=== PATIENT | male | born 1960 | race Caucasian/White ===

== ENCOUNTER → 2018-06-26 06:47 | Outpatient (CLI) | payer OTHER, SELFPAY ==
--- NOTE | 2018-06-26 06:55 | CT_ITS ---
STUDY: LOW DOSE CT LUNG CANCER SCREENING REASON FOR EXAM: Male, 58 years old. 30 pack-year smoking history. RADIATION DOSAGE (If Supplied By Facility): CTDIvol = ( 3.40 ) mGy, DLP = ( 103.82 ) mGycm TECHNIQUE: No contrast was administered. Low dose technique was utilized (average mAS-38 and kVp 120). 1.25 mm axial source images with a slice interval of 1.25-mm were reconstructed in lung windows. 2.5 mm axial source images with a slice interval of 2.5-mm were reconstructed in lung windows. 5.0 mm axial source images with a slice interval of 5.0-mm were reconstructed in soft tissue windows. Nodule measured using lung windows on PACS and/or independent workstation with automated measurement of minimum and maximum diameter. Nodule measurement reported as average diameter rounded to the nearest whole number. Growth is defined as an increase ins size of greater than 1.5 mm. # of Images: 523 COMPARISON: CT of the chest, January 13, 2016. NODULES: Nodule #: 1 Density: Solid Lung location: Right upper lobe: Along the horizontal fissure Location in series: Series Number: 1002 Image: 143 Size - D1 x D2 mm: 8 x 6 mm: 7 mm average diameter Margin: Smooth Shape: Teardrop Calcification: No Fat: No Temporal comparison: Stable Nodule #: 2 Density: Solid Lung location: Right middle lobe: 0.5 cm from pleura Location in series: Series Number: 1002 Image: 150 Size - D1 x D2 mm: 5 x 5 mm: 5 mm average diameter Margin: Smooth Shape: Round Calcification: No Fat: No Temporal comparison: Stable Nodule #: 3 Density: Solid Lung location: Right lower lobe: Pleural-based Location in series: Series Number: 1002 Image: 171 Size - D1 x D2 mm: 4 x 4 mm: 4 mm average diameter Margin: Smooth Shape: Round Calcification: No Fat: No Temporal comparison: Stable Total lung nodules (excluding granulomas): 3 Emphysema: No Endobronchial lesion: No Aorta: There is minimal atherosclerotic tortuosity of the thoracic aorta without aneurysm. Coronary arteries: There are coronary artery calcifications. Heart: Normal Pulmonary artery: Normal Mediastinal nodes: None Other chest and abdominal findings: Minimal degenerative changes of the thoracic spine. CT/Low Dose CT Lung Screening IMPRESSION: Lung-RADS category 2 - Continue annual screening with LDCT in 12 months. There is no significant interval change. IMPORTANT NOTES FOR USE: ACR Lung-RADS Version 1.0 Assessment Categories Release Date: January 05, 2014 Category: Coded 0-4 bases on nodule(s) with highest degree of suspicion. Negative screen is defined as categories 1 and 2; a positive screen is defined as categories 3 and 4. Category 3 and 4A nodules that are unchanged on interval CT should be coded as category 2, and individuals returned to screening in 12 months. Category 4X: Category 3 or 4 nodules with additional imaging findings that increase the suspicion of lung cancer, such as spiculation, GGN that doubles in size in 1 year, enlarged lymph notes, etc. Category Modifiers: S (significant finding unrelated to lung cancer) and C (prior history of treated lung cancer) may be added to the 0-4 Lung-RADS Electronically Signed: Faustino José DO at 18:25 EDT Tel [phone], Service support ,
== END ==
PROVIDERS: Family Provider Internal Medicine; PCP Internal Medicine; Referring Provider Internal Medicine; Visit Provider Internal Medicine
DX: J44.9 Chronic obstructive pulmonary disease, unspecified (principal)
CPT/HCPCS: G0297

== ENCOUNTER → 2019-05-30 | Outpatient (CLI) | payer OTHER, SELFPAY ==
[2019-05-26 15:26] VITALS: BMI 26.9
--- NOTE | 2019-05-30 06:55 | CT_ITS ---
STUDY: CT PELVIS WITH CONTRAST REASON FOR EXAM: Male, 59 years old. Right groin mass. History of bilateral inguinal hernias. RADIATION DOSAGE (If Supplied By Facility): CTDIvol = ( 18.37 ) mGy, DLP = ( 996.21 ) mGycm TECHNIQUE: Transaxial imaging of the pelvis was performed without oral contrast. 100ml IV/Oral Isovue 300 was administered intravenously. Multiplanar coronal and sagittal images were reformatted. Individualized dose optimization techniques were used for this CT. COMPARISON: None. FINDINGS: Bilateral uncomplicated fat-containing inguinal hernias (axial image 66 series 2). Tiny uncomplicated fat-containing umbilical hernia. Minimal paraspinal muscle atrophy. No soft tissue mass. Vascular calcifications. No vascular occlusion. No aneurysm. Small surgical clips at the right groin (axial image 60 series 2). Prostate calcifications. Normal urinary bladder. Normal visualized portions of the small and large bowel. Normal appendix (axial image 1 series 2). L5 right unilateral pars defect without spondylolisthesis. Mild facet joint arthrosis. Mild multilevel disc bulge/osteophyte complex. Multilevel neural foraminal narrowing with contact of the exiting L4 nerve roots. No acute fracture, dislocation or osseous destruction. Left sacroiliac joint arthrosis with partial osseous fusion (axial image 36 series 2). Mild bilateral hip osteoarthritis. Normal pubic symphysis arthrosis. CT/Pelvis WITH IV Contrast IMPRESSION: Bilateral uncomplicated fat-containing inguinal hernias Tiny uncomplicated fat-containing umbilical hernia Vascular calcifications without occlusion or aneurysm L5 right unilateral pars defect with associated lower lumbar degenerative features Electronically Signed: Amos Park DO at 8:36 EDT Tel , Service support ,
== END | disposition home or self-care (01) ==
LOC: CT 06:53
PROVIDERS: Family Provider Family Medicine; PCP Family Medicine; Referring Provider Surgery; Visit Provider Surgery
DX: R19.09 Other intra-abdominal and pelvic swelling, mass and lump (principal)
CPT/HCPCS: 72193; Q9967

== ENCOUNTER → 2019-06-11 | Outpatient (CLI) | payer OTHER, SELFPAY ==
[2019-06-03 13:34] VITALS: BMI 26.9
[2019-06-11 13:02] LABS: T4 Free Direct 1.09 ng/dL (0.76-1.46); Thyroid Stim Hormone (TSH) 0.65 uIU/mL (0.358-3.74)
[2019-06-11 13:04] LABS: Vitamin D,25 Hydroxy 54.2 ng/mL (29.95-100.01)
== END | disposition home or self-care (01) ==
LOC: MFPLAB 11:22
PROVIDERS: Family Provider Family Medicine; PCP Family Medicine; Visit Provider Family Medicine
DX: E04.1 Nontoxic single thyroid nodule (principal); E55.9 Vitamin D deficiency, unspecified
CPT/HCPCS: 36415; 82306; 84439; 84443

== ENCOUNTER → 2019-06-16 | Outpatient (CLI) | payer OTHER, SELFPAY ==
[2019-06-03 13:34] VITALS: BMI 26.9
--- NOTE | 2019-06-16 09:44 | US_ITS ---
STUDY: THYROID ULTRASOUND REASON FOR EXAM: Male, 59 years old. Nodule. TECHNIQUE: Ultrasound evaluation of the thyroid was performed with real-time and static salazar-scale imaging. COMPARISON: None. FINDINGS: RIGHT LOBE: The right lobe of the thyroid gland measures 5.9 x 2.6 x 2.4 cm. There is a homogeneous echotexture. There are no demonstrated solid, cystic or complex lesions. LEFT LOBE: The left lobe of the thyroid gland measures 5.9 x 2.4 x 1.9 cm. There is a homogeneous echotexture. There are no demonstrated solid, cystic or complex lesions. ISTHMUS: The isthmus measures 4 mm.. The regional lymph nodes are normal. US/Thyroid IMPRESSION: Normal ultrasound examination of the thyroid. Electronically Signed: Hola Regan MD at 22:42 EDT , Service support ,
== END | disposition home or self-care (01) ==
LOC: US 09:43
PROVIDERS: Family Provider Family Medicine; PCP Family Medicine; Referring Provider Family Medicine; Visit Provider Family Medicine
DX: E04.1 Nontoxic single thyroid nodule (principal)
CPT/HCPCS: 76536

== ENCOUNTER 2019-07-08 08:15 | Outpatient (RCR) | payer OTHER, SELFPAY ==
[2019-06-03 13:34] VITALS: BMI 26.9
[2019-07-01 08:27] VITALS: BP 160/111; PULSE 65; RESP 16; TEMP 36.4; BMI 29.3
--- NOTE | 2019-07-01 09:25 | HP.PCM_ITS ---
(1) Lumbar disc disease Status: Chronic Current Visit: No Code(s): M51.9 - Unspecified thoracic, thoracolumbar and lumbosacral intervertebral disc disorder (2) Varicose veins with inflammation Status: Chronic Current Visit: Yes Code(s): I83.10 - Varicose veins of unspecified lower extremity with inflammation (3) Leg swelling Status: Chronic Current Visit: Yes Code(s): M79.89 - Other specified soft tissue disorders (4) Leg edema Status: Chronic Current Visit: Yes Code(s): R60.0 - Localized edema (5) Hypertension Status: Chronic Current Visit: No Code(s): I10 - Essential (primary) hypertension (6) Hyperlipidemia Status: Chronic Current Visit: No Code(s): E78.5 - Hyperlipidemia, unspecified (7) Umbilical hernia without obstruction or gangrene Status: Chronic Current Visit: No Code(s): K42.9 - Umbilical hernia without obstruction or gangrene (8) Bilateral inguinal hernia Status: Chronic Current Visit: No Qualifiers: Code(s): K40.20 - Bilateral inguinal hernia, without obstruction or gangrene, not specified as recurrent (9) Femoral artery aneurysm, right Status: Chronic Current Visit: No Code(s): I72.4 - Aneurysm of artery of lower extremity (10) Venous insufficiency Status: Chronic Current Visit: Yes Code(s): I87.2 - Venous insufficiency (chronic) (peripheral) (11) History of superficial phlebitis Status: Chronic Current Visit: Yes Code(s): Z86.79 - Personal history of other diseases of the circulatory system (12) Postphlebitic syndrome with inflammation Status: Chronic Current Visit: Yes Code(s): I87.029 - Postthrombotic syndrome with inflammation of unspecified lower extremity History of Present Illness Date of Service: 07/01/19 Chief Complaint: Bilateral lower extremity swelling and edema with history of chronic venous insufficiency, varicose veins with inflammation, and superficial thrombophlebitis. History of Wound: This is a 59-year-old male who presents as a referral from his primary care physician with symptoms of swelling and edema in his lower extremities. The patient has a history of multiple episodes of superficial thrombophlebitis in the left lower extremity. He suffers from chronic venous insufficiency and varicose veins with inflammation. The swelling and edema in his lower extremities are more pronounced late each day and in the evenings. He claims to lead an active lifestyle. He sleeps on a flat mattress at night. He has no history of vein procedures in the past. Past Medical History Past Medical History: Chronic Problems (Last Reviewed 06/03/19 @ 13:03 by Estella Bran) Lumbar disc disease (Chronic) Varicose veins with inflammation (Chronic) Leg swelling (Chronic) Leg edema (Chronic) Hypertension (Chronic) Hyperlipidemia (Chronic) History of superficial phlebitis (Chronic) Postphlebitic syndrome with inflammation (Chronic) Umbilical hernia without obstruction or gangrene (Chronic) Bilateral inguinal hernia (Chronic) Groin pain, chronic, right (Chronic) Femoral artery aneurysm, right (Chronic) Venous insufficiency (Chronic) Past Medical History: Patient has a history of hypertension and hyperlipidemia. He is not on medications for these medical problems. His history is negative for myocardial infarction, congestive heart failure, diabetes mellitus, cerebrovascular accident, cancer, renal disease, pulmonary disease, thyroid disease, peripheral arterial occlusive disease, and gastroesophageal reflux disease. He has a history of lumbar disc disease. He has bilateral inguinal hernias and an umbilical hernia. He has previously undergone right femoral artery aneurysm repair. Surgical History: - - Patient is undergone right femoral artery aneurysm [place] [address] Aaron. Right inguinal hernia repair was performed at the age of 10. Patient underwent cholecystectomy in 1999. Allergies/Adverse Reactions: Allergies No Known Allergies Allergy (Verified 05/26/19 15:27) Home Medications: Ambulatory Orders Medication Instructions Recorded aspirin 325 mg tablet 325 mg PO DAILY 05/26/19 Social History: Patient is . 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 He denies use of tobacco currently. He consumes approximately 2 alcoholic beverages per night. Lives: Spouse/ Significant Other Smoking Status: Former smoker Tobacco Use: Non-smoker Alcohol: Occasional - Daily, 2 beverages Drugs: None Review of Systems Constitutional: Denies: Chills, Fever, Weight Change Eyes: Denies: Pain, Vision Change HEENT: Denies: Difficulty Hearing, Difficulty Swallowing, Sinus Congestion Cardiovascular: Denies: Chest Pain, Palpitations Respiratory: Denies: Cough, Shortness of Breath Gastrointestinal: Denies: Diarrhea, Nausea, Vomiting Genitourinary: Denies: Dysuria, Hematuria Endocrine: Denies: Heat/ Cold Intolerance, Polydipsia, Polyuria Hematologic/ Lymphatic: Denies: Easy Bruising, Easy Bleeding - Physical Exam Vital Signs Temp Pulse Resp BP 97.5 F L 65 16 160/111 H 07/01/19 08:27 07/01/19 08:27 07/01/19 08:27 07/01/19 08:27 General: Alert, Oriented x3, Cooperative, No apparent distress, Well developed, Well nourished HEENT: Atraumatic, PERRLA, EOMI, Normocephalic Oral: Moist Mucosa Neck: Supple, No JVD, Negative Carotid Bruits, Negative Hepatojugular Reflux, No Nodes, No Nuchal Rigidity, Trachea Midline Lungs: Clear to auscultation, Normal air movement, No rhonchi, No wheeze, No rales Cardiovascular: Regular rate, Regular Rhythm, Normal S1, Normal S2, No murmurs Abdomen: Soft, Non Tender, Non-Distended Extremities: No clubbing, No cyanosis, No Calf Tenderness, - - Mild bilateral swelling and edema is noted. There are plaque-like superficial lesions on the left lower extremity. These are located distally, just proximal to the left ankle, and involving the left knee. There are otherwise no open wounds or ulcerations. Wound Measurements and Assessment WC - Nurse 1 - General Ulcer Measurement Start: 07/01/19 06:58 Freq: Status: Active Protocol: Activity Type Activity Date Activity User E-Sign Co-Sign Detail Recorded Client Recorded Date Recorded By Document 07/01/19 08:27 [id number] 07/01/19 08:46 07/01/19 08:27 Wound Center Nurse 1 [Edema Assessment] -Lower Limb Edema Present Yes -Right Calf (cm) 37.7 -Right Ankle (cm) 23.7 -Left Calf (cm) 40.8 -Left Ankle (cm) 26.2 WC - Nurse 2 - General Ulcer CM Notes Start: 07/01/19 06:58 Freq: Status: Active Protocol: Activity Type Activity Date Activity User E-Sign Co-Sign Detail Recorded Client Recorded Date Recorded By Document 07/01/19 09:06 [id number] 07/01/19 09:13 07/01/19 09:06 Pain Scale: 0-10 Numeric [Pain] -Is Patient Pain Free? Yes Musculoskeletal: No Muscle Wasting Neurological: Cranial nerves II-XII grossly intact, Neuro grossly intact Psych/Mental Status: Normal Affect, Appropriate, Alert and oriented to time, place, person, mood and affect Debridement Note Post-Debridement Measurements/Treatment WC - Nurse 2 - General Ulcer CM Notes Start: 07/01/19 06:58 Freq: Status: Active Protocol: Activity Type Activity Date Activity User E-Sign Co-Sign Detail Recorded Client Recorded Date Recorded By Document 07/01/19 09:06 [id number] 07/01/19 09:13 [email or web address] 07/01/19 09:06 Pain Scale: 0-10 Numeric Is Patient Pain Free? Yes No debridement was completed today - There are no open wounds or ulcerations Assessment/Plan Active Problems (Last Reviewed 06/03/19 @ 13:03 by Estella Bran) Varicose veins with inflammation (Chronic) Leg swelling (Chronic) Leg edema (Chronic) History of superficial phlebitis (Chronic) Postphlebitic syndrome with inflammation (Chronic) Venous insufficiency (Chronic) Assessment: This is a 59-year-old male who is active. He presented with swelling and edema in his lower extremities bilaterally, worse late each day. He also presented with plaque-like lesions in his left lower extremity. Venous duplex examination has been performed, revealing incompetence of the right great saphenous vein, the right small saphenous vein, the left great saphenous vein, the left small saphenous vein, and the left anterior accessory saphenous vein. Patient also has had numerous previous episodes of superficial thrombophlebitis in the left lower extremity. A regimen of conservative treatment measures have been implemented relative to the patient's venous disease. Patient has been advised to elevate his lower extremities as much as possible. Leg elevation is to be to heart level, or higher. This is to be implemented even during daytime hours. The patient is currently sleeping on a flat mattress at night. Activity has been encouraged. Prolonged idle sitting has been discouraged. Compression is to be implemented, initially by means of SurePress wraps which will be applied on a daily basis by the patient. Patient has been instructed in the appropriate means of application. The plaque-like lesions on the patient's left lower extremity are suspected to be unrelated to his venous disease. Rather, psoriasis or other dermatological abnormalities are suspected. Patient is to be evaluated in the near future by Dermatology. Plan: Patient's blood pressure is noted to be elevated today. He has been advised to collaborate with his primary care physician in terms of blood pressure management. Recommendations with regard to his lower extremity symptoms and manifestations are as above. Conservative treatment measures are to be implemented. Leg elevation, avoidance of idle standing and sitting, active lifestyle, and compression by means of SurePress wraps is to be implemented. We will await the impressions and recommendations of the commodity buyer. Return in 1 week for reassessment. Influenza vaccine was not administered today. The patient is not a smoker. Patient weighs 234 pounds. He stands 6 feet 3 inches tall. His BMI is 29.2, which places him in an overweight category. Weight management strategies have been discussed.
[2019-07-08 08:21] VITALS: BP 157/106; PULSE 60; RESP 18; BMI 29.3
--- NOTE | 2019-07-08 08:50 | PCM.WC.HP ---
(1) Lumbar disc disease Status: Chronic Current Visit: No Code(s): M51.9 - Unspecified thoracic, thoracolumbar and lumbosacral intervertebral disc disorder (2) Varicose veins with inflammation Status: Chronic Current Visit: Yes Code(s): I83.10 - Varicose veins of unspecified lower extremity with inflammation (3) Leg swelling Status: Chronic Current Visit: Yes Code(s): M79.89 - Other specified soft tissue disorders (4) Leg edema Status: Chronic Current Visit: Yes Code(s): R60.0 - Localized edema (5) Hypertension Status: Chronic Current Visit: No Code(s): I10 - Essential (primary) hypertension (6) Hyperlipidemia Status: Chronic Current Visit: No Code(s): E78.5 - Hyperlipidemia, unspecified (7) Umbilical hernia without obstruction or gangrene Status: Chronic Current Visit: No Code(s): K42.9 - Umbilical hernia without obstruction or gangrene (8) Bilateral inguinal hernia Status: Chronic Current Visit: No Qualifiers: Code(s): K40.20 - Bilateral inguinal hernia, without obstruction or gangrene, not specified as recurrent (9) Femoral artery aneurysm, right Status: Chronic Current Visit: No Code(s): I72.4 - Aneurysm of artery of lower extremity (10) Venous insufficiency Status: Chronic Current Visit: Yes Code(s): I87.2 - Venous insufficiency (chronic) (peripheral) (11) History of superficial phlebitis Status: Chronic Current Visit: Yes Code(s): Z86.79 - Personal history of other diseases of the circulatory system (12) Postphlebitic syndrome with inflammation Status: Chronic Current Visit: Yes Code(s): I87.029 - Postthrombotic syndrome with inflammation of unspecified lower extremity History of Present Illness Date of Service: 07/08/19 Chief Complaint: Bilateral lower extremity swelling and edema with history of chronic venous insufficiency, varicose veins with inflammation, and superficial thrombophlebitis. History of Wound: This is a 59-year-old male who presents as a referral from his primary care physician with symptoms of swelling and edema in his lower extremities. The patient has a history of multiple episodes of superficial thrombophlebitis in the left lower extremity. He suffers from chronic venous insufficiency and varicose veins with inflammation. The swelling and edema in his lower extremities are more pronounced late each day and in the evenings. He claims to lead an active lifestyle. He sleeps on a flat mattress at night. He has no history of vein procedures in the past. Past Medical History Past Medical History: Chronic Problems (Last Reviewed 06/03/19 @ 13:03 by Estella Bran) Lumbar disc disease (Chronic) Varicose veins with inflammation (Chronic) Leg swelling (Chronic) Leg edema (Chronic) Hypertension (Chronic) Hyperlipidemia (Chronic) History of superficial phlebitis (Chronic) Postphlebitic syndrome with inflammation (Chronic) Umbilical hernia without obstruction or gangrene (Chronic) Bilateral inguinal hernia (Chronic) Groin pain, chronic, right (Chronic) Femoral artery aneurysm, right (Chronic) Venous insufficiency (Chronic) Surgical History: - - Patient is undergone right femoral artery aneurysm repair [place] [address] Aaron. Right inguinal hernia repair was performed at the age of 10. Patient underwent cholecystectomy in 1999. Allergies/Adverse Reactions: Allergies No Known Allergies Allergy (Verified 05/26/19 15:27) Home Medications: Ambulatory Orders Medication Instructions Recorded aspirin 325 mg tablet 325 mg PO DAILY 05/26/19 Lives: Spouse/ Significant Other Smoking Status: Former smoker Tobacco Use: Non-smoker Alcohol: Occasional - Daily, 2 beverages Drugs: None Review of Systems Constitutional: Denies: Chills, Fever, Weight Change Eyes: Denies: Pain, Vision Change HEENT: Denies: Difficulty Hearing, Difficulty Swallowing, Sinus Congestion Cardiovascular: Denies: Chest Pain, Palpitations Respiratory: Denies: Cough, Shortness of Breath Gastrointestinal: Denies: Diarrhea, Nausea, Vomiting Genitourinary: Denies: Dysuria, Hematuria Endocrine: Denies: Heat/ Cold Intolerance, Polydipsia, Polyuria Hematologic/ Lymphatic: Denies: Easy Bruising, Easy Bleeding - Physical Exam Vital Signs Temp Pulse Resp BP 97.5 F L 60 18 157/106 H 07/01/19 08:27 07/08/19 08:21 07/08/19 08:21 07/08/19 08:21 General: Alert, Oriented x3, Cooperative, No apparent distress, Well developed, Well nourished HEENT: Atraumatic, PERRLA, EOMI, Normocephalic Oral: Moist Mucosa Neck: No JVD Lungs: Normal air movement Abdomen: Non-Distended Extremities: No clubbing, No cyanosis, No Calf Tenderness, - - Mild swelling and edema persist in the lower extremities bilaterally. However, the swelling and edema has diminished since the patient's previous visit. Calf circumferences are decreased, and documented elsewhere. There are no open wounds or ulcerations. There are scattered plaque-like lesions in the left lower extremity, suspected to be psoriatic in nature. Skin: No breakdown - There are some plaque-like, erythematous superficial lesions in the left lower extremity. Wound Measurements and Assessment WC - Nurse 1 - General Ulcer Measurement Start: 07/01/19 06:58 Freq: Status: Active Protocol: Activity Type Activity Date Activity User E-Sign Co-Sign Detail Recorded Client Recorded Date Recorded By Document 07/08/19 08:21 [place] [id number] 07/08/19 08:24 [place] 07/08/19 08:21 Wound Center Nurse 1 [Edema Assessment] -Right Calf (cm) 26 -Right Ankle (cm) 23 -Left Calf (cm) 39.5 -Left Ankle (cm) 25 Musculoskeletal: No Muscle Wasting Neurological: Cranial nerves II-XII grossly intact, Neuro grossly intact Psych/Mental Status: Normal Affect, Appropriate, Alert and oriented to time, place, person, mood and affect Debridement Note Post-Debridement Measurements/Treatment WC - Nurse 2 - General Ulcer CM Notes Start: 07/01/19 06:58 Freq: Status: Active Protocol: Activity Type Activity Date Activity User E-Sign Co-Sign Detail Recorded Client Recorded Date Recorded By Document 07/01/19 09:06 [id number] 07/01/19 09:13 07/01/19 09:06 Pain Scale: 0-10 Numeric Is Patient Pain Free? Yes No debridement was completed today - There are no open wounds or ulcerations Assessment/Plan Active Problems (Last Reviewed 06/03/19 @ 13:03 by Estella Bran) Varicose veins with inflammation (Chronic) Leg swelling (Chronic) Leg edema (Chronic) History of superficial phlebitis (Chronic) Postphlebitic syndrome with inflammation (Chronic) Venous insufficiency (Chronic) Assessment: This is a 59-year-old male who is active. He presented with swelling and edema in his lower extremities bilaterally, worse late each day. He also presented with plaque-like lesions in his left lower extremity. Venous duplex examination has been performed, revealing incompetence of the right great saphenous vein, the right small saphenous vein, the left great saphenous vein, the left small saphenous vein, and the left anterior accessory saphenous vein. Patient also has had numerous previous episodes of superficial thrombophlebitis in the left lower extremity. A regimen of conservative treatment measures have been implemented relative to the patient's venous disease. Patient has been advised to elevate his lower extremities as much as possible. Leg elevation is to be to heart level, or higher. This is to be implemented even during daytime hours. The patient is currently sleeping on a flat mattress at night. Activity has been encouraged. Prolonged idle sitting has been discouraged. Compression is to be continued by means of SurePress wraps which will be applied on a daily basis by the patient. Patient has been instructed in the appropriate means of application. The plaque-like lesions on the patient's left lower extremity are suspected to be unrelated to his venous disease. Rather, psoriasis or other dermatological abnormalities are suspected. Patient is to be evaluated by Dermatology on of this week, 2 days hence. Plan: Recommendations with regard to his lower extremity symptoms and manifestations are as above. Conservative treatment measures are to be continued. Leg elevation, avoidance of idle standing and sitting, active lifestyle, and compression by means of SurePress wraps are to be continued. We will await the impressions and recommendations of the furniture crater. Return in 1 week for reassessment. Influenza vaccine was not administered today. The patient is not a smoker. Patient weighs 234 pounds. He stands 6 feet 3 inches tall. His BMI is 29.2, which places him in an overweight category. Weight management strategies have been discussed.
== END 2019-07-10 23:59 ==
LOC: WC 08:15
PROVIDERS: Family Provider Family Medicine; PCP Family Medicine; Visit Provider Surgery
DX: I83.10 Varicose veins of unspecified lower extremity with inflammation (principal); I87.8 Other specified disorders of veins; M51.36 Other intervertebral disc degeneration, lumbar region; I10 Essential (primary) hypertension; E78.5 Hyperlipidemia, unspecified; I72.4 Aneurysm of artery of lower extremity; Z86.79 Personal history of other diseases of the circulatory system; I87.029 Postthrombotic syndrome with inflammation of unspecified lower extremity; Z79.899 Other long term (current) drug therapy; Z79.82 Long term (current) use of aspirin
CPT/HCPCS: 99212; G0463

== ENCOUNTER 2019-08-05 08:00 | Outpatient (RCR) | payer OTHER, SELFPAY ==
[2019-07-11 01:28] VITALS: BP 157/106; PULSE 60; RESP 18; TEMP 36.4
[2019-07-15 09:16] VITALS: BP 150/101; PULSE 68; RESP 18; TEMP 36.3; BMI 29.3
--- NOTE | 2019-07-15 09:44 | PCM.WC.HP ---
(1) Lumbar disc disease Status: Chronic Current Visit: No Code(s): M51.9 - Unspecified thoracic, thoracolumbar and lumbosacral intervertebral disc disorder (2) Varicose veins with inflammation Status: Chronic Current Visit: Yes Code(s): I83.10 - Varicose veins of unspecified lower extremity with inflammation (3) Leg swelling Status: Chronic Current Visit: Yes Code(s): M79.89 - Other specified soft tissue disorders (4) Leg edema Status: Chronic Current Visit: Yes Code(s): R60.0 - Localized edema (5) Hypertension Status: Chronic Current Visit: No Code(s): I10 - Essential (primary) hypertension (6) Hyperlipidemia Status: Chronic Current Visit: No Code(s): E78.5 - Hyperlipidemia, unspecified (7) History of superficial phlebitis Status: Chronic Current Visit: Yes Code(s): Z86.79 - Personal history of other diseases of the circulatory system (8) Postphlebitic syndrome with inflammation Status: Chronic Current Visit: Yes Code(s): I87.029 - Postthrombotic syndrome with inflammation of unspecified lower extremity (9) Umbilical hernia without obstruction or gangrene Status: Chronic Current Visit: No Code(s): K42.9 - Umbilical hernia without obstruction or gangrene (10) Bilateral inguinal hernia Status: Chronic Current Visit: No Qualifiers: Code(s): K40.20 - Bilateral inguinal hernia, without obstruction or gangrene, not specified as recurrent (11) Groin pain, chronic, right Status: Chronic Current Visit: No Code(s): R10.31 - Right lower quadrant pain; G89.29 - Other chronic pain (12) Femoral artery aneurysm, right Status: Chronic Current Visit: No Code(s): I72.4 - Aneurysm of artery of lower extremity (13) Venous insufficiency Status: Chronic Current Visit: Yes Code(s): I87.2 - Venous insufficiency (chronic) (peripheral) (14) Nummular dermatitis Status: Chronic Current Visit: Yes Code(s): L30.0 - Nummular dermatitis History of Present Illness Date of Service: 07/15/19 Chief Complaint: Bilateral lower extremity swelling and edema with history of chronic venous insufficiency, varicose veins with inflammation, and superficial thrombophlebitis. History of Wound: This is a 59-year-old male who presented as a referral from his primary care physician with symptoms of swelling and edema in his lower extremities. The patient has a history of multiple episodes of superficial thrombophlebitis in the left lower extremity. He suffers from chronic venous insufficiency and varicose veins with inflammation. The swelling and edema in his lower extremities are more pronounced late each day and in the evenings. He claims to lead an active lifestyle. He sleeps on a flat mattress at night. He has no history of vein procedures in the past. Past Medical History Past Medical History: Chronic Problems (Last Reviewed 06/03/19 @ 13:03 by Estella Bran) Lumbar disc disease (Chronic) Varicose veins with inflammation (Chronic) Leg swelling (Chronic) Leg edema (Chronic) Hypertension (Chronic) Hyperlipidemia (Chronic) History of superficial phlebitis (Chronic) Postphlebitic syndrome with inflammation (Chronic) Nummular dermatitis (Chronic) Umbilical hernia without obstruction or gangrene (Chronic) Bilateral inguinal hernia (Chronic) Groin pain, chronic, right (Chronic) Femoral artery aneurysm, right (Chronic) Venous insufficiency (Chronic) Surgical History: - - Patient is undergone right femoral artery aneurysm repair in [address] Aaron. Right inguinal hernia repair was performed at the age of 10. Patient underwent cholecystectomy in 1999. Allergies/Adverse Reactions: Allergies No Known Allergies Allergy (Verified 05/26/19 15:27) Home Medications: Ambulatory Orders Medication Instructions Recorded aspirin 325 mg tablet 325 mg PO DAILY 05/26/19 Smoking Status: Former smoker Tobacco Use: Non-smoker Review of Systems Constitutional: Denies: Chills, Fever, Weight Change Eyes: Denies: Pain, Vision Change HEENT: Denies: Difficulty Hearing, Difficulty Swallowing, Sinus Congestion Cardiovascular: Denies: Chest Pain, Palpitations Respiratory: Denies: Cough, Shortness of Breath Gastrointestinal: Denies: Diarrhea, Nausea, Vomiting Genitourinary: Denies: Dysuria, Hematuria Endocrine: Denies: Heat/ Cold Intolerance, Polydipsia, Polyuria Hematologic/ Lymphatic: Denies: Easy Bruising, Easy Bleeding - Physical Exam Vital Signs Temp Pulse Resp BP 97.3 F L 68 18 150/101 H 07/15/19 09:16 07/15/19 09:16 07/15/19 09:16 07/15/19 09:16 General: Alert, Oriented x3, Cooperative, No apparent distress, Well developed, Well nourished HEENT: Atraumatic, PERRLA, EOMI, Normocephalic Oral: Moist Mucosa Neck: No JVD Lungs: Normal air movement Abdomen: Non-Distended Extremities: No clubbing, No cyanosis, No Calf Tenderness, - - There is no significant swelling or edema in the patient's lower extremities. There are no neno open wounds or ulcerations. The dermatitic lesions on the left lower extremity are markedly improved, and now nearly resolved. There is no sign of infection or cellulitis. Wound Measurements and Assessment WC - Nurse 1 - General Ulcer Measurement Start: 07/15/19 09:16 Freq: Status: Active Protocol: Activity Type Activity Date Activity User E-Sign Co-Sign Detail Recorded Client Recorded Date Recorded By Document 07/15/19 09:16 DL [id number] 07/15/19 09:25 DL 07/15/19 09:16 Wound Center Nurse 1 [Edema Assessment] -Right Calf (cm) 35.5 -Right Ankle (cm) 23 -Left Calf (cm) 38 -Left Ankle (cm) 24 Musculoskeletal: No Muscle Wasting Neurological: Cranial nerves II-XII grossly intact, Neuro grossly intact Psych/Mental Status: Normal Affect, Appropriate, Alert and oriented to time, place, person, mood and affect Debridement Note No debridement was completed today - There are no open wounds or ulcerations. Assessment/Plan Active Problems (Last Reviewed 06/03/19 @ 13:03 by Estella Bran) Varicose veins with inflammation (Chronic) Leg swelling (Chronic) Leg edema (Chronic) History of superficial phlebitis (Chronic) Postphlebitic syndrome with inflammation (Chronic) Nummular dermatitis (Chronic) Venous insufficiency (Chronic) Assessment: This is a 59-year-old male who is active. He presented with swelling and edema in his lower extremities bilaterally, worse late each day. He also presented with plaque-like lesions in his left lower extremity. Venous duplex examination has been performed, revealing incompetence of the right great saphenous vein, the right small saphenous vein, the left great saphenous vein, the left small saphenous vein, and the left anterior accessory saphenous vein. Patient also has had numerous previous episodes of superficial thrombophlebitis in the left lower extremity. A regimen of conservative treatment measures have been implemented relative to the patient's venous disease. Patient has been advised to elevate his lower extremities as much as possible. Leg elevation is to be to heart level, or higher. This is to be implemented even during daytime hours. The patient is currently sleeping on a flat mattress at night. Activity has been encouraged. Prolonged idle sitting has been discouraged. The patient has been evaluated by the Dermatology service Dr. Jules's office, and has been diagnosed with nummular dermatitis, a form of eczema. A topical cream and oral medication have been prescribed. The medical record has been forwarded to my personal office, and I have personally forwarded to this facility, though no record exists of this medical document currently at this location. Suffice to note that the patient has demonstrated significant improvement as a result of the Dermatology prescriptions, both topical and oral. The skin lesions are markedly improved. At today's visit, the patient has been provided a prescription for graduated compression stockings of 20 to 30 mmHg compression, knee-high length. He is to obtain these compression stockings as soon as possible and begin to wear on a daily basis. Plan: Recommendations with regard to his lower extremity symptoms and manifestations are as above. Conservative treatment measures are to be continued. Leg elevation, avoidance of idle standing and sitting, active lifestyle, and compression by means of knee-high graduated compression stockings of 20 to 30 mmHg compression. The patient is to continue with the medications prescribed by the Dermatology service. The patient is to return in 2 to 3 weeks for reassessment. At that time, it is anticipated that discharged from our facility will be likely, given anticipated improvement in his nummular dermatitis and the swelling/edema for which he initially presented. Influenza vaccine was not administered today. The patient is not a smoker. Patient weighs 234 pounds. He stands 6 feet 3 inches tall. His BMI is 29.2, which places him in an overweight category. Weight management strategies have been discussed.
[2019-08-05 08:11] VITALS: BP 155/86; PULSE 67; RESP 20; TEMP 36.8; BMI 29.3
--- NOTE | 2019-08-05 08:36 | HP.PCM_ITS ---
(1) Lumbar disc disease Status: Chronic Current Visit: No Code(s): M51.9 - Unspecified thoracic, thoracolumbar and lumbosacral intervertebral disc disorder (2) Varicose veins with inflammation Status: Chronic Current Visit: Yes Code(s): I83.10 - Varicose veins of unspecified lower extremity with inflammation (3) Leg swelling Status: Chronic Current Visit: Yes Code(s): M79.89 - Other specified soft tissue disorders (4) Leg edema Status: Chronic Current Visit: Yes Code(s): R60.0 - Localized edema (5) Hypertension Status: Chronic Current Visit: No Code(s): I10 - Essential (primary) hypertension (6) Hyperlipidemia Status: Chronic Current Visit: No Code(s): E78.5 - Hyperlipidemia, unspecified (7) History of superficial phlebitis Status: Chronic Current Visit: Yes Code(s): Z86.79 - Personal history of other diseases of the circulatory system (8) Postphlebitic syndrome with inflammation Status: Chronic Current Visit: Yes Code(s): I87.029 - Postthrombotic syndrome with inflammation of unspecified lower extremity (9) Umbilical hernia without obstruction or gangrene Status: Chronic Current Visit: No Code(s): K42.9 - Umbilical hernia without obstruction or gangrene (10) Bilateral inguinal hernia Status: Chronic Current Visit: No Qualifiers: Code(s): K40.20 - Bilateral inguinal hernia, without obstruction or gangrene, not specified as recurrent (11) Groin pain, chronic, right Status: Chronic Current Visit: No Code(s): R10.31 - Right lower quadrant pain; G89.29 - Other chronic pain (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 History of Wound: This is a 59-year-old male who presented as a referral from his primary care physician with symptoms of swelling and edema in his lower extremities. The patient has a history of multiple episodes of superficial thrombophlebitis in the left lower extremity. He suffers from chronic venous insufficiency and varicose veins with inflammation. The swelling and edema in his lower extremities are more pronounced late each day and in the evenings. He claims to lead an active lifestyle. He sleeps on a flat mattress at night. He has no history of vein procedures in the past. Past Medical History Past Medical History: Chronic Problems (Last Reviewed 06/03/19 @ 13:03 by Estella Bran) Lumbar disc disease (Chronic) Varicose veins with inflammation (Chronic) Leg swelling (Chronic) Leg edema (Chronic) Hypertension (Chronic) Hyperlipidemia (Chronic) History of superficial phlebitis (Chronic) Postphlebitic syndrome with inflammation (Chronic) Nummular dermatitis (Chronic) Umbilical hernia without obstruction or gangrene (Chronic) Bilateral inguinal hernia (Chronic) Groin pain, chronic, right (Chronic) Femoral artery aneurysm, right (Chronic) Venous insufficiency (Chronic) Surgical History: - - Patient is undergone right femoral artery aneurysm repair in [address] Aaron. Right inguinal hernia repair was performed at the age of 10. Patient underwent cholecystectomy in 1999. Allergies/Adverse Reactions: Allergies No Known Allergies Allergy (Verified 05/26/19 15:27) Home Medications: Ambulatory Orders Medication Instructions Recorded aspirin 325 mg tablet 325 mg PO DAILY 05/26/19 Smoking Status: Former smoker Tobacco Use: Non-smoker Review of Systems Constitutional: Denies: Chills, Fever, Weight Change Eyes: Denies: Pain, Vision Change HEENT: Denies: Difficulty Hearing, Difficulty Swallowing, Sinus Congestion Cardiovascular: Denies: Chest Pain, Palpitations Respiratory: Denies: Cough, Shortness of Breath Gastrointestinal: Denies: Diarrhea, Nausea, Vomiting Genitourinary: Denies: Dysuria, Hematuria Endocrine: Denies: Heat/ Cold Intolerance, Polydipsia, Polyuria Hematologic/ Lymphatic: Denies: Easy Bruising, Easy Bleeding - Physical Exam Vital Signs Temp Pulse Resp BP 98.2 F 67 20 H 155/86 H 08/05/19 08:11 08/05/19 08:11 08/05/19 08:11 08/05/19 08:11 General: Alert, Oriented x3, Cooperative, No apparent distress, Well developed, Well nourished HEENT: Atraumatic, PERRLA, EOMI, Normocephalic Oral: Moist Mucosa Neck: No JVD Lungs: Normal air movement Abdomen: Non-Distended Extremities: No clubbing, No cyanosis, No edema, No Calf Tenderness, - - There is no significant swelling or edema in the patient's lower extremities. There are no open wounds or ulcerations. There is no sign of infection or cellulitis. The dermatitic changes in the patient's left lower extremity have now completely resolved. Skin: No rashes, No breakdown Wound Measurements and Assessment WC - Nurse 1 - General Ulcer Measurement Start: 07/15/19 09:16 Freq: Status: Active Protocol: Activity Type Activity Date Activity User E-Sign Co-Sign Detail Recorded Client Recorded Date Recorded By Document 08/05/19 08:11 DL [id number] 08/05/19 08:17 DL 08/05/19 08:11 Wound Center Nurse 1 [Edema Assessment] -Right Calf (cm) 36 -Right Ankle (cm) 23.5 -Left Calf (cm) 37.5 -Left Ankle (cm) 24.5 WC - Nurse 2 - General Ulcer CM Notes Start: 07/15/19 09:16 Freq: Status: Active Protocol: Activity Type Activity Date Activity User E-Sign Co-Sign Detail Recorded Client Recorded Date Recorded By Document 08/05/19 08:30 DL [id number] 08/05/19 08:30 DL 08/05/19 08:30 Pain Scale: 0-10 Numeric [Pain] -Is Patient Pain Free? Yes Musculoskeletal: No Muscle Wasting Neurological: Cranial nerves II-XII grossly intact, Neuro grossly intact Psych/Mental Status: Normal Affect, Appropriate, Alert and oriented to time, place, person, mood and affect Debridement Note Post-Debridement Measurements/Treatment WC - Nurse 2 - General Ulcer CM Notes Start: 07/15/19 09:16 Freq: Status: Active Protocol: Activity Type Activity Date Activity User E-Sign Co-Sign Detail Recorded Client Recorded Date Recorded By Document 08/05/19 08:30 DL [id number] 08/05/19 08:30 DL 08/05/19 08:30 Pain Scale: 0-10 Numeric Is Patient Pain Free? Yes No debridement was completed today - There are no open wounds or ulcerations Assessment/Plan Active Problems (Last Reviewed 06/03/19 @ 13:03 by Estella Bran) Varicose veins with inflammation (Chronic) Leg swelling (Chronic) Leg edema (Chronic) History of superficial phlebitis (Chronic) Postphlebitic syndrome with inflammation (Chronic) Nummular dermatitis (Chronic) Venous insufficiency (Chronic) Assessment: This is a 59-year-old male who is active. He presented with swelling and edema in his lower extremities bilaterally, worse late each day. He also presented with plaque-like lesions in his left lower extremity. Venous duplex examination has been performed, revealing incompetence of the right great saphenous vein, the right small saphenous vein, the left great saphenous vein, the left small saphenous vein, and the left anterior accessory saphenous vein. Patient also has had numerous previous episodes of superficial thrombophlebitis in the left lower extremity. A regimen of conservative treatment measures have been implemented relative to the patient's venous disease. Patient has been advised to elevate his lower extremities as much as possible. Leg elevation is to be to heart level, or higher. This is to be implemented even during daytime hours. The patient is currently sleeping on a flat mattress at night. Activity has been encouraged. Prolonged idle sitting has been discouraged. The patient has been evaluated by the Dermatology service Dr. Jules's office, and has been diagnosed with nummular dermatitis, a form of eczema. A topical cream and oral medication have been prescribed. As result of Dr. Jules's medication protocol, the patient has demonstrated significant improvement as a result of the Dermatology prescriptions, both topical and oral. The dermatitic changes in the patient's left lower extremity are now completely resolved, and his left lower extremity is back to normal. Plan: Recommendations with regard to his lower extremity symptoms and manifestations are as above. Conservative treatment measures are to be continued. Leg elevation, avoidance of idle standing and sitting, active lifestyle, and compression by means of knee-high graduated compression stockings of 20 to 30 mmHg compression. The patient has obtained his knee-high graduated compression stockings, which are of 20 to 30 mmHg compression. He is wearing t hese daily without any complaints. The nummular dermatitis in the left lower extremity has now completely resolved as result of the prescriptions provided by Dr. Jules. The patient has implemented the conservative treatment measures relative to the swelling in his lower extremities and his venous disease, and appears to be doing well, with no significant swelling noted in his lower extremities. As result of the patient's vast improvement, he will now be discharged, and will follow-up henceforth on an as-needed basis. Influenza vaccine was not administered today. The patient is not a smoker. Patient weighs 234 pounds. He stands 6 feet 3 inches tall. His BMI is 29.2, which places him in an overweight category. Weight management strategies have been discussed.
== END 2019-08-09 23:59 ==
LOC: WC 08:00
PROVIDERS: Family Provider Family Medicine; PCP Family Medicine; Visit Provider Surgery
DX: I83.10 Varicose veins of unspecified lower extremity with inflammation (principal); M51.36 Other intervertebral disc degeneration, lumbar region; M79.89 Other specified soft tissue disorders; I10 Essential (primary) hypertension; R60.0 Localized edema; E78.5 Hyperlipidemia, unspecified; L30.0 Nummular dermatitis; Z87.891 Personal history of nicotine dependence; Z79.82 Long term (current) use of aspirin; M51.34 Other intervertebral disc degeneration, thoracic region; M51.35 Other intervertebral disc degeneration, thoracolumbar region; M51.37 Other intervertebral disc degeneration, lumbosacral region
CPT/HCPCS: 99212; G0463

== ENCOUNTER → 2019-08-19 15:37 | Outpatient (CLI) | payer OTHER, SELFPAY ==
[2019-08-05 08:11] VITALS: BMI 29.3
[2019-08-19 18:35] LABS: AST(SGOT) 20 U/L (15-37); Alanine Aminotransfer ALT/SGPT 26 U/L (16-61); Albumin, Serum 3.9 g/dL (3.2-5.0); Alkaline Phosphatase 120 U/L (45-117); Anion Gap 7 (5-15); BUN 13 mg/dL (7-18); BUN/Creat Ratio 12.1 RATIO (10-20); CPK Total, Creatine Kinase 92 U/L (39-308); Calcium,Total 8.6 mg/dL (8.5-10.1); Chloride 105 mmol/L (98-107); Creatinine, Serum 1.07 mg/dL (0.70-1.30); EST Glomerular Filtration Rate 75 mL/min (>60); Est Glom Filt Rate - Afr Amer 91 mL/min (>60); Ferritin 146 ng/mL (26-388); Globulin 3.8 g/dL (2.2-4.2); Glucose 68 mg/dL (74-106); Magnesium 2.2 mg/dL (1.6-2.6); Potassium 3.3 mmol/L (3.5-5.1); Protein, Total 7.7 g/dL (6.4-8.2); Sodium Level 141 mmol/L (136-145)
== END ==
PROVIDERS: Family Provider Family Medicine; PCP Family Medicine; Visit Provider Family Medicine
DX: I10 Essential (primary) hypertension (principal); R25.2 Cramp and spasm
CPT/HCPCS: 36415; 80053; 82550; 82728; 83735

== ENCOUNTER → 2019-08-26 12:49 | Outpatient (CLI) | payer OTHER, SELFPAY ==
[2019-08-05 08:11] VITALS: BMI 29.3
--- NOTE | 2019-08-26 12:54 | ART_ITS ---
Reason For Study: claudication Procedure A bilateral lower extremity continuous wave Doppler with analog waveform analysis and ankle brachial indexes. Left Segmental Pressures Left brachial= 136mmHg. Left posterior tibial artery = 161mmHg. Left dorsalis pedis artery = 148mmHg. The left dorsalis pedis waveforms are triphasic. The left posterior tibial artery waveforms are triphasic. Right Segmental Pressures Right brachial= 131mmHg. Right posterior tibial artery = 166mmHg. Right dorsalis pedis artery = 172mmHg. The right dorsalis pedis waveforms are triphasic. The right posterior tibial artery waveforms are triphasic. Interpretation Summary Triphasic Doppler waveforms are noted at ankle level bilaterally. Resting ankle-brachial indices are normal bilaterally. The patient was exercised for 5 minutes, following which ankle pressures augmented bilaterally, which is a normal physiological response. There is no evidence of significant arterial occlusive disease in the lower extremities bilaterally. Ordering Physician: Shay Olvera Performed By: ELIZABETH DELA CRUZ Henrique
== END ==
PROVIDERS: Family Provider Family Medicine; PCP Family Medicine; Referring Provider Family Medicine; Visit Provider Family Medicine
DX: I73.9 Peripheral vascular disease, unspecified (principal)
CPT/HCPCS: 93922

== ENCOUNTER → 2019-09-09 14:05 | Outpatient (CLI) | payer OTHER, SELFPAY ==
[2019-09-09 15:25] LABS: Anion Gap 5 (5-15); BUN 11 mg/dL (7-18); BUN/Creat Ratio 10.7 RATIO (10-20); Calcium,Total 8.5 mg/dL (8.5-10.1); Chloride 108 mmol/L (98-107); Creatinine, Serum 1.03 mg/dL (0.70-1.30); EST Glomerular Filtration Rate 79 mL/min (>60); Est Glom Filt Rate - Afr Amer 95 mL/min (>60); Glucose 74 mg/dL (74-106); Potassium 3.5 mmol/L (3.5-5.1); Sodium Level 143 mmol/L (136-145)
== END ==
PROVIDERS: Family Provider Family Medicine; PCP Family Medicine; Visit Provider Family Medicine
DX: I10 Essential (primary) hypertension (principal)
CPT/HCPCS: 36415; 80048

== ENCOUNTER → 2020-01-27 12:31 | Outpatient (CLI) | payer OTHER, SELFPAY ==
--- NOTE | 2020-01-27 12:34 | RAD_ITS ---
STUDY: X-RAY - RIGHT KNEE REASON FOR EXAM: Male, 59 years old. knee pain, left more than right TECHNIQUE: 4 view(s) of the knee. COMPARISON: None. FINDINGS: Normal visualized distal femur. Normal visualized proximal tibia and fibula. Normal proximal tibiofibular articulation. Normal medial femorotibial compartment. Normal lateral femorotibial compartment. Normal patellofemoral articulation. The soft tissue structures are unremarkable. RAD/Knee 4 or More Views IMPRESSION: Normal x-ray examination of the knee. Electronically Signed: Grabiel Riley MD at 13:02 EDT Tel , Service support ,
--- NOTE | 2020-01-27 12:34 | RAD_ITS ---
STUDY: X-RAY - LEFT KNEE REASON FOR EXAM: Male, 59 years old. knee pain, left more than right TECHNIQUE: 4 view(s) of the knee. COMPARISON: None. FINDINGS: Normal visualized distal femur. Normal visualized proximal tibia and fibula. Normal proximal tibiofibular articulation. Normal medial femorotibial compartment. Normal lateral femorotibial compartment. Normal patellofemoral articulation. There is a soft tissue prominence in the suprapatellar region suggesting a small volume joint effusion. The soft tissue structures are unremarkable. RAD/Knee 4 or More Views IMPRESSION: Effusion, as described above. MRI would be useful. Electronically Signed: Grabiel Riley MD at 13:01 EDT Tel , Service support ,
== END ==
PROVIDERS: PCP Family Medicine; Referring Provider Family Medicine; Visit Provider Family Medicine
DX: M25.569 Pain in unspecified knee (principal)
CPT/HCPCS: 73564

== ENCOUNTER → 2020-02-04 13:12 | Outpatient (CLI) | payer OTHER, SELFPAY ==
--- NOTE | 2020-02-04 13:18 | VDLE_ITS ---
Reason For Study: Pain in lt leg RIGHT LEFT CFV is compressible, spontaneous, phasic, CFV is compressible, spontaneous, phasic, competent and demonstrates normal competent, and demonstrates normal augmentation. augmentation. Procedure FV is compressible, spontaneous, phasic, Exam performed in department. competent and demonstrates normal A preliminary report was called and/or faxed augmentation. to [facility]. POP V is compressible, spontaneous, phasic, competent and demonstrates normal augmentation. T/P Trunk is compressible. PTV is compressible. LT PerV is compressible. GSV is partially compressible with bright intraluminal echoes consistent with chronic SVT. Interpretation Summary Deep veins of the left lower extremity are patent and compressible segmentally. There is no evidence of left lower extremity deep vein thrombosis. Valvular competence appears intact within the proximal deep venous system on the left . Chronic venous changes are noted in the left great saphenous vein, which is partially compressible and demonstrates bright intraluminal echogenicity. Ordering Physician: Mary Yancey Referring Physician: Shay Olvera Performed By: Yvonne Katz RVT
== END ==
PROVIDERS: PCP Family Medicine; Referring Provider Registered Nurse; Visit Provider Registered Nurse
DX: R22.42 Localized swelling, mass and lump, left lower limb (principal); M79.605 Pain in left leg
CPT/HCPCS: 93971

== ENCOUNTER → 2020-03-10 12:07 | Outpatient (CLI) | payer OTHER, SELFPAY ==
[2020-03-10 13:51] LABS: Bacteria 0 SEEN /hpf (None Seen); Red Blood Cells-Urine 0 SEEN /hpf (0-5); White Blood Cells 0 SEEN /hpf (0-5)
[2020-03-10 15:22] LABS: Color, Urine Yellow (Yellow); Glucose, Dipstick Normal (Normal); Ketone-Dipstick Negative (Negative); Leukocyte Esterase-Dipstick Negative /ul (Negative); Nitrite-Dipstick Negative (Negative); Occult Blood-Urine Negative /ul (Negative); Protein-Dipstick Negative (Negative); Specific Gravity, Urine 1.015 (1.002-1.030); Urine Bilirubin Dipstick Negative (Negative); Urine Clarity Sl. Cloudy (Clear); Urine Urobilinogen 1 mg/dl (Normal)
[2020-03-10 15:28] LABS: Mucous, Urine 1+ /hpf (<or=2+); Squamous Epithelial Cells - UA 0-5 SEEN /hpf (0-5)
[2020-03-10 15:41] LABS: Absolute Lymphocyte Count 2.33 X10^3/uL (0.83-4.51); Absolute Neutrophil Count 2.5 X10^3/uL (2.0-7.7); Basophil# 0.07 X10^3/uL; Basophil% 1.3 % (0-1); Eosinophil# 0.15 X10^3/uL; Eosinophils% 2.7 % (0-5); Hematocrit 47.3 % (40-54); Hemoglobin 15.2 g/dL (13.0-16.5); Lymphocyte # 2.33 X10^3/ul (4.0); Lymphocyte % 42.3 % (19-41); Mean Corp Hgb Conc 32.1 g/dL (32-36); Mean Corpuscular Hgb 30.5 pg (27.0-32.0); Mean Platelet Vol. 9.2 fl (6.2-12.0); Monocyte# 0.45 X10^3/uL; Monocyte% 8.2 % (0-10); NRBC Flagged by Analyzer 0 % (0-5); Neutrophil # 2.48 X10^3/uL (2.7-7.7); Platelet Count 237 K/mm3 (150-450); RBC Distribution Width CV 14.6 % (11.6-14.6); RBC Distribution Width SD 50.3 fl (35.1-43.9); Red Blood Count 4.98 M/mm3 (4.6-6.2); White Blood Count 5.5 K/mm3 (4.4-11.0)
[2020-03-10 15:42] LABS: Vitamin D,25 Hydroxy 95.7 ng/mL
[2020-03-10 15:49] LABS: ALB/GLOB Ratio 1.1 RATIO (0.9-2.4); AST(SGOT) 17 U/L (15-37); Alanine Aminotransfer ALT/SGPT 30 U/L (16-61); Alkaline Phosphatase 90 U/L (45-117); Anion Gap 3 (5-15); BUN 16 mg/dL (7-18); BUN/Creat Ratio 15.5 RATIO (10-20); Calcium,Total 8.9 mg/dL (8.5-10.1); Chloride 109 mmol/L (98-107); Cholesterol 210 mg/dL (200); Creatinine, Serum 1.03 mg/dL (0.70-1.30); EST Glomerular Filtration Rate 79 mL/min (>60); Est Glom Filt Rate - Afr Amer 95 mL/min (>60); Globulin 3.7 g/dL (2.2-4.2); Glucose 81 mg/dL (74-106); High Density Lipoprotein 38 mg/dL; Potassium 4.6 mmol/L (3.5-5.1); Protein, Total 7.7 g/dL (6.4-8.2); Sodium Level 140 mmol/L (136-145); Triglycerides 240 mg/dL; Very Low Density Lipoprotein 48 mg/dL (5-40)
== END ==
PROVIDERS: PCP Family Medicine; Visit Provider Family Medicine
DX: I10 Essential (primary) hypertension (principal); E55.9 Vitamin D deficiency, unspecified
CPT/HCPCS: 36415; 80053; 80061; 81001; 82306; 85025

== ENCOUNTER → 2020-03-23 06:40 | Outpatient (CLI) | payer OTHER, SELFPAY ==
--- NOTE | 2020-03-23 06:46 | CT_ITS ---
STUDY: LOW DOSE CT LUNG CANCER SCREENING REASON FOR EXAM: Male, 60 years old. LUNG NODULE. EX-SMOKER WITH 38 YEAR 1PPD HISTORY RADIATION DOSAGE (If Supplied By Facility): CTDIvol = ( 4.02 ) mGy, DLP = ( 138.43 ) mGycm TECHNIQUE: No contrast was administered. Low dose technique was utilized (average mAS-38 and kVp 120). 1.25 mm axial source images with a slice interval of 1.25-mm were reconstructed in lung windows. 2.5 mm axial source images with a slice interval of 2.5-mm were reconstructed in lung windows. 5.0 mm axial source images with a slice interval of 5.0-mm were reconstructed in soft tissue windows. Nodule measured using lung windows on PACS and/or independent workstation with automated measurement of minimum and maximum diameter. Nodule measurement reported as average diameter rounded to the nearest whole number. Growth is defined as an increase ins size of greater than 1.5 mm. COMPARISON: Comparison is made with prior examination dated June 26, 2018. NODULES: Stable 6 mm x 7 mm noncalcified nodule in the anterior aspect of the right upper lobe as seen on axial image #148. Stable 4.4 mm nodule in the lateral aspect of the right middle lobe as seen on axial image #168. This is pleural-based. Focal pleural thickening is seen at that site. Stable 4 mm nodular density in the right middle lobe as seen on axial image #155. Emphysema: Mild degree of the scarring at the lung apices. Endobronchial lesion: None Aorta: Mild degree of atherosclerotic calcification of the aortic arch. Coronary arteries: Coronary artery calcification. Mediastinal nodes: Small benign-appearing mediastinal lymph nodes. Other chest and abdominal findings: CT/Low Dose CT Lung Screening IMPRESSION: Lung-RADS category 2 - Continue annual screening with LDCT in 12 months. IMPORTANT NOTES FOR USE: ACR Lung-RADS Version 1.0 Assessment Categories Release Date: January 05, 2014 Category: Coded 0-4 bases on nodule(s) with highest degree of suspicion. Negative screen is defined as categories 1 and 2; a positive screen is defined as categories 3 and 4. Category 3 and 4A nodules that are unchanged on interval CT should be coded as category 2, and individuals returned to screening in 12 months. Category 4X: Category 3 or 4 nodules with additional imaging findings that increase the suspicion of lung cancer, such as spiculation, GGN that doubles in size in 1 year, enlarged lymph notes, etc. Category Modifiers: S (significant finding unrelated to lung cancer) and C (prior history of treated lung cancer) may be added to the 0-4 Lung-RADS Electronically Signed: Kendrick Jacobo, at 13:11 EDT , Service support ,
== END ==
PROVIDERS: PCP Family Medicine; Referring Provider Family Medicine; Visit Provider Family Medicine
DX: R91.1 Solitary pulmonary nodule (principal)
CPT/HCPCS: G0297

== ENCOUNTER → 2020-09-14 09:50 | Outpatient (CLI) | payer OTHER, SELFPAY ==
[2020-09-14 12:41] LABS: ALB/GLOB Ratio 1.1 RATIO (0.9-2.4); AST(SGOT) 15 U/L (15-37); Alanine Aminotransfer ALT/SGPT 27 U/L (16-61); Albumin, Serum 3.8 g/dL (3.2-5.0); Alkaline Phosphatase 105 U/L (45-117); Anion Gap 4 (5-15); BUN 12 mg/dL (7-18); BUN/Creat Ratio 11.8 RATIO (10-20); Calcium,Total 8.7 mg/dL (8.5-10.1); Chloride 107 mmol/L (98-107); Cholesterol 201 mg/dL (200); Creatinine, Serum 1.02 mg/dL (0.70-1.30); EST Glomerular Filtration Rate 79 mL/min (>60); Est Glom Filt Rate - Afr Amer 96 mL/min (>60); Globulin 3.5 g/dL (2.2-4.2); Glucose 73 mg/dL (74-106); High Density Lipoprotein 33 mg/dL; Potassium 4.1 mmol/L (3.5-5.1); Protein, Total 7.3 g/dL (6.4-8.2); Sodium Level 140 mmol/L (136-145); Triglycerides 200 mg/dL; Very Low Density Lipoprotein 40 mg/dL (5-40)
[2020-09-14 12:47] LABS: Vitamin D,25 Hydroxy 52.8 ng/mL
== END ==
PROVIDERS: PCP Family Medicine; Referring Provider Family Medicine; Visit Provider Family Medicine
DX: I10 Essential (primary) hypertension (principal); E55.9 Vitamin D deficiency, unspecified
CPT/HCPCS: 36415; 80053; 80061; 82306

== ENCOUNTER → 2020-09-29 09:13 | Outpatient (CLI) | payer OTHER, SELFPAY ==
[2020-09-29 10:44] LABS: PSA,Total - Annual Screen 1.39 ng/mL (0.00-4.00)
== END ==
PROVIDERS: PCP Family Medicine; Referring Provider Family Medicine; Visit Provider Family Medicine
DX: Z12.5 Encounter for screening for malignant neoplasm of prostate (principal)
CPT/HCPCS: 36415; 84153; G0103

== ENCOUNTER → 2021-03-29 08:46 | Outpatient (CLI) | payer OTHER, SELFPAY ==
[2021-03-29 10:06] LABS: Absolute Lymphocyte Count 2.46 X10^3/uL (0.83-4.51); Absolute Neutrophil Count 2.7 X10^3/uL (2.0-7.7); Basophil# 0.09 X10^3/uL; Basophil% 1.5 % (0-1); Eosinophil# 0.27 X10^3/uL; Eosinophils% 4.4 % (0-5); Hemoglobin 15.2 g/dL (13.0-16.5); Lymphocyte # 2.46 X10^3/ul (0.83-4.51); Lymphocyte % 40.4 % (19-41); Mean Corpuscular Hgb 30.6 pg (27.0-32.0); Mean Corpuscular Volume 92.6 fL (80-94); Mean Platelet Vol. 9.5 fl (6.2-12.0); Monocyte# 0.54 X10^3/uL; Monocyte% 8.9 % (0-10); NRBC Flagged by Analyzer 0 % (0-5); Neutrophil # 2.67 X10^3/uL (2.7-7.7); Neutrophil % 43.8 % (47-70); Platelet Count 243 K/mm3 (150-450); RBC Distribution Width CV 14.1 % (11.6-14.6); RBC Distribution Width SD 47.9 fl (35.1-43.9); Red Blood Count 4.97 M/mm3 (4.6-6.2); White Blood Count 6.1 K/mm3 (4.4-11.0)
[2021-03-29 10:26] LABS: Microalbumin,Random Urine 11.9 mg/L (NO RANGE EST.)
[2021-03-29 10:27] LABS: ALB/GLOB Ratio 1.1 RATIO (0.9-2.4); AST(SGOT) 24 U/L (15-37); Alanine Aminotransfer ALT/SGPT 38 U/L (16-61); Albumin, Serum 3.8 g/dL (3.2-5.0); Alkaline Phosphatase 113 U/L (45-117); Anion Gap 7 (5-15); BUN 10 mg/dL (7-18); BUN/Creat Ratio 9.7 RATIO (10-20); Calcium,Total 8.6 mg/dL (8.5-10.1); Chloride 106 mmol/L (98-107); Creatinine, Serum 1.03 mg/dL (0.70-1.30); EST Glomerular Filtration Rate 78 mL/min (>60); Est Glom Filt Rate - Afr Amer 95 mL/min (>60); Globulin 3.5 g/dL (2.2-4.2); Glucose 67 mg/dL (74-106); Magnesium 2.4 mg/dL (1.6-2.6); Potassium 4.5 mmol/L (3.5-5.1); Protein, Total 7.3 g/dL (6.4-8.2); Sodium Level 141 mmol/L (136-145); Vitamin D,25 Hydroxy 66.9 ng/mL
== END ==
PROVIDERS: PCP Family Medicine; Visit Provider Family Medicine
DX: I10 Essential (primary) hypertension (principal); E55.9 Vitamin D deficiency, unspecified
CPT/HCPCS: 80053; 82043; 82306; 82570; 83735; 84443; 85025

== ENCOUNTER → 2021-04-06 07:19 | Outpatient (CLI) | payer OTHER, SELFPAY ==
--- NOTE | 2021-04-06 07:21 | CT_ITS ---
STUDY: CT CHEST WITHOUT CONTRAST REASON FOR EXAM: Male, 61 years old. History of pulmonary nodule. History of 38 year pack history. RADIATION DOSAGE (If Supplied By Facility): CTDIvol = ( 15.72 ) mGy, DLP = ( 542.97 ) mGycm TECHNIQUE: Transaxial imaging was performed without the administration of intravenous contrast material. Multiplanar coronal and sagittal images were reformatted. Individualized dose optimization techniques were used for this CT. COMPARISON: Comparison is made with prior study dated 03/23/2020. FINDINGS: Stable small benign-appearing bilateral axillary Stable 6 mm x 7 mm noncalcified nodule in the anterior aspect of the right upper lobe as seen on axial image #74. Stable 4.4 mm nodule in the lateral aspect of the right middle lobe as seen on axial image #87. Stable mild degree of scarring at the lung apices and in the lower. There are calcifications of the coronary arteries. There are multiple small lymph nodes within the mediastinum, which are normal in size and morphology most compatible with reactive lymph hyperplasia. Normal hilar regions. Normal unenhanced pulmonary arteries. There is atherosclerotic calcification of the aortic arch . There are multi-level degenerative changes of the thoracic spine. There is no demonstrated abnormality of the visualized upper abdomen. CT/Chest without Contrast IMPRESSION: Stable examination. 12 month follow-up examination is suggested. Electronically Signed: Kendrick Jacobo MD at 13:00 EDT , Service support ,
== END ==
PROVIDERS: PCP Family Medicine; Referring Provider Family Medicine; Visit Provider Family Medicine
DX: R91.1 Solitary pulmonary nodule (principal)
CPT/HCPCS: 71250

== ENCOUNTER 2021-10-04 09:38 | Outpatient (CLI) | payer OTHER, SELFPAY ==
[2021-10-04 09:43] LABS: Bacteria 0 SEEN /hpf (None Seen); Red Blood Cells-Urine 0 SEEN /hpf (0-5); White Blood Cells 0 SEEN /hpf (0-5)
[2021-10-04 12:16] LABS: Absolute Lymphocyte Count 2.05 X10^3/uL (0.83-4.51); Absolute Neutrophil Count 3.5 X10^3/uL (2.0-7.7); Basophil# 0.07 X10^3/uL; Basophil% 1.1 % (0-1); Eosinophil# 0.16 X10^3/uL; Eosinophils% 2.5 % (0-5); Hematocrit 46.9 % (40-54); Hemoglobin 15.2 g/dL (13.0-16.5); Lymphocyte # 2.05 X10^3/ul (0.83-4.51); Lymphocyte % 32.2 % (19-41); Mean Corp Hgb Conc 32.4 g/dL (32-36); Mean Corpuscular Hgb 30.2 pg (27.0-32.0); Mean Corpuscular Volume 93.2 fL (80-94); Monocyte# 0.55 X10^3/uL; Monocyte% 8.6 % (0-10); NRBC Flagged by Analyzer 0 % (0-5); Neutrophil # 3.51 X10^3/uL (2.7-7.7); Neutrophil % 55.1 % (47-70); Platelet Count 228 K/mm3 (150-450); RBC Distribution Width CV 14.4 % (11.6-14.6); RBC Distribution Width SD 49.1 fl (35.1-43.9); Red Blood Count 5.03 M/mm3 (4.6-6.2); White Blood Count 6.4 K/mm3 (4.4-11.0)
[2021-10-04 12:30] LABS: Vitamin D,25 Hydroxy 78.8 ng/mL
[2021-10-04 12:42] LABS: Color, Urine Yellow (Yellow); Glucose, Dipstick Normal (Normal); Ketone-Dipstick Negative (Negative); Leukocyte Esterase-Dipstick Negative /ul (Negative); Nitrite-Dipstick Negative (Negative); Occult Blood-Urine Negative /ul (Negative); Protein-Dipstick 15 mg/dl (Negative); Urine Bilirubin Dipstick Negative (Negative); Urine Clarity Sl. Cloudy (Clear); Urine Urobilinogen Normal (Normal)
[2021-10-04 12:44] LABS: AST(SGOT) 22 U/L (15-37); Alanine Aminotransfer ALT/SGPT 31 U/L (16-61); Albumin, Serum 3.8 g/dL (3.2-5.0); Alkaline Phosphatase 96 U/L (45-117); Anion Gap 6 (5-15); BUN 13 mg/dL (7-18); BUN/Creat Ratio 13.7 RATIO (10-20); Chloride 107 mmol/L (98-107); Creatinine, Serum 0.95 mg/dL (0.70-1.30); EST Glomerular Filtration Rate 86 mL/min (>60); Est Glom Filt Rate - Afr Amer 104 mL/min (>60); Globulin 3.8 g/dL (2.2-4.2); Glucose 73 mg/dL (74-106); PSA,Total - Annual Screen 1.25 ng/mL (0.00-4.00); Potassium 3.8 mmol/L (3.5-5.1); Protein, Total 7.6 g/dL (6.4-8.2); Sodium Level 141 mmol/L (136-145)
[2021-10-04 12:49] LABS: Mucous, Urine 1+ /hpf (<or=2+); Squamous Epithelial Cells - UA 0-5 SEEN /hpf (0-5)
== END 2021-10-04 23:59 | disposition short-term general hospital (02) ==
LOC: MTLAB 09:39
PROVIDERS: PCP Family Medicine; Referring Provider Family Medicine; Visit Provider Family Medicine
DX: I10 Essential (primary) hypertension (principal); E55.9 Vitamin D deficiency, unspecified; Z12.5 Encounter for screening for malignant neoplasm of prostate
CPT/HCPCS: 36415; 80053; 81001; 82306; 84153; 85025; G0103

== ENCOUNTER → 2023-02-13 | Outpatient (CLI) | payer OTHER, SELFPAY ==
[2023-02-13 11:57] LABS: Bacteria 0 SEEN /hpf (None Seen); Mucous, Urine 0 SEEN /hpf (<or=2+); Red Blood Cells-Urine 0 SEEN /hpf (0-5); White Blood Cells 0 SEEN /hpf (0-5)
[2023-02-13 14:57] LABS: Color, Urine Yellow (Yellow); Glucose, Dipstick Normal (Normal); Ketone-Dipstick Negative (Negative); Leukocyte Esterase-Dipstick Negative /ul (Negative); Nitrite-Dipstick Negative (Negative); Occult Blood-Urine Negative /ul (Negative); Protein-Dipstick Negative (Negative); Specific Gravity, Urine 1.015 (1.002-1.030); Urine Bilirubin Dipstick Negative (Negative); Urine Clarity Clear (Clear); Urine Urobilinogen 4 mg/dl (Normal)
[2023-02-13 15:01] LABS: Absolute Lymphocyte Count 2.98 X10^3/uL (0.83-4.51); Absolute Neutrophil Count 2.4 X10^3/uL (2.0-7.7); Basophil# 0.09 X10^3/uL; Basophil% 1.4 % (0-1); Eosinophil# 0.23 X10^3/uL; Eosinophils% 3.7 % (0-5); Hematocrit 46.8 % (40-54); Hemoglobin 15.4 g/dL (13.0-16.5); Lymphocyte # 2.98 X10^3/ul (0.83-4.51); Lymphocyte % 47.6 % (19-41); Mean Corp Hgb Conc 32.9 g/dL (32-36); Mean Corpuscular Volume 94.2 fL (80-94); Monocyte# 0.57 X10^3/uL; Monocyte% 9.1 % (0-10); NRBC Flagged by Analyzer 0 % (0-5); Neutrophil # 2.37 X10^3/uL (2.7-7.7); Neutrophil % 37.9 % (47-70); Platelet Count 241 K/mm3 (150-450); RBC Distribution Width CV 14.1 % (11.6-14.6); RBC Distribution Width SD 48.4 fl (35.1-43.9); Red Blood Count 4.97 M/mm3 (4.6-6.2); White Blood Count 6.3 K/mm3 (4.4-11.0)
[2023-02-13 15:09] LABS: Calcium Oxalate Crystals Ur 1+ /hpf (<or=2+); Squamous Epithelial Cells - UA 0-5 SEEN /hpf (0-5)
[2023-02-13 15:27] LABS: Vitamin D,25 Hydroxy 78.7 ng/mL
[2023-02-13 15:37] LABS: ALB/GLOB Ratio 1.1 RATIO (0.9-2.4); AST(SGOT) 24 U/L (15-37); Alanine Aminotransfer ALT/SGPT 29 U/L (16-61); Albumin, Serum 3.6 g/dL (3.2-5.0); Alkaline Phosphatase 102 U/L (45-117); Anion Gap 4 (5-15); BUN 13 mg/dL (7-18); BUN/Creat Ratio 14.6 RATIO (10-20); Calcium,Total 8.5 mg/dL (8.5-10.1); Chloride 109 mmol/L (98-107); Cholesterol 181 mg/dL (200); Creatinine, Serum 0.89 mg/dL (0.70-1.30); EST Glomerular Filtration Rate 92 mL/min (>60); Est Glom Filt Rate - Afr Amer 112 mL/min (>60); Globulin 3.4 g/dL (2.2-4.2); Glucose 80 mg/dL (74-106); High Density Lipoprotein 33 mg/dL; PSA,Total - Annual Screen 1.62 ng/mL (0.00-4.00); Potassium 4.4 mmol/L (3.5-5.1); Sodium Level 140 mmol/L (136-145); Triglycerides 398 mg/dL; Very Low Density Lipoprotein 80 mg/dL (5-40)
== END | disposition home or self-care (01) ==
LOC: MFPLAB 11:47
PROVIDERS: PCP Family Medicine; Visit Provider Family Medicine
DX: I10 Essential (primary) hypertension (principal); E55.9 Vitamin D deficiency, unspecified
CPT/HCPCS: 36415; 80053; 80061; 81001; 82306; 84153; 84443; 85025; G0103

== ENCOUNTER → 2023-02-23 | Outpatient (CLI) | payer OTHER, SELFPAY ==
--- NOTE | 2023-02-23 07:13 | CT_ITS ---
INDICATION: Nodule EXAMINATION: CT CHEST WITHOUT CONTRAST - CT Chest W/O Contrast Injection TECHNIQUE: Helically acquired images were obtained of the chest. A radiation dose optimization technique was used for this scan. IV Contrast dosage and agent: None. RADIATION DOSAGE (If Supplied By Facility): CTDIvol = ( 15.38 ) mGy, DLP = ( 565.01 ) mGycm COMPARISON: 06/26/2018, 03/29/2021 FINDINGS: LUNGS, PLEURA AND LARGE AIRWAYS: 7 mm lateral right lower lobe subpleural nodule (series 4, image 90) not significantly changed compared to 06/26/2018 or 03/29/2021, given slice variation and differences in technique. Bilateral lung base scarring/atelectasis increased compared to 03/29/2021. No pleural effusion or thickening. No pneumothorax. THYROID: No thyroid lesions. HEART AND PERICARDIUM: Heart size is normal. No pericardial effusion. CORONARY ARTERIES: Coronary artery calcification is seen. VESSELS: Thoracic aorta is not dilated. MEDIASTINUM AND NHI: No mediastinal or hilar adenopathy. Esophagus is unremarkable. No hiatal hernia. UPPER ABDOMEN: No acute pathology. BONES: Thoracic spine degenerative change. CT/Chest without Contrast IMPRESSION: No significant change in 6-7 mm right lower lobe subpleural nodule. No new lung nodule. Increased bibasilar scarring/atelectasis. Electronically Signed: Brayden Patel MD at 17:07 EDT ,
== END | disposition home or self-care (01) ==
PROVIDERS: PCP Family Medicine; Referring Provider Family Medicine; Visit Provider Family Medicine
DX: R91.1 Solitary pulmonary nodule (principal)
CPT/HCPCS: 71250

== ENCOUNTER → 2023-12-06 | Outpatient (CLI) | payer OTHER, SELFPAY ==
[2023-12-06 08:22] LABS: Bacteria 0 SEEN /hpf (None Seen); Mucous, Urine 0 SEEN /hpf (<or=2+); Red Blood Cells-Urine 0 SEEN /hpf (0-5); Squamous Epithelial Cells - UA 0 SEEN /hpf (0-5)
[2023-12-06 09:57] LABS: Absolute Lymphocyte Count 2.38 X10^3/uL (0.83-4.51); Absolute Neutrophil Count 3.3 X10^3/uL (2.0-7.7); Basophil# 0.11 X10^3/uL; Basophil% 1.7 % (0-1); Eosinophil# 0.22 X10^3/uL; Eosinophils% 3.4 % (0-5); Hematocrit 46.1 % (40-54); Hemoglobin 15.1 g/dL (13.0-16.5); Lymphocyte # 2.38 X10^3/ul (0.83-4.51); Lymphocyte % 36.3 % (19-41); Mean Corp Hgb Conc 32.8 g/dL (32-36); Mean Corpuscular Hgb 30.3 pg (27.0-32.0); Mean Corpuscular Volume 92.4 fL (80-94); Mean Platelet Vol. 10.2 fl (6.2-12.0); Monocyte# 0.58 X10^3/uL; Monocyte% 8.8 % (0-10); NRBC Flagged by Analyzer 0 % (0-5); Neutrophil # 3.25 X10^3/uL (2.7-7.7); Neutrophil % 49.5 % (47-70); Platelet Count 231 K/mm3 (150-450); RBC Distribution Width CV 14.2 % (11.6-14.6); RBC Distribution Width SD 48.2 fl (35.1-43.9); Red Blood Count 4.99 M/mm3 (4.6-6.2); White Blood Count 6.6 K/mm3 (4.4-11.0)
[2023-12-06 09:58] LABS: Color, Urine Yellow (Yellow); Glucose, Dipstick Normal (Normal); Ketone-Dipstick 5 mg/dl (Negative); Leukocyte Esterase-Dipstick 25 /ul (Negative); Nitrite-Dipstick Negative (Negative); Occult Blood-Urine Negative /ul (Negative); Protein-Dipstick 15 mg/dl (Negative); Specific Gravity, Urine 1.025 (1.002-1.030); Urine Bilirubin Dipstick Negative (Negative); Urine Clarity Sl. Cloudy (Clear); Urine Urobilinogen 1 mg/dl (Normal)
[2023-12-06 10:18] LABS: White Blood Cells 0-5 SEEN /hpf (0-5)
[2023-12-06 10:23] LABS: Vitamin D,25 Hydroxy 81.2 ng/mL
[2023-12-06 10:40] LABS: AST(SGOT) 22 U/L (15-37); Alanine Aminotransfer ALT/SGPT 28 U/L (16-61); Albumin, Serum 3.6 g/dL (3.2-5.0); Alkaline Phosphatase 96 U/L (45-117); Anion Gap 5 (5-15); BUN 13 mg/dL (7-18); BUN/Creat Ratio 12.6 RATIO (10-20); Calcium,Total 8.9 mg/dL (8.5-10.1); Chloride 107 mmol/L (98-107); Cholesterol 172 mg/dL (200); Creatinine, Serum 1.03 mg/dL (0.70-1.30); EST Glomerular Filtration Rate 78 mL/min (>60); Est Glom Filt Rate - Afr Amer 94 mL/min (>60); Globulin 3.7 g/dL (2.2-4.2); Glucose 87 mg/dL (74-106); High Density Lipoprotein 33 mg/dL; Magnesium 2.3 mg/dL (1.6-2.6); Potassium 4.1 mmol/L (3.5-5.1); Protein, Total 7.3 g/dL (6.4-8.2); Sodium Level 139 mmol/L (136-145); Triglycerides 215 mg/dL; Very Low Density Lipoprotein 43 mg/dL (5-40)
== END | disposition home or self-care (01) ==
LOC: MFPLAB 08:21
PROVIDERS: PCP Family Medicine; Visit Provider Family Medicine
DX: I10 Essential (primary) hypertension (principal); E55.9 Vitamin D deficiency, unspecified
CPT/HCPCS: 36415; 80053; 80061; 81001; 82306; 83735; 84443; 85025

== ENCOUNTER → 2024-02-28 | Outpatient (CLI) | payer OTHER, SELFPAY ==
--- NOTE | 2024-02-28 | CYSPIN_PTH ---
PATIENT: KERMIT IGNACIO LOC: [facility] U#:[id number] AGE/SX: 64/M ROOM: RE02/28/[address]: Dr. Shay Olvera MD : 1960 BED: DIS: 02/28/2024 SPEC #: [id number] RECD: 02/28/24 13:34 STATUS: JUAN JOLLEY #: [id number] TIFFANI: 02/28/24 00:[address]: Shay Olvera DEPT: CYTOLOGY RECD BY: Gary De La Rosa Tissues: Urine Procedures: Pap Stain (control) Special Stain Group II Cytospin Fluid HEADER OPERATION: Not noted PRE-OP DIAGNOSIS: Hematuria TISSUE SUBMITTED: Urine for cytology DIAGNOSIS CYTOLOGY Urine for cytology (cytospin): Negative for high grade urothelial carcinoma (Aida Category System II). See comment. GIL/ 02/29/2024 COMMENT The Aida System for urine cytology diagnostic categorization was used in the evaluation of this case. CYTOLOGY STUDY Slides are reviewed. CYTOLOGY GROSS Received is 20 ml of dark-gold cloudy fluid labeled with the patient's name and and designated per the requisition as urine. Submitted for cytology preparation. Mr 02/28/2024 TC:5 CPT: 07697
[2024-02-28 10:07] LABS: Cytology, Body Fluid / CSF SEE PATHOLOGY REPORT
[2024-02-28 10:09] LABS: Red Blood Cells-Urine 0 SEEN /hpf (0-5)
[2024-02-28 12:39] LABS: Color, Urine Yellow (Yellow); Glucose, Dipstick Normal (Normal); Ketone-Dipstick Negative (Negative); Leukocyte Esterase-Dipstick 25 /ul (Negative); Nitrite-Dipstick Negative (Negative); Occult Blood-Urine Negative /ul (Negative); Protein-Dipstick Negative (Negative); Urine Bilirubin Dipstick Negative (Negative); Urine Clarity Clear (Clear); Urine Urobilinogen 1 mg/dl (Normal)
[2024-02-28 12:50] LABS: Mucous, Urine 1+ /hpf (<or=2+); Squamous Epithelial Cells - UA 0-5 SEEN /hpf (0-5)
[2024-02-28 12:51] LABS: Bacteria 1+ /hpf (None Seen); White Blood Cells 0-5 SEEN /hpf (0-5)
[2024-02-28 13:11] LABS: PSA,Total - Annual Screen 1.86 ng/mL (0.00-4.00)
== END | disposition home or self-care (01) ==
LOC: MFPLAB 10:06
PROVIDERS: PCP Family Medicine; Visit Provider Family Medicine
DX: Z12.5 Encounter for screening for malignant neoplasm of prostate (principal); R31.9 Hematuria, unspecified
CPT/HCPCS: 81001; 84153; 87086; 87088; 88108; 88313; G0103

== ENCOUNTER → 2024-03-14 | Outpatient (CLI) | payer OTHER, SELFPAY ==
--- NOTE | 2024-03-14 07:17 | CT_ITS ---
INDICATION: nodule, history of smoking EXAMINATION: CT CHEST WITHOUT CONTRAST - CT Chest W/O Contrast Injection TECHNIQUE: Helically acquired images were obtained of the chest. A radiation dose optimization technique was used for this scan. IV Contrast dosage and agent: None. COMPARISON: 02/23/2023 FINDINGS: LUNGS, PLEURA AND LARGE AIRWAYS: Mild bilateral apical scarring. No change in the 6 mm noncalcified subpleural right lower lobe of the lungs on image 98 consistent with a noncalcified granuloma or scar. This is unchanged dating back to 2018 consistent with a benign etiology requiring no further follow-up. No pleural effusion or thickening. No pneumothorax. THYROID: No thyroid lesions. HEART AND PERICARDIUM: Heart size is normal. No pericardial effusion. CORONARY ARTERIES: Coronary artery calcification is seen. VESSELS: Thoracic aorta is not dilated. MEDIASTINUM AND NHI: No mediastinal or hilar adenopathy. Esophagus is unremarkable. No hiatal hernia. UPPER ABDOMEN: No acute pathology. BONES: Mild dextroscoliosis lower thoracic spine with degenerative disc disease. CT/Chest without Contrast IMPRESSION: Negative CT chest without contrast. Electronically Signed: Grabiel Riley MD at 13:23 EDT ,
== END | disposition home or self-care (01) ==
LOC: CT 07:15
PROVIDERS: PCP Family Medicine; Referring Provider Family Medicine; Visit Provider Family Medicine
DX: R91.1 Solitary pulmonary nodule (principal)
CPT/HCPCS: 71250

== ENCOUNTER 2025-03-03 09:01 | Outpatient (CLI) | payer OTHER, SELFPAY ==
[2025-03-03 10:51] LABS: PSA,Total - Annual Screen 2.06 ng/mL (0.02-4.00); Vitamin D,25 Hydroxy 74.3 ng/mL (30-100)
--- OUTSIDE RECORDS SUMMARY | 2025-03-03 20:07 | XMS RPT_ITS | CCD ---
Author Organization [facility] Care Team Providers Care Television Specialist Name Role Phone Genna Goldman Unavailable Unavailable Fast, Harika A Unavailable Unavailable Genna Goldman Unavailable Unavailable Genna Goldman Unavailable Marc Ruiz Unavailable Guzman Aaron Unavailable Chad Muse Unavailable [phone] Jimmie Castillo Unavailable Keiry Renae Unavailable Unavailable Fast, Harika A Unavailable Unavailable Unavailable Caitlyn Goldmanhleen Unavailable Marc Ruiz Unavailable Guzman Aaron Unavailable Chad Muse Unavailable Jimmie Castillo Unavailable Piyush Jauregui Unavailable Sunshine Martinez Unavailable Unavailable Fast, Harika A Unavailable Unavailable Unavailable Shay Olvera Primary Care Provider [phone] Jose Enrique Hernández Primary Care Provider [phone] Shay Olvera Primary Care Unavailable Shay Olvera Attending Unavailable Shay Olvera Primary Care Unavailable Shay Olvera Attending Unavailable Shay Olvera Referring Unavailable Shay Olvera Attending Unavailable Shay Olvera Primary Care Unavailable Medications Current Medications Medication Drug Class(es) Dates Sig (Normalized) Sig (Original) acetaminophen 500 mg oral tablet (1 source) take 1 tablet by mouth every six hours as needed for pain acetaminophen (TYLENOL) 500 MG tablet Take 500 mg by mouth every 6 hours as needed for Pain 0 Active aspirin 325 mg oral tablet (5 sources) Platelet Aggregation Inhibitor, Nonsteroidal Anti-inflammatory Drug Start: 05-26-2019 take 325 mg by mouth once daily Aspirin Active 325 MG PO DAILY May 26, 2019 12:00am Start: 05-10-2007 take 1 tablet by naz th once daily aspirin, enteric coated 325 mg ORAL TbEC Take one(1) tablet two(2) times daily. 0 05/10/2007 Active take 1 tablet by naz th once daily aspirin 81 MG EC tablet Take 81 mg by mouth daily 0 Active Comment on above: Take one(1) tablet t wo(2) times daily. lisinopril 10 mg oral tablet (1 source) Angiotensin Converting Enzyme Inhibitor take 1 tablet by mouth once daily lisinopril (PRINIVIL;ZESTRIL) 10 MG tablet Take 10 mg by mouth daily 0 Active Completed/Discontinued Medications Medication Drug Class(es) Dates Sig (Normalized) Sig (Original) acyclovir 0.05 mg/mg topical ointment (7 sources) Herpesvirus Nucleoside Analog DNA Polymerase Inhibitor, Herpes Simplex Virus Nucleoside Analog DNA Polymerase Inhibitor, Herpes Zoster Virus Nucleoside Analog DNA Polymerase Inhibitor Start: 01-05-2016 End: 06-14-2018 Zovirax 5 % External Ointment apply to lesions Ointment tid, prn for 0 days Quantity: 1 {Tube} Refills: 1 Ordered: 14-Jun-2018 Heather Rogers LPN Start : 05-Jan-2016 End : 14-Jun-2018 Inactive Start: 2011 acyclovir (ZOV IRAX) 5 % TOPICAL ointment Indications: HSV infection Apply 1 application to affected area five times daily. 5 g 5 2011 Active Comment on above: Apply 1 application to affected area five times daily. amoxicillin 875 mg oral tablet (7 sources) Penicillin-class Antibacterial Start: 12-29-19 11 End: 09-21-19 15 take 1 tablet by mouth twice daily Amoxicillin 875 mg ORAL tablet Indications: Sinusitis , TMJ dysfunction Take 1 tablet by mouth twice daily. 20 tablet 0 12/28/2010 Active Comment on above: Take 1 tablet by naz th twice daily. amoxicillin 875 mg / clavulanate 125 mg oral tablet (5 sources) Penicillin-class Antibacterial Start: 09-21-19 15 End: 03-31-20 15 take 1 tablet by mouth twice daily AUGMENTIN, 875-125MG (Oral Tablet) 1 Tablet bid for 0 days Quantity: 20 {Tablet} Refills: 0 Ordered: 31-Mar-2015 Morenaike Aileen Start : 21-Sep-2014 End : 31-Mar-2015 Discontinued benzonatate 200 mg oral capsule (2 sources) Non-narcotic Antitussive Start: 12-29-19 11 take 1 capsule by mouth three times daily for cough Benzonatate (TESSALON) 200 mg ORAL capsule Take by mouth. ONE (1) CAPSULE THREE (3) TIMES DAILY FOR COUGH 30 capsule 1 12/28/2010 Active Comment on above: Take by mouth. ONE ( 1) CAPSULE THREE (3) TIMES DAILY FOR COUGH augmented betamethasone 0.5 mg/ml topical cream (7 sources) Corticosteroid Start: 01-05-20 16 End: 06-14-20 18 Betamethasone Dipropionate Aug 0.05 % External Cream apply to lesions Cream qd, prn for 0 days Quantity: 60 {Tube} Refills: 1 Ordered: 14-Jun-2018 Heather Rogers LPN Start : 05-Jan-2016 End : 14-Jun-2018 Inactive Start: 2011 betamethasone dipropionate 0.05 % TOPICAL cream Indications: Dermatitis Apply 1 application to affected area twice daily. 45 g 5 2011 Active Comment on above: Apply 1 application to affected area twice daily. cholecalciferol 2000 unt chewable tablet (6 sources) Vitamin D Start: 3 End: 8 take 2 tablets by mouth once daily Vitamin D3 2000 UNIT Oral Tablet Chewable 2 (two) Tablet Chewable Tablet Chewable pills a day for 0 days Quantity: 60 {Tablet_Chewable} Refills: 0 Ordered: 14-Jun-2018 Heather Rogers LPN Start : 01-Sep-2013 End : 14-Jun-2018 Inactive Cholecalciferol (VITAMIN D3) 1.25 MG (37549 UT) CAPS Take by mouth 0 Active clindamycin 150 mg oral capsule (2 sources) Lincosamide Antibacterial Start: 2011 take 1 capsule by mouth three times daily clindamycin 150 mg ORAL capsule Take 1 capsule by mouth three times daily. 30 capsule 0 2011 Active Comment on above: Take 1 capsule by [facility] three times daily. doxycycline hyclate 100 mg oral capsule (5 sources) Tetracycline-clas s Drug Start: 01-19-2014 End: 03-23-2014 take 1 capsule by mouth twice daily DOXYCYCLINE HYCLATE, 100MG (Oral Capsule) 1 (one) Capsule bid for 0 days Quantity: 20 {Capsule} Refills: 0 Ordered: 23-Mar-2014 Aileen Griffin Start : 19-Jan-2014 End : 23-Mar-2014 Discontinued 12 hr guaiFENesin 1200 mg / pseudoephedrine hydrochloride 120 mg extended release oral tablet (2 sources) alpha-Adrenergic Agonist Start: 12-28-2010 take 1 tablet by mouth every twelve hours as needed for congestion Pseudoephedrine- Guaifenesin 120-1,200 mg ORAL Tb12 Indications: Sinusitis , TMJ dysfunction Take 1 tablet by mouth every 12 hours as needed ( FOR SINUS CONGESTION). FOR SINUS COGESTION 20 tablet 0 12/28/2010 Active Comment on above: Take 1 tablet by naz every 12 hours as needed ( FOR SINUS CONGESTION). FOR SINUS COGESTION hydroCHLOROthiazide 25 mg / lisinopril 20 mg oral tablet (7 sources) Thiazide Diuretic, Angiotensin Converting Enzyme Inhibitor Start: 01-05-2016 End: 06-14-2018 take 1 tablet by mouth once at bedtime Lisinopril-[place] chlorothiazide 20-25 MG Oral Tablet 1 (one) Tablet q hs for 0 days Quantity: 30 {Tablet} Refills: 3 Ordered: 14-Jun-2018 Heather Rogers LPN Start : 05-Jan-2016 End : 14-Jun-2018 Inactive Start: 2011 take 1 tablet by naz once daily lisinopril-hydrochlorothiazide 20-25 mg ORAL per tablet Indications: Essential hypertension, malignant Take 1 tablet by mouth once daily. 30 tablet 11 2011 Active Comment on above: Take 1 tablet by naz once daily. hydrocortisone acetate 25 mg rectal suppository (12 sources) Corticosteroid Start: 01-05-2016 End: 06-14-2018 Hydrocortisone Acetate 25 MG Rectal Suppository 1 suppository Suppository q hs, rectally, prn for 30 days Quantity: 30 {Suppository} Refills: 1 Ordered: 14-Jun-2018 Heather Rogers SUSU Start : 05-Jan-2016 End : 14-Jun-2018 Inactive Start: 01-05-2016 End: 06-14-2018 Hydrocortisone Valerate 0.2 % External Cream 1 (one) Cream Cream apply bid for 0 days Quantity: 60 {Gram} Refills: 1 Ordered: 14-Jun-2018 Heather Rogers SUSU Start : 05-Jan-2016 End : 14-Jun-2018 Inactive Start: 2011 take 25 mg rectal [place] every twelve hours as needed hydrocortisone (ANUSOL-HC) 25 mg RECTAL suppository 1 Suppository by RECTAL route twice daily as needed. 20 Suppository 5 2011 Active Comment on above: 1 Suppository by REC MARGARITO route twice daily as needed. mometasone furoate 0.05 mg/actuat metered dose nasal spray (5 sources) Corticosteroid Start: 10-09-2012 End: 11-24-2013 NASONEX, 50MCG/ACT (Nasal Suspension) 2 (two) Suspension puffs each nostril q am for 0 days Quantity: 1 {Suspension} Refills: 1 Ordered: 24-Nov-2013 Aileen Griffin Start : 09-Oct-2012 End : 24-Nov-2013 Inactive Start: 10-09-2012 End: 11-24-2013 take 2 puff(s) nasal route once in the morning NASONEX, 50MCG/ACT (Nasal Suspension) 2 (two) Suspension puffs each nostril q am for 0 days Quantity: 1 {Suspension} Refills: 1 Ordered: 24-Nov-2013 Aileen Griffin Start : 09-Oct-2012 End : 24-Nov-2013 Inactive Probiotic (1 source) Start: 08-14-2014 End: 08-19-2014 take 1 tablet by mouth once daily PROBIOTIC (Oral Tablet Delayed Release) 1 (one) Tablet DR qd 2 hours after atb for 0 days Quantity: 10 {Tablet} Refills: 0 Ordered: 19-Aug-2014 Aileen Griffin Start : 14-Aug-2014 End : 19-Aug-2014 Discontinued PROBIOTIC (Oral Tablet Delayed Release) (4 sources) Start: 08-14-2014 End: 08-19-2014 take 1 tablet by mouth once daily PROBIOTIC (Oral Tablet Delayed Release) 1 (one) Tablet DR qd 2 hours after atb for 0 days Quantity: 10 {Tablet} Refills: 0 Ordered: 19-Aug-2014 Aileen Griffin Start : 14-Aug-2014 End : 19-Aug-2014 Discontinued sulfamethoxazole 800 mg / trimethoprim 160 mg oral tablet (2 sources) Dihydrofolate Reductase Inhibitor Antibacterial, Sulfonamide Antimicrobial Start: 2011 take 1 tablet by mouth twice daily sulfamethoxazole -trimethoprim (BACTRIM DS) 800-160 mg ORAL per tablet Take 1 tablet by mouth twice daily. 20 tablet 0 2011 Active Comment on above: Take 1 tablet by naz twice daily. tadalafil 10 mg oral tablet (5 sources) Phosphodiesterase 5 Inhibitor Start: 03-31-2015 End: 06-14-2018 Cialis 10 MG Oral Tablet 1 (one) Tablet Tablet q 72 hours for 0 days Quantity: 10 {Tablet} Refills: 0 Ordered: 14-Jun-2018 Heather Rogers LPN Start : 31-Mar-2015 End : 14-Jun-2018 Inactive NEGATED: Highlighted row has not occurred!drug or medication (5 sources) No Known Historical Medications Problems Active Problems Problem Classification Problem Date Documented Date Episodic/Chronic Abdominal hernia (4 sources) Umbilical hernia; Translations: [Umbilical hernia without obstruction or gangrene] 07-01-2019 Episodic Abdominal pain (2 sources) Right inguinal pain; Translations: [Right lower quadrant pain] 05-26-2019 Episodic Allergic reactions (12 sources) Dermatitis; Translations: [Eczema] Resolved: 4 08-11-2014 Episodic Aortic; peripheral; and visceral artery aneurysms (3 sources) Aneurysm of artery of lower extremity; 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 Comment on above: s/p repair- Chronic obstructive pulmonary disease and bronchiectasis (15 sources) Chronic obstructive lung disease; Translations: [Chronic obstructive airway disease] 09-02-2018 Chronic Disorders of lipid metabolism (20 sources) Other hyperlipidemia; Translations: [Hyperlipidemia] 09-02-2018 Chronic Comment on above: pt declined medsTG i nfluenced by beer indigestion Essential hypertension (8 sources) Benign hypertension; Translations: [Hypertensive disorder] Onset: 4 09-02-2018 Chronic Genitourinary symptoms and ill-defined conditions (20 sources) Blood in urine; Translations: [Hematuria] Resolved: 8 06-14-2018 Episodic Comment on above: had ct and scope scr een with renal us 5 years Hemorrhoids (15 sources) Hemorrhoids; Translations: [Hemorrhoids] Resolved: 8 06-14-2018 Episodic Malaise and fatigue (20 sources) Fatigue; Translations: [Fatigue] Resolved: 8 06-14-2018 Episodic Comment on above: in genral better Nonspecific chest pain (15 sources) Chest pain; Translations: [CHEST PAIN] Resolved: 4 06-14-2018 Episodic Nutritional deficiencies (20 sources) Vitamin D deficiency; Translations: [VITAMIN D DEFICIENCY] 09-02-2018 Chronic Comment on above: increase 4K daily Other and unspecified benign neoplasm (5 sources) Polyp of colon; Translations: [Colon Polyp] 09-02-2018 Episodic Comment on above: 08/27 jabour - 3poly ps and resected Other circulatory disease (2 sources) History of thrombophlebitis; Translations: [Personal history of other diseases of the circulatory system] 07-15-2019 Episodic Other connective tissue disease (2 sources) Swelling of lower limb; Translations: [Other specified soft tissue disorders] 07-15-2019 Episodic Other diseases of veins and lymphatics (2 sources) Postthrombotic syndrome; Translations: [Postthrombotic syndrome with inflammation of unspecified lower extremity] 07-15-2019 Chronic Other diseases of veins and lymphatics (2 sources) Vascular insufficiency; Translations: [Venous insufficiency (chronic) (peripheral)] 07-15-2019 Episodic Other endocrine disorders (12 sources) Hypoglycemia; Translations: [Hypoglycemia, unspecified] Onset: 7 09-02-2018 Chronic Comment on above: discussed glycemic i ndex and small freq high protein meals Other lower respiratory disease (5 sources) Lung mass; Translations: [Nodule of right lung] 09-02-2018 Episodic Comment on above: low dose cat scan - still category 2-no signif interval chg( 2018) Other lower respiratory disease (1 source) Solitary pulmonary nodule; Translations: [Solitary pulmonary nodule] Onset: 4 Episodic Other male genital disorders (6 sources) Impotence of organic origin; Translations: [Impotence] 09-02-2018 Chronic Other male genital disorders (4 sources) Impotence; Translations: [Erectile Dysfunction] 04-28-2019 Chronic Other nutritional; endocrine; and metabolic disorders (1 source) Metabolic syndrome; Translations: [Insulin resistance] 09-02-2018 Chronic Other nutritional; endocrine; and metabolic disorders (5 sources) Body mass index 30+ - obesity; Translations: [BMI 30.0-30.9,adult] 09-02-2018 Chronic Other screening for suspected conditions (not mental disorders or infectious disease) (6 sources) Blood chemistry abnormal; Translations: [Encounter for screening for malignant neoplasm of prostate] Onset: 4 09-02-2018 Episodic Other skin disorders (5 sources) Eruption; Translations: [Rash] 09-02-2018 Episodic Comment on above: pt never went to [facility] -- using witch manoj adn moisuizor and strieod creamand keeping it at bay -- doesnt want tosee derm Other upper respiratory infections (20 sources) Acute pharyngitis; Translations: [Acute sinusitis] Resolved: 6 01-05-2016 Episodic Peripheral and visceral atherosclerosis (1 source) Atherosclerosis of [place] arteries of the extremities; Translations: [Atherosclerosis of [place] arteries of extremities with intermittent claudication, left leg (HCC)] Chronic Residual codes; unclassified (5 sources) Tobacco user; Translations: [Continuous tobacco abuse] 09-02-2018 Chronic Residual codes; unclassified (2 sources) Edema of lower extremity; Translations: [Localized edema] 07-15-2019 Episodic Spondylosis; intervertebral disc disorders; other back problems (2 sources) Disorder of lumbar disc; Translations: [Unspecified thoracic, thoracolumbar and lumbosacral intervertebral disc disorder] 07-01-2019 Chronic Substance-related disorders (10 sources) Smoker; Translations: [Smoker] 02-03-2016 Chronic Comment on above: need to work on etoh and smoking cessation Unclassified (15 sources) Chronic obstructive airway disease Unclassified (5 sources) Hyperlipemia Unclassified (20 sources) Hypertension,benign(401 .1) Unclassified (10 sources) Tendonitis of elbow or forearm (727.09) Unclassified (20 sources) Abnormal blood chemistry (790.6) Unclassified (10 sources) Tick bite, infected Unclassified (20 sources) Unclassified (15 sources) Influenza vaccination declined; Translations: [Influenza vaccination declined (Renamed from Refused influenza vaccine)] 09-02-2018 Unclassified (20 sources) Hypertriglycerides (272.1) Unclassified (10 sources) SCREENING FOR CANCER OF THE PROSTATE (V76.44) Unclassified (15 sources) Non-smoker; Translations: [Non-smoker] 09-02-2018 Comment on above: h/o 1pack day for 30 yrs Unclassified (10 sources) BMI 30.0-30.9,adult Unclassified (20 sources) Nodule of right lung Unclassified (20 sources) Colon Polyp Unclassified (10 sources) Rash Unclassified (20 sources) Hypertension, benign Unclassified (20 sources) Femoral artery aneurysm, right Unclassified (15 sources) Lung Nodule (518.89) Unclassified (10 sources) Continuous tobacco abuse Varicose veins of lower extremity (2 sources) Venous varices; Translations: [Varicose veins of unspecified lower extremity with inflammation] 07-15-2019 Episodic Varicose veins of lower extremity (1 source) Pain co-occurrent and due to varicose veins of left leg; Translations: [Varicose veins of left lower extremity with pain] Viral infection (15 sources) Genital herpes simplex; Translations: [Genital herpes] 09-02-2018 Chronic Viral infection (15 sources) Genital warts; Translations: [Genital warts] 09-02-2018 Episodic Past or Other Problems Problem Classification Problem Date Documented Da te Episodic/Chronic Aortic; peripheral; and visceral artery aneurysms (4 sources) Aneurysm of right femoral artery; 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 with r ecall -- need to do imaging or not -- blanca with pain now -- related to hernia or vascularture? Other and unspecified benign neoplasm (2 sources) Benign neoplasm of colon; Translations: [Benign neoplasm of colon, unspecified] Onset: 1 2011 Episodic Other connective tissue disease (5 sources) Other synovitis and tenosynovitis; Translations: [Tendonitis of elbow or forearm] Resolved: 4 06-14-2018 Episodic Other infections; including parasitic (5 sources) Infection of tick bite; Translations: [Tick bite, infected] Resolved: 4 06-14-2018 Episodic Other nutritional; endocrine; and metabolic disorders (4 sources) Insulin resistance; Translations: [Insulin resistance] 04-28-2019 Phlebitis; thrombophlebitis and thromboembolism (2 sources) Phlebitis; Translations: [Phlebitis and thrombophlebitis of unspecified site] Onset: 9 07-16-2009 Episodic Phlebitis; thrombophlebitis and thromboembolism (4 sources) Thrombophlebitis of superficial vein of left lower limb; Translations: [Thrombophlebitis of superficial veins of left lower extremity] 04-28-2019 Comment on above: pt chose aleve otc a nd will follow if migrates Residual codes; unclassified (5 sources) Increased body mass index; Translations: [BMI 29.0-29.9,adult] Resolved: 8 09-02-2018 Episodic Residual codes; unclassified (2 sources) Family history of cancer of colon; Translations: [Family history of malignant neoplasm of digestive organs] Onset: 9 07-16-2009 Episodic Residual codes; unclassified (2 sources) Family history of ischemic heart disease; Translations: [Family history of ischemic heart disease and other diseases of the circulatory system] Onset: 9 07-16-2009 Episodic Residual codes; unclassified (2 sources) Family history of prostate cancer; Translations: [Family history of malignant neoplasm of prostate] Onset: 9 07-16-2009 Episodic Residual codes; unclassified (2 sources) Family history of malignant neoplasm of gastrointestinal tract; Translations: [Family history of malignant neoplasm of digestive organs] Onset: 1 11-03-2010 Episodic Unclassified (15 sources) Screening status; Translations: [Encounter for screening for malignant neoplasm of prostate (Renamed from Screening for prostate cancer)] Resolved: 6 09-02-2018 Unclassified (5 sources) Insulin resistance Unclassified (5 sources) BMI 29.0-29.9,adult Unclassified (5 sources) PHARYNGITIS, ACUTE (462.) Unclassified (4 sources) Thrombophlebitis of superficial veins of left lower extremity Unclassified (2 sources) history of femoral artery aneurysm 03-31-2022 Results Test Name Value Interpretation Reference Range Facility Chest without Contraston Chest without Contrast [facility] [address] [place], [place] [address] Chest without Contrast MR#: [id number] Acct: [id number] Name: KERMIT IGNACIO Rep #: [id number] : 1960 M 64 From: Grabiel Riley MD PCP: Dr. Shay Olvera MD Status: REG CLI Study: Chest without Contrast Date of Exam: 03/14/24 Exam# [id number] Ordering Dr: Shay Olvera MD [id number] INDICATION: nodule, history of smoking EXAMINATION: CT CHEST WITHOUT CONTRAST - CT Chest W/O Contrast Injection TECHNIQUE: Helically acquired images were obtained of the chest. A radiation dose optimization technique was used for this scan. IV Contrast dosage and agent: None. COMPARISON: 02/23/2023 FINDINGS: LUNGS, PLEURA AND LARGE AIRWAYS: Mild bilateral apical scarring. No change in the 6 mm noncalcified subpleural right lower lobe of the lungs on image 98 consistent with a noncalcified granuloma or scar. This is unchanged dating back to 2018 consistent with a benign etiology requiring no further follow-up. No pleural effusion or thickening. No pneumothorax. THYROID: No thyroid lesions. HEART AND PERICARDIUM: Heart size is normal. No pericardial effusion. CORONARY ARTERIES: Coronary artery calcification is seen. VESSELS: Thoracic aorta is not dilated. MEDIASTINUM AND NHI: No mediastinal or hilar adenopathy. Esophagus is unremarkable. No hiatal hernia. UPPER ABDOMEN: No acute pathology. BONES: Mild dextroscoliosis lower thoracic spine with degenerative disc disease. CT/Chest without Contrast IMPRESSION: Negative CT chest without contrast. Electronically Signed: Grabiel Riley MD at 13:23 EDT , CC: Dr. Shay Olvera MD Electromedical Equipment Technician: Signed Normal [facility] Urine Cultureon 02-29-2024 URC Below infection leve l. Presumptive E. coli [place] Count <1000 Normal [facility] Comment on above: Performed By: #### L 500.4050, L100.0100, L506.1000, L501.9520, L501.5200, L500.4100 #### [facility] [address] [place], [address] Cytology, Body Fluid / CSFon 02-28-2024 CYTOLOGY,BF/CSF SEE PATHOLOGY REPORT Normal [facility] Comment on above: Order Comment: Order Date: 12/06/23 Order Info: [id number] - VITD25 Result Comment: Spec imen submitted to Anatomical Pathology Department for testing. Performed By: #### L 500.4050, L100.0100, L506.1000, L501.9520, L501.5200, L500.4100 #### [facility] [address] [place], [address] PSA,Total - Annual Screenon 02-28-2024 PSA,TOT SCREEN 1.86 ng/mL Normal 0.00-4.00 [facility] Comment on above: Order Comment: Order Date: 12/06/23 Order Info: [id number] - VITD25 Result Comment: This test was performed using the TPSA assay method for the [employer] chemistry system. Values obtained with different assay methods cannot be used interchangably. When changing PSA assays in the course of monitoring a patient, additional sequential testing should be carried out to confirm baseline values. Performed By: #### L 500.4050, L100.0100, L506.1000, L501.9520, L501.5200, L500.4100 #### [facility] [address] [place], [address] Pap Stain (control)on 2023 Pap Stain (control) ----- Patient Age/Sex Location Account Attending Physician MATEUSKERMIT Malone 64/M [facility] [id number] Dr. Shay Olvera MD Specimen: [id number] Received: 02/28/24 Status: JUAN Morales Num: [id number] Spec Type: CYSPIN FL Subm Dr: Dr. Shay Olvera MD HEADER OPERATION: Not noted PRE-OP DIAGNOSIS: Hematuria TISSUE SUBMITTED: Urine for cytology DIAGNOSIS CYTOLOGY Urine for cytology (cytospin): Negative for high grade urothelial carcinoma (Aida Category System II). See comment. AM/mr 02/29/2024 COMMENT The Aida System for urine cytology diagnostic categorization was used in the evaluation of this case. CYTOLOGY STUDY Slides are reviewed. CYTOLOGY GROSS Received is 20 ml of dark-gold cloudy fluid labeled with the patient's name and and designated per the requisition as urine. Submitted for cytology preparation. Mr 02/28/2024 TC:5 CPT: 65862 Signed (signature on file) Dr. Marvin Bender, DO 02/29/24 1249 Normal [facility] Comment on above: Performed By: #### P PAPS #### [facility] [address] [place], [address] Urinalysis, Completeon 02-27 BACTERIA 1+ /hpf Normal None Seen [facility] Comment on above: Order Comment: CLEAN CATCH Performed By: #### L 400.0001 #### [facility] [address] [place], [address] WBC 0-5 SEEN Normal 0-5 [facility] Comment on above: Order Comment: CLEAN CATCH Performed By: #### L 400.0001 #### [facility] [address] [place], [address] EPI,SQUAMOUS 0-5 SEEN Normal 0-5 [facility] Comment on above: Order Comment: CLEAN CATCH Performed By: #### L 400.0001 #### [facility] [address] [place], [address] Mucus Ql (Urine sed) 1+ /hpf Normal [facility] Comment on above: Order Comment: CLEAN CATCH Performed By: #### L 400.0001 #### [facility] [address] [place], [address] RBC 0 SEEN Normal 0-5 [facility] Comment on above: Order Comment: CLEAN CATCH Performed By: #### L 400.0001 #### [facility] [address] [place], [place], [id number] Absolute lymphocyte countOrd ered By: Shay Olvera on 12-06-2023 Lymphocytes Auto (Unsp spec) [#/Vol] 2.38 10*3/uL 0.83-4.51 [facility] Automated lymphocyte count a s percentage of total leukocytesOrdered By: Shay Olvera on 12-06-2023 Lymphocytes/100 WBC Auto (Unsp spec) 36.3 % 19-41 [facility] Basophil percentageOrdered B y: Shay Olvera on 12-06-2023 Basophil percentage 0-5 SEEN /hpf 0-5 [facility] Basophils/100 WBC (Bld) 1.7 % 0-1 [facility] Bilirubin [Mass/Vol] 0.60 mg/dL 0.20-1.00 [facility] Comment on above: For patients on eltr ombopag therapy, use of Dimension [place] TBIL is not recommended. Chloride [Moles/Vol] 107 mmol/L 98-107 [facility] Cholesterol [Mass/Vol] 172 mg/dL <200 [facility] Comment on above: <200 mg/dL Desirable 200-240 mg/dL Borderline >240 mg/dL High Risk Eosinophils/100 WBC (Bld) 3.4 % 0-5 [facility] Glucose [Mass/Vol] 87 mg/dL 74-106 [facility] Hemoglobin (Bld) [Mass/Vol] 15.1 g/dL 13.0-16.5 [facility] Monocytes/100 WBC (Bld) 8.8 % 0-10 [facility] Neutrophils (Bld) [#/Vol] 3.3 10*3/uL 2.0-7.7 [facility] Neutrophils/100 WBC (Bld) 49.5 % 47-70 [facility] Potassium [Moles/Vol] 4.1 mmol/L 3.5-5.1 [facility] Protein [Mass/Vol] 7.3 g/dL 6.4-8.2 [facility] Sodium [Moles/Vol] 139 mmol/L 136-145 [facility] Triglyceride [Mass/Vol] 215 mg/dL <199 [facility] Comment on above: The drugs N-Acetylcy steine and Metamizole may falsely depress this assay.Serum Triglycerides Reference Interval Normal <150 mg/dL Borderline high 150 - 199 mg/dL High 200 - 499 mg/dL Very High > or = 500 mg/dL WBC (Bld) [#/Vol] 6.6 10*3/uL 4.4-11.0 [facility] Bilirubin Test strip Ql (U)O rdered By: Shay Olvera on 12-06-2023 Bilirubin Ql (U) Negative Negative [facility] CBC W/Diff, Automatedon 11-09 Absolute Lymph 2.38 X10 3/uL Normal 0.83-4.51 [facility] Comment on above: Order Comment: Order Date: 12/06/23 Order Info: 0184-1 - CBCD Performed By: #### L 500.4050, L100.0100, L506.1000, L501.9520, L501.5200, L500.4100 #### [facility] [address] [place], [address] Absolute Neut 3.3 X10 3/uL Normal 2.0-7.7 [facility] Comment on above: Order Comment: Order Date: 12/06/23 Order Info: 0184- - CBCD Performed By: #### L 500.4050, L100.0100, L506.1000, L501.9520, L501.5200, L500.4100 #### [facility] [address] [place], [address] Basophils/100 WBC (Bld) 1.7 % High 0-1 [facility] Comment on above: Order Comment: Order Date: 12/06/23 Order Info: 0184- - CBCD Performed By: #### L 500.4050, L100.0100, L506.1000, L501.9520, L501.5200, L500.4100 #### [facility] [address] [place], [address] Eosinophils/100 WBC (Bld) 3.4 % Normal 0-5 [facility] Comment on above: Order Comment: Order Date: 12/06/23 Order Info: 0184-1 - CBCD Performed By: #### L 500.4050, L100.0100, L506.1000, L501.9520, L501.5200, L500.4100 #### [facility] [address] [place], [address] Erythrocyte distribution width (RBC) [Ratio] 14.2 % Normal 11.6-14.6 [facility] Comment on above: Order Comment: Order Date: 12/06/23 Order Info: 0184- - CBCD Performed By: #### L 500.4050, L100.0100, L506.1000, L501.9520, L501.5200, L500.4100 #### [facility] [address] [place], [address] Hematocrit (Bld) [Volume fraction] 46.1 % Normal 40-54 [facility] Comment on above: Order Comment: Order Date: 12/06/23 Order Info: 0184- - CBCD Performed By: #### L 500.4050, L100.0100, L506.1000, L501.9520, L501.5200, L500.4100 #### [facility] [address] [place], [address] Hemoglobin (Bld) [Mass/Vol] 15.1 g/dL Normal 13.0-16.5 [facility] Comment on above: Order Comment: Order Date: 12/06/23 Order Info: 0184- - CBCD Performed By: #### L 500.4050, L100.0100, L506.1000, L501.9520, L501.5200, L500.4100 #### [facility] [address] [place], [address] IG% 0.300 Normal 0.0-0.9 [facility] Comment on above: Order Comment: Order Date: 12/06/23 Order Info: 0184-1 - CBCD Result Comment: IG% - Immature Granulocytes (promyelocytes, myelocytes and metamyelocytes) > 1% indicates that a LEFT SHIFT is Present. Performed By: #### L 500.4050, L100.0100, L506.1000, L501.9520, L501.5200, L500.4100 #### [facility] [address] [place], [address] Lymphocytes/100 WBC (Bld) 36.3 % Normal 19-41 [facility] Comment on above: Order Comment: Order Date: 12/06/23 Order Info: 0184- - CBCD Performed By: #### L 500.4050, L100.0100, L506.1000, L501.9520, L501.5200, L500.4100 #### [facility] [address] [place], [address] MCH (RBC) [Entitic mass] 30.3 pg Normal 27.0-32.0 [facility] Comment on above: Order Comment: Order Date: 12/06/23 Order Info: 0184-1 - CBCD Performed By: #### L 500.4050, L100.0100, L506.1000, L501.9520, L501.5200, L500.4100 #### [facility] [address] [place], [address] MCHC (RBC) [Mass/Vol] 32.8 g/dL Normal 32-36 [facility] Comment on above: Order Comment: Order Date: 12/06/23 Order Info: 0184- - CBCD Performed By: #### L 500.4050, L100.0100, L506.1000, L501.9520, L501.5200, L500.4100 #### [facility] [address] [place], [address] MCV (RBC) [Entitic vol] 92.4 fL Normal 80-94 [facility] Comment on above: Order Comment: Order Date: 12/06/23 Order Info: 0184-1 - CBCD Performed By: #### L 500.4050, L100.0100, L506.1000, L501.9520, L501.5200, L500.4100 #### [facility] [address] [place], [address] Monocytes/100 WBC (Bld) 8.8 % Normal 0-10 [facility] Comment on above: Order Comment: Order Date: 12/06/23 Order Info: 0184- - CBCD Performed By: #### L 500.4050, L100.0100, L506.1000, L501.9520, L501.5200, L500.4100 #### [facility] [address] [place], [address] Neutrophils/100 WBC (Bld) 49.5 % Normal 47-70 [facility] Comment on above: Order Comment: Order Date: 12/06/23 Order Info: 0184- - CBCD Performed By: #### L 500.4050, L100.0100, L506.1000, L501.9520, L501.5200, L500.4100 #### [facility] [address] [place], [address] Nucleated RBC (Bld) [#/Vol] 0 10*3/uL Normal 0-5 [facility] Comment on above: Order Comment: Order Date: 12/06/23 Order Info: 0184-1 - CBCD Performed By: #### L 500.4050, L100.0100, L506.1000, L501.9520, L501.5200, L500.4100 #### [facility] [address] [place], [address] Platelet mean volume (Bld) [Entitic vol] 10.2 fL Normal 6.2-12.0 [facility] Comment on above: Order Comment: Order Date: 12/06/23 Order Info: 0184-1 - CBCD Performed By: #### L 500.4050, L100.0100, L506.1000, L501.9520, L501.5200, L500.4100 #### [facility] [address] [place], [address] Platelets (Bld) [#/Vol] 231 10*3/uL Normal 150-450 [facility] Comment on above: Order Comment: Order Date: 12/06/23 Order Info: 0184- - CBCD Performed By: #### L 500.4050, L100.0100, L506.1000, L501.9520, L501.5200, L500.4100 #### [facility] [address] [place], [address] RBC (Bld) [#/Vol] 4.99 10*6/uL Normal 4.6-6.2 [facility] Comment on above: Order Comment: Order Date: 12/06/23 Order Info: 0184- - CBCD Performed By: #### L 500.4050, L100.0100, L506.1000, L501.9520, L501.5200, L500.4100 #### [facility] [address] [place], [address] RDW SD 48.2 fl High 35.1-43.9 [facility] Comment on above: Order Comment: Order Date: 12/06/23 Order Info: 0184-1 - CBCD Performed By: #### L 500.4050, L100.0100, L506.1000, L501.9520, L501.5200, L500.4100 #### [facility] [address] [place], [address] WBC (Bld) [#/Vol] 6.6 10*3/uL Normal 4.4-11.0 [facility] Comment on above: Order Comment: Order Date: 12/06/23 Order Info: 0184-1 - CBCD Performed By: #### L 500.4050, L100.0100, L506.1000, L501.9520, L501.5200, L500.4100 #### [facility] [address] [place], [address] Comprehensive Metabolic Prof ilon 12-06-2023 Albumin [Mass/Vol] 3.6 g/dL Normal 3.2-5.0 [facility] Comment on above: Order Comment: Order Date: 12/06/23 Order Info: 0786-1 - CMP Order Info: [id number] - LIPID Order Info: [id number] - MG Order Info: 3016-3 - TSH Performed By: #### L 500.4050, L100.0100, L506.1000, L501.9520, L501.5200, L500.4100 #### [facility] [address] [place], [address] Albumin/Globulin [Mass ratio] 1.0 {ratio} Normal 0.9-2.4 [facility] Comment on above: Order Comment: Order Date: 12/06/23 Order Info: 0786-1 - CMP Order Info: [id number] - LIPID Order Info: [id number] - MG Order Info: 3016-3 - TSH Performed By: #### L 500.4050, L100.0100, L506.1000, L501.9520, L501.5200, L500.4100 #### [facility] [address] [place], [address] ALK P 96 U/L Normal 45-117 [facility] Comment on above: Order Comment: Order Date: 12/06/23 Order Info: 0786-1 - CMP Order Info: [id number] - LIPID Order Info: [id number] - MG Order Info: 3016-3 - TSH Performed By: #### L 500.4050, L100.0100, L506.1000, L501.9520, L501.5200, L500.4100 #### [facility] [address] [place], [address] ALT [Catalytic activity/Vol] 28 U/L Normal 16-61 [facility] Comment on above: Order Comment: Order Date: 12/06/23 Order Info: 0786-1 - CMP Order Info: [id number] - LIPID Order Info: [id number] - MG Order Info: 3016-3 - TSH Performed By: #### L 500.4050, L100.0100, L506.1000, L501.9520, L501.5200, L500.4100 #### [facility] [address] [place], [address] AST [Catalytic activity/Vol] 22 U/L Normal 15-37 [facility] Comment on above: Order Comment: Order Date: 12/06/23 Order Info: 785-1 - CMP Order Info: [id number] - LIPID Order Info: [id number] - MG Order Info: 3016-3 - TSH Performed By: #### L 500.4050, L100.0100, L506.1000, L501.9520, L501.5200, L500.4100 #### [facility] [address] [place], [address] Bilirubin [Mass/Vol] 0.60 mg/dL Normal 0.20-1.00 [facility] Comment on above: Order Comment: Order Date: 12/06/23 Order Info: 0786-1 - CMP Order Info: 41623-1 - LIPID Order Info: [id number] - MG Order Info: 3016-3 - TSH Result Comment: For patients on eltrombopag therapy, use of Dimension [place] TBIL is not recommended. Performed By: #### L 500.4050, L100.0100, L506.1000, L501.9520, L501.5200, L500.4100 #### [facility] [address] [place], [address] BUN/CRE 12.6 RATIO Normal 10-20 [facility] Comment on above: Order Comment: Order Date: 12/06/23 Order Info: 0786-1 - CMP Order Info: [id number] - LIPID Order Info: [id number] - MG Order Info: 3016-3 - TSH Performed By: #### L 500.4050, L100.0100, L506.1000, L501.9520, L501.5200, L500.4100 #### [facility] [address] [place], [address] CA,Total 8.9 mg/dL Normal 8.5-10.1 [facility] Comment on above: Order Comment: Order Date: 12/06/23 Order Info: 86-1 - CMP Order Info: [id number] - LIPID Order Info: [id number] - MG Order Info: 3016-3 - TSH Performed By: #### L 500.4050, L100.0100, L506.1000, L501.9520, L501.5200, L500.4100 #### [facility] [address] [place], [address] Chloride [Moles/Vol] 107 mmol/L Normal 98-107 [facility] Comment on above: Order Comment: Order Date: 12/06/23 Order Info: 86-1 - CMP Order Info: [id number] - LIPID Order Info: [id number] - MG Order Info: 3016-3 - TSH Performed By: #### L 500.4050, L100.0100, L506.1000, L501.9520, L501.5200, L500.4100 #### [facility] [address] [place], [address] CO2 [Moles/Vol] 27.0 mmol/L Normal 21.0-32.0 [facility] Comment on above: Order Comment: Order Date: 12/06/23 Order Info: 0786-1 - CMP Order Info: [id number] - LIPID Order Info: [id number] - MG Order Info: 3016-3 - TSH Performed By: #### L 500.4050, L100.0100, L506.1000, L501.9520, L501.5200, L500.4100 #### [facility] [address] [place], [address] Creatinine [Mass/Vol] 1.03 mg/dL Normal 0.70-1.30 [facility] Comment on above: Order Comment: Order Date: 12/06/23 Order Info: 86-1 - CMP Order Info: [id number] - LIPID Order Info: [id number] - MG Order Info: 3015-11 - TSH Result Comment: The validity of the calculated GFR GFRAA in patients over 70 years has not been determined. Clinical correlation is essential. Performed By: #### L 500.4050, L100.0100, L506.1000, L501.9520, L501.5200, L500.4100 #### [facility] [address] [place], [place], [id number] EST GFR - AA 94 mL/min Normal >60 [facility] Comment on above: Order Comment: Order Date: 12/06/23 Order Info: 785- - CMP Order Info: [id number] - LIPID Order Info: [id number] - MG Order Info: 3 - TSH Result Comment: Afri can [place] GFR Calc Performed By: #### L 500.4050, L100.0100, L506.1000, L501.9520, L501.5200, L500.4100 #### [facility] [address] [place], [address] GAP 5 Normal 5-15 [facility] Comment on above: Order Comment: Order Date: 12/06/23 Order Info: 0786-1 - CMP Order Info: [id number] - LIPID Order Info: [id number] - MG Order Info: 3 - TSH Performed By: #### L 500.4050, L100.0100, L506.1000, L501.9520, L501.5200, L500.4100 #### [facility] [address] [place], [address] GFR/1.73 sq M.predicted among non-blacks MDRD (S/P/Bld) [Vol rate/Area] 78 mL/min/{1.73_m2} Normal >60 [facility] Comment on above: Order Comment: Order Date: 12/06/23 Order Info: 86-1 - CMP Order Info: [id number] - LIPID Order Info: [id number] - MG Order Info: 3016-3 - TSH Result Comment: Non- GFR Calc Performed By: #### L 500.4050, L100.0100, L506.1000, L501.9520, L501.5200, L500.4100 #### [facility] [address] [place], [address] Globulin (S) [Mass/Vol] 3.7 g/dL Normal 2.2-4.2 [facility] Comment on above: Order Comment: Order Date: 12/06/23 Order Info: 785-1 - CMP Order Info: [id number] - LIPID Order Info: [id number] - MG Order Info: 3016-3 - TSH Performed By: #### L 500.4050, L100.0100, L506.1000, L501.9520, L501.5200, L500.4100 #### [facility] [address] [place], [address] Glucose [Mass/Vol] 87 mg/dL Normal 74-106 [facility] Comment on above: Order Comment: Order Date: 12/06/23 Order Info: 0786-1 - CMP Order Info: [id number] - LIPID Order Info: [id number] - MG Order Info: 3016-3 - TSH Performed By: #### L 500.4050, L100.0100, L506.1000, L501.9520, L501.5200, L500.4100 #### [facility] [address] [place], [address] Potassium [Moles/Vol] 4.1 mmol/L Normal 3.5-5.1 [facility] Comment on above: Order Comment: Order Date: 12/06/23 Order Info: 0786-1 - CMP Order Info: [id number] - LIPID Order Info: [id number] - MG Order Info: 3016-3 - TSH Performed By: #### L 500.4050, L100.0100, L506.1000, L501.9520, L501.5200, L500.4100 #### [facility] [address] [place], [address] Sodium [Moles/Vol] 139 mmol/L Normal 136-145 [facility] Comment on above: Order Comment: Order Date: 12/06/23 Order Info: 86-1 - CMP Order Info: [id number] - LIPID Order Info: [id number] - MG Order Info: 3016-3 - TSH Performed By: #### L 500.4050, L100.0100, L506.1000, L501.9520, L501.5200, L500.4100 #### [facility] [address] [place], [address] T PROT 7.3 g/dL Normal 6.4-8.2 [facility] Comment on above: Order Comment: Order Date: 12/06/23 Order Info: 0786-1 - CMP Order Info: [id number] - LIPID Order Info: [id number] - MG Order Info: 3016-3 - TSH Performed By: #### L 500.4050, L100.0100, L506.1000, L501.9520, L501.5200, L500.4100 #### [facility] [address] [place], [address] Urea nitrogen [Mass/Vol] 13 mg/dL Normal 7-18 [facility] Comment on above: Order Comment: Order Date: 12/06/23 Order Info: 0786-1 - CMP Order Info: [id number] - LIPID Order Info: [id number] - MG Order Info: 3016-3 - TSH Performed By: #### L 500.4050, L100.0100, L506.1000, L501.9520, L501.5200, L500.4100 #### [facility] [address] [place], [address] Determination of erythrocyte mean corpuscular volume (MCV)Ordered By: Shay Olvera on 12-06-2023 MCV (RBC) [Entitic vol] 92.4 fL 80-94 [facility] Erythrocyte distribution wid th ratioOrdered By: Shay Olvera on 12-06-2023 Erythrocyte distribution width (RBC) [Ratio] 14.2 % 11.6-14.6 [facility] Erythrocyte distribution wid th standard deviationOrdered By: Shay Olvera on 12-06-2023 Erythrocyte distribution width (RBC) [Entitic vol] 48.2 fL 35.1-43.9 [facility] Hematocrit Auto (Bld) [Volum e fraction]Ordered By: Shay Olvera on 12-06-2023 Hematocrit (Bld) [Volume fraction] 46.1 % 40-54 [facility] Immature granulocytes/100 WB C Auto (Bld)Ordered By: Shay Olvera on 12-06-2023 Immature granulocytes/100 WBC (Bld) 0.300 % 0.0-0.9 [facility] Comment on above: IG% - Immature Granu locytes (promyelocytes, myelocytes and metamyelocytes) > 1% indicates that a LEFT SHIFT is Present. Ketones Test strip Ql (U)Ord ered By: Shay Olvera on 12-06-2023 Ketones Ql (U) 5 mg/dl Negative [facility] - Chemistry and C hemistry - challengeOrdered By: Shay Olvera on 12-06-2023 Albumin/Globulin [Mass ratio] 1.0 {ratio} 0.9-2.4 [facility] ALP [Catalytic activity/Vol] 96 U/L 45-117 [facility] ALT [Catalytic activity/Vol] 28 U/L 16-61 [facility] Cholesterol in HDL [Mass/Vol] 33 mg/dL >40 [facility] Comment on above: The drugs N-Acetylcy steine and Metamizole may falsely depress this assay. Reference Range HDL <40 mg/dL Low HDL Cholesterol HDL >or= 60 mg/dL High HDL Cholesterol Cholesterol in LDL [Mass/Vol] 96 mg/dL 0-130 [facility] CO2 [Moles/Vol] 27.0 mmol/L 21.0-32.0 [facility] Globulin (S) [Mass/Vol] 3.7 g/dL 2.2-4.2 [facility] Magnesium [Mass/Vol] 2.3 mg/dL 1.6-2.6 [facility] Urea nitrogen/Creatinine [Mass ratio] 12.6 mg/mg 10-20 [facility] - Hematology and Cell countsOrdered By: Shay Olvera on 12-06-2023 MCH (RBC) [Entitic mass] 30.3 pg 27.0-32.0 [facility] MCHC (RBC) [Mass/Vol] 32.8 g/dL 32-36 [facility] Nucleated RBC/100 WBC (Bld) [Ratio] 0 % 0-5 [facility] Platelet mean volume (Bld) [Entitic vol] 10.2 fL 6.2-12.0 [facility] Platelets (Bld) [#/Vol] 231 10*3/uL 150-450 [facility] Lipid Profileon 12-06-2023 Cholesterol [Mass/Vol] 172 mg/dL Normal 200 [facility] Comment on above: Order Comment: Order Date: 12/06/23 Order Info: [id number] - CMP Order Info: [id number] - LIPID Order Info: [id number] - MG Order Info: [id number] - TSH Result Comment: <200 mg/dL Desirable 200-240 mg/dL Borderline >240 mg/dL High Risk Performed By: #### L 500.4050, L100.0100, L506.1000, L501.9520, L501.5200, L500.4100 #### [facility] [address] [place], [address] Cholesterol in HDL [Mass/Vol] 33 mg/dL Low [facility] Comment on above: Order Comment: Order Date: 12/06/23 Order Info: [id number] - CMP Order Info: - LIPID Order Info: [id number] - MG Order Info: [id number] - TSH Result Comment: The drugs N-Acetylcysteine and Metamizole may falsely depress this assay. Reference Range HDL <40 mg/dL Low HDL Cholesterol HDL >or= 60 mg/dL High HDL Cholesterol Performed By: #### L 500.4050, L100.0100, L506.1000, L501.9520, L501.5200, L500.4100 #### [facility] [address] [place], [address] Cholesterol in LDL [Mass/Vol] 96 mg/dL Normal 0-130 [facility] Comment on above: Order Comment: Order Date: 12/06/23 Order Info: [id number] - CMP Order Info: - LIPID Order Info: [id number] - MG Order Info: 3 - TSH Performed By: #### L 500.4050, L100.0100, L506.1000, L501.9520, L501.5200, L500.4100 #### [facility] [address] [place], [address] Cholesterol in VLDL [Mass/Vol] 43 mg/dL High 5-40 [facility] Comment on above: Order Comment: Order Date: 12/06/23 Order Info: [id number] - CMP Order Info: - LIPID Order Info: [id number] - MG Order Info: 3 - TSH Performed By: #### L 500.4050, L100.0100, L506.1000, L501.9520, L501.5200, L500.4100 #### [facility] [address] [place], [address] Triglyceride [Mass/Vol] 215 mg/dL High [facility] Comment on above: Order Comment: Order Date: 12/06/23 Order Info: [id number] - CMP Order Info: - LIPID Order Info: [id number] - MG Order Info: 3015-3 - TSH Result Comment: The drugs N-Acetylcysteine and Metamizole may falsely depress this assay. Serum Triglycerides Reference Interval Normal <150 mg/dL Borderline high 150 - 199 mg/dL High 200 - 499 mg/dL Very High > or = 500 mg/dL Performed By: #### L 500.4050, L100.0100, L506.1000, L501.9520, L501.5200, L500.4100 #### [facility] [address] [place], [place], [address] Magnesiumon 12-06-2023 Magnesium [Mass/Vol] 2.3 mg/dL Normal 1.6-2.6 [facility] Comment on above: Order Comment: Order Date: 12/06/23 Order Info: 0786-1 - CMP Order Info: [id number] - LIPID Order Info: [id number] - MG Order Info: 3016-3 - TSH Performed By: #### L 500.4050, L100.0100, L506.1000, L501.9520, L501.5200, L500.4100 #### [facility] [address] [place], [place], [address] Mucus LM Ql (Urine sed)Order ed By: Shay Olvera on 12-06-2023 Mucus Ql (Urine sed) 0 SEEN /hpf [facility] Nitrite Test strip Ql (U)Ord ered By: Shay Olvera on 12-06-2023 Nitrite Ql (U) Negative Negative [facility] No Panel InformationOrdered By: Shay Olvera on 12-06-2023 Estimated GFR (MDRD) Amer 94 mL/min >60 [facility] Comment on above: GFR Calc Estimated GFR (MDRD) Non-Af Amer 78 mL/min >60 [facility] Comment on above: Non- GFR Calc Urine RBC 0 SEEN /hpf 0-5 [facility] Vitamin D 25-Hydroxy 81.2 ng/mL [facility] Comment on above: Vitamin D 25(OH) Sta tus Range Deficiency <20 ng/mL (50nmol/L) Insufficiency 20 - 30 ng/mL (50 - 75 nmol/L) Sufficiency 30 - 100 ng/mL (75 - 250 nmol/L) Toxicity >100 ng/mL (>250 nmol/L) VLDL Cholesterol 43 mg/dL 5-40 [facility] Protein Test strip Ql (U)Ord ered By: Shay Olvera on 12-06-2023 Protein Ql (U) 15 mg/dl Negative [facility] RBC Auto (Bld) [#/Vol]Ordere d By: Shay Olvera on 12-06-2023 RBC (Bld) [#/Vol] 4.99 10*6/uL 4.6-6.2 [facility] Serum or plasma calcium shannon urement (mass/volume)Ordered By: Shay Olvera on 12-06-2023 Calcium [Mass/Vol] 8.9 mg/dL 8.5-10.1 [facility] Serum or plasma creatinine m easurement (mass/volume)Ordered By: Shay Olvera on 12-06-2023 Creatinine [Mass/Vol] 1.03 mg/dL 0.70-1.30 [facility] Comment on above: The validity of the calculated GFR & GFRAA in patients over 70 years has not been determined. Clinical correlation is essential. Serum or plasma thyroid stim ulating hormone (TSH) measurement (units/volume)Ordered By: Shay Olvera on 12-06-2023 TSH Qn 0.60 uIU/mL 0.358-3.74 [facility] Serum or plasma urea nitroge n measurement (mass/volume)Ordered By: Shay Olvera on 12-06-2023 Urea nitrogen [Mass/Vol] 13 mg/dL 7-18 [facility] Squamous epithelial cells de tection in urine sediment by light microscopyOrdered By: Shay Olvera on 12-06-2023 Epithelial cells.squamous LM Ql (Urine sed) 0 SEEN /hpf 0-5 [facility] Thin prep Papanicolaou smear with manual screeningOrdered By: Shay Olvera on 12-06-2023 Thin prep Papanicolaou smear with manual screening 3.6 g/dL 3.2-5.0 [facility] Thin prep Papanicolaou smear with manual screening 22 U/L 15-37 [facility] Thin prep Papanicolaou smear with manual screening 5 5-15 [facility] Thyroid Stim Hormone (TSH)on 12-06-2023 TSH 0.60 uIU/mL Normal 0.358-3.74 [facility] Comment on above: Order Comment: Order Date: 12/06/23 Order Info: [id number] - CMP Order Info: [id number] - LIPID Order Info: [id number] - MG Order Info: [id number] - TSH Performed By: #### L 500.4050, L100.0100, L506.1000, L501.9520, L501.5200, L500.4100 #### [facility] [address] [place], [address] Urinalysis, Completeon 12-05 WBC 0-5 SEEN Normal 0-5 [facility] Comment on above: Order Comment: CLEAN CATCH Performed By: #### L 400.0001 #### [facility] [address] [place], [address] BACTERIA 0 SEEN Normal None Seen [facility] Comment on above: Order Comment: CLEAN CATCH Performed By: #### L 400.0001 #### [facility] [address] [place], [address] EPI,SQUAMOUS 0 SEEN Normal 0-5 [facility] Comment on above: Order Comment: CLEAN CATCH Performed By: #### L 400.0001 #### [facility] [address] [place], [address] Mucus Ql (Urine sed) 0 SEEN Normal [facility] Comment on above: Order Comment: CLEAN CATCH Performed By: #### L 400.0001 #### [facility] [address] [place], [address] RBC 0 SEEN Normal 0-5 [facility] Comment on above: Order Comment: CLEAN CATCH Performed By: #### L 400.0001 #### [facility] [address] [place], [address] Urine blood detectionOrdered By: Shay Olvera on 12-06-2023 RBC Ql (U) Negative Negative [facility] Urine clarityOrdered By: Salbador Olvera on 12-06-2023 Clarity (U) Sl. Cloudy Clear [facility] Urine color determinationOrd ered By: Shay Olvera on 12-06-2023 Color (U) Yellow Yellow [facility] Urine glucose detectionOrder ed By: Shay Olvera on 12-06-2023 Glucose Ql (U) Normal mg/dl Normal [facility] Urine leukocyte esterase det ection by dipstickOrdered By: Shay Olvera on 12-06-2023 Leukocyte esterase Test strip Ql (U) 25 /ul Negative [facility] Urine pHOrdered By: Shay cornejo on 12-06-2023 pH (U) 6.0 [pH] 5.0 - 8.0 [facility] Urine sediment bacteria coun t by microscopy (number/high power field)Ordered By: Shay Olvera on 12-06-2023 Bacteria LM.HPF (Urine sed) [#/Area] 0 /[HPF] None Seen [facility] Urine specific gravity measu rementOrdered By: Shay Olvera on 12-06-2023 Specific gravity (U) [Rel density] 1.025 1.002-1.03 0 [facility] Urine urobilinogen measureme ntOrdered By: Shay Olvera on 12-06-2023 Urobilinogen Ql (U) 1 mg/dl Normal [facility] Vitamin D,25 Hydroxyon 12-05 Vitamin D 25-OH 81.2 ng/mL Normal [facility] Comment on above: Order Comment: Order Date: 12/06/23 Order Info: [id number] - VITD25 Result Comment: Rhiannon min D 25(OH) Status Range Deficiency <20 ng/mL (50nmol/L) Insufficiency 20 - 30 ng/mL (50 - 75 nmol/L) Sufficiency 30 - 100 ng/mL (75 - 250 nmol/L) Toxicity >100 ng/mL (>250 nmol/L) Performed By: #### L 500.4050, L100.0100, L506.1000, L501.9520, L501.5200, L500.4100 #### [facility] [address] [place], [address] Absolute lymphocyte countOrd ered By: Dr. Olvera on 02-13-2023 Lymphocytes Auto (Unsp spec) [#/Vol] 2.98 10*3/uL 0.83-4.51 [facility] Basophil percentageOrdered B y: Dr. Olvera on 02-13-2023 Basophil percentage 0 SEEN /hpf 0-5 [facility] Basophils/100 WBC (Bld) 1.4 % 0-1 [facility] Bilirubin [Mass/Vol] 0.50 mg/dL 0.20-1.00 [facility] Comment on above: For patients on eltr ombopag therapy, use of Dimension [place] TBIL is not recommended. Chloride [Moles/Vol] 109 mmol/L 98-107 [facility] Cholesterol [Mass/Vol] 181 mg/dL <200 [facility] Comment on above: <200 mg/dL Desirable 200-240 mg/dL Borderline >240 mg/dL High Risk Eosinophils/100 WBC (Bld) 3.7 % 0-5 [facility] Glucose [Mass/Vol] 80 mg/dL 74-106 [facility] Neutrophils (Bld) [#/Vol] 2.4 10*3/uL 2.0-7.7 [facility] Neutrophils/100 WBC (Bld) 37.9 % 47-70 [facility] Potassium [Moles/Vol] 4.4 mmol/L 3.5-5.1 [facility] Protein [Mass/Vol] 7.0 g/dL 6.4-8.2 [facility] Sodium [Moles/Vol] 140 mmol/L 136-145 [facility] Triglyceride [Mass/Vol] 398 mg/dL <199 [facility] Comment on above: The drugs N-Acetylcy steine and Metamizole may falsely depress this assay.Serum Triglycerides Reference Interval Normal <150 mg/dL Borderline high 150 - 199 mg/dL High 200 - 499 mg/dL Very High > or = 500 mg/dL WBC (Bld) [#/Vol] 6.3 10*3/uL 4.4-11.0 [facility] Bilirubin Test strip Ql (U)O rdered By: Dr. Olvera on 02-13-2023 Bilirubin Ql (U) Negative Negative [facility] Blood erythrocytes count (nu mber/volume)Ordered By: Dr. Olvera on 02-13-2023 RBC (Bld) [#/Vol] 4.97 10*6/uL 4.6-6.2 [facility] Blood hemoglobin measurement (mass/volume)Ordered By: Dr. Olvera on 02-13-2023 Hemoglobin (Bld) [Mass/Vol] 15.4 g/dL 13.0-16.5 [facility] Blood lymphocytes/100 leukoc ytesOrdered By: Dr. Olvera on 02-13-2023 Lymphocytes/100 WBC (Bld) 47.6 % 19-41 [facility] Blood monocytes/100 leukocyt esOrdered By: Dr. Olvera on 02-13-2023 Monocytes/100 WBC (Bld) 9.1 % 0-10 [facility] Blood platelet mean volumeOr dered By: Dr. Olvera on 02-13-2023 Platelet mean volume (Bld) [Entitic vol] 10.0 fL 6.2-12.0 [facility] Calcium oxalate crystals det ection in urine sediment by light microscopyOrdered By: Dr. Olvera on 02-13-2023 Calcium oxalate crystals LM Ql (Urine sed) 1+ /hpf [facility] Determination of erythrocyte mean corpuscular volume (MCV)Ordered By: Dr. Olvera on 02-13-2023 MCV (RBC) [Entitic vol] 94.2 fL 80-94 [facility] Hematocrit Auto (Bld) [Volum e fraction]Ordered By: Dr. Olvera on 02-13-2023 Hematocrit (Bld) [Volume fraction] 46.8 % 40-54 [facility] Ketones Test strip Ql (U)Ord ered By: Dr. Olvera on 02-13-2023 Ketones Ql (U) Negative Negative [facility] Laboratory - Chemistry and C hemistry - challengeOrdered By: Dr. Olvera on 02-13-2023 ALP [Catalytic activity/Vol] 102 U/L 45-117 [facility] ALT [Catalytic activity/Vol] 29 U/L 16-61 [facility] CO2 [Moles/Vol] 27.0 mmol/L 21.0-32.0 [facility] Globulin (S) [Mass/Vol] 3.4 g/dL 2.2-4.2 [facility] Urea nitrogen/Creatinine [Mass ratio] 14.6 mg/mg 10-20 [facility] - Hematology and Cell countsOrdered By: Dr. Olvera on 02-13-2023 Erythrocyte distribution width (RBC) [Entitic vol] 48.4 fL 35.1-43.9 [facility] Erythrocyte distribution width (RBC) [Ratio] 14.1 % 11.6-14.6 [facility] Immature granulocytes/100 WBC (Bld) 0.300 % 0.0-0.9 [facility] Comment on above: IG% - Immature Granu locytes (promyelocytes, myelocytes and metamyelocytes) > 1% indicates that a LEFT SHIFT is Present. MCH (RBC) [Entitic mass] 31.0 pg 27.0-32.0 [facility] Nucleated RBC/100 WBC (Bld) [Ratio] 0 % 0-5 [facility] MCHC Auto (RBC) [Mass/Vol]Or dered By: Dr. Olvera on 02-13-2023 MCHC (RBC) [Mass/Vol] 32.9 g/dL 32-36 [facility] Mucus LM Ql (Urine sed)Order ed By: Dr. Olvera on 02-13-2023 Mucus Ql (Urine sed) 0 SEEN /hpf [facility] Nitrite Test strip Ql (U)Ord ered By: Dr. Olvera on 02-13-2023 Nitrite Ql (U) Negative Negative [facility] No Panel InformationOrdered By: Dr. Olvera on 02-13-2023 Estimated GFR (MDRD) Amer 112 mL/min >60 [facility] Comment on above: GFR Calc Estimated GFR (MDRD) Non-Af Amer 92 mL/min >60 [facility] Comment on above: Non- GFR Calc Prostate Specific Antigen Screen 1.62 ng/mL 0.00-4.00 [facility] Comment on above: This test was perfor med using the TPSA assay method [facility]. Values obtained with differentassay methods cannot be used interchangably.When changing PSA assays in the course of monitoring apatient, additional sequential testing should be carriedout to confirm baseline values. Thyroid Stimulating Hormone (TSH) 0.80 uIU/mL 0.358-3.74 [facility] Vitamin D 25-Hydroxy 78.7 ng/mL [facility] Comment on above: Vitamin D 25(OH) Sta tus Range Deficiency <20 ng/mL (50nmol/L) Insufficiency 20 - 30 ng/mL (50 - 75 nmol/L) Sufficiency 30 - 100 ng/mL (75 - 250 nmol/L) Toxicity >100 ng/mL (>250 nmol/L) Platelets bldOrdered By: Dr. Olvera on 02-13-2023 Platelets (Bld) [#/Vol] 241 10*3/uL 150-450 [facility] Protein Test strip Ql (U)Ord ered By: Dr. Olvera on 02-13-2023 Protein Ql (U) Negative Negative [facility] Serum or plasma albumin shannon urement (mass/volume)Ordered By: Dr. Olvera on 02-13-2023 Albumin [Mass/Vol] 3.6 g/dL 3.2-5.0 [facility] Serum or plasma albumin/glob ulin mass ratioOrdered By: Dr. Olvera on 02-13-2023 Albumin/Globulin [Mass ratio] 1.1 {ratio} 0.9-2.4 [facility] Serum or plasma calcium shannon urement (mass/volume)Ordered By: Dr. Olvera on 02-13-2023 Calcium [Mass/Vol] 8.5 mg/dL 8.5-10.1 [facility] Serum or plasma cholesterol in HDL measurement (mass/volume)Ordered By: Dr. Olvera on 02-13-2023 Cholesterol in HDL [Mass/Vol] 33 mg/dL >40 [facility] Comment on above: The drugs N-Acetylcy steine and Metamizole may falsely depress this assay. Reference Range HDL <40 mg/dL Low HDL Cholesterol HDL >or= 60 mg/dL High HDL Cholesterol Serum or plasma cholesterol in VLDL measurement (mass/volume)Ordered By: Dr. Olvera on 02-13-2023 Cholesterol in VLDL [Mass/Vol] 80 mg/dL 5-40 [facility] Serum or plasma creatinine m easurement (mass/volume)Ordered By: Dr. Olvera on 02-13-2023 Creatinine [Mass/Vol] 0.89 mg/dL 0.70-1.30 [facility] Comment on above: The validity of the calculated GFR & GFRAA in patients over 70 years has not been determined. Clinical correlation is essential. Serum or plasma low density lipoprotein (LDL) cholesterol measurement (mass/volume)Ordered By: Dr. Olvera on 02-13-2023 Cholesterol in LDL [Mass/Vol] 68 mg/dL 0-130 [facility] Serum or plasma urea nitroge n measurement (mass/volume)Ordered By: Dr. Olvera on 02-13-2023 Urea nitrogen [Mass/Vol] 13 mg/dL 7-18 [facility] Squamous epithelial cells de tection in urine sediment by light microscopyOrdered By: Dr. Olvera on 02-13-2023 Epithelial cells.squamous LM Ql (Urine sed) 0-5 SEEN /hpf 0-5 [facility] Thin prep Papanicolaou smear with manual screeningOrdered By: Dr. Olvera on 02-13-2023 Thin prep Papanicolaou smear with manual screening 24 U/L 15-37 [facility] Thin prep Papanicolaou smear with manual screening 4 5-15 [facility] Urine blood detectionOrdered By: Dr. Olvera on 02-13-2023 RBC Ql (U) Negative Negative [facility] RBC Ql (U) 0 SEEN /hpf 0-5 [facility] Urine clarityOrdered By: Dr. Olvera on 02-13-2023 Clarity (U) Clear Clear [facility] Urine color determinationOrd ered By: Dr. Olvera on 02-13-2023 Color (U) Yellow Yellow [facility] Urine glucose detectionOrder ed By: Dr. Olvera on 02-13-2023 Glucose Ql (U) Normal mg/dl Normal [facility] Urine leukocyte esterase det ection by dipstickOrdered By: Dr. Olvera on 02-13-2023 Leukocyte esterase Test strip Ql (U) Negative Negative [facility] Urine pHOrdered By: Dr. Aj paulino on 02-13-2023 pH (U) 7.0 [pH] 5.0 - 8.0 [facility] Urine sediment bacteria coun t by microscopy (number/high power field)Ordered By: Dr. Olvera on 02-13-2023 Bacteria LM.HPF (Urine sed) [#/Area] 0 /[HPF] None Seen [facility] Urine specific gravity measu rementOrdered By: Dr. Olvera on 02-13-2023 Specific gravity (U) [Rel density] 1.015 1.002-1.03 0 [facility] Urobilinogen Auto test strip Ql (U)Ordered By: Dr. Olvera on 02-13-2023 Urobilinogen Ql (U) 4 mg/dl Normal [facility] MATE[facility] ( ) 1960 M Date Time Provider Department 12/31/20 JENNIFER PALMER ([facility])SPPRAD During your visit today, we recorded the following information about you: Jennifer Pérez APRN.[facility] 12/31/2020 4:34 PM Signed Recall colonoscopy (2nd call). Pt stated he will have his own doctor schedule him for rpt colonoscopy. Refused number to schedule. Allergies As of Date: 12/31/2020 (No Known Allergies) Date Reviewed: 2011 Reviewed by: Johanna Nagy Lpn - Fully Assessed Reason for Visit: recall colonoscopy [Other] Prescriptions as of 12/31/2020 Sig: HYDROCORTISONE ACETATE 25 MG * 1 Suppository by RECTAL route* LISINOPRIL 20 MG-HYDROCHLOROT* Take 1 tablet by mouth once d* SULFAMETHOXAZOLE 800 MG-TRIME* Take 1 tablet by mouth twice * CLINDAMYCIN HCL 150 MG CAPSULE Take 1 capsule by mouth three* BETAMETHASONE DIPROPIONATE 0.* Apply 1 application to affect* ACYCLOVIR 5 % TOPICAL OINTMENT Apply 1 application to affect* AMOXICILLIN 875 MG TABLET Take 1 tablet by mouth twice * PSEUDOEPHEDRINE-GUAIFENES IN E* Take 1 tablet by mouth every * BENZONATATE 200 MG CAPSULE Take by mouth. ONE (1) CAPSU* ASPIRIN 325 MG TABLET,DELAYED* Take one(1) tablet two(2) nhi* Problem List As Of Date 12/31/2020 Noted Resolved Essential hypertension, malignant [I10] 07/24/2005 06/14/2016 Hypoglycemia, unspecified [E16.2] 02/14/2007 Family Hx of Colon Cancer [Z80.0] 07/16/2009 Fam Hx-Ischem Heart Disease [Z82.49] 07/16/2009 Family Hx of Prostate Cancer [Z80.42] 07/16/2009 Phlebitis [I80.9] 07/16/2009 Benign neoplasm of colon [D12.6] 11/03/2010 Family history of malignant neoplasm of gastroi*11/03/2010 Encounter Status:Closed by JENNIFER PALMER on 12/31/20 [facility] 12-16-2020 [facility] Telephone (SPPRAD) ----- KERMIT IGNACIO ( ) 1960 M Date Time Provider Department 12/16/20 JENNIFER PALMER SPPRAD During your visit today, we recorded the following information about you: Jennifer Pérez 12/16/2020 1:35 PM Signed Recall colonoscopy (1st call). Left a message for pt to call [phone] to schedule or call office at [phone] for questions. Allergies As of Date: 12/16/2020 (No Known Allergies) Date Reviewed: 2011 Reviewed by: Johanna Nagy Lpn - Fully Assessed Reason for Visit: recall colonoscopy [Other] Prescriptions as of 12/16/2020 Sig: HYDROCORTISONE ACETATE 25 MG * 1 Suppository by RECTAL route* LISINOPRIL 20 MG-HYDROCHLOROT* Take 1 tablet by mouth once d* SULFAMETHOXAZOLE 800 MG-TRIME* Take 1 tablet by mouth twice * CLINDAMYCIN HCL 150 MG CAPSULE Take 1 capsule by mouth three* BETAMETHASONE DIPROPIONATE 0.* Apply 1 application to affect* ACYCLOVIR 5 % TOPICAL OINTMENT Apply 1 application to affect* AMOXICILLIN 875 MG TABLET Take 1 tablet by mouth twice * PSEUDOEPHEDRINE-GUAIFENES IN E* Take 1 tablet by mouth every * BENZONATATE 200 MG CAPSULE Take by mouth. ONE (1) CAPSU* ASPIRIN 325 MG TABLET,DELAYED* Take one(1) tablet two(2) nhi* Problem List As Of Date 12/16/2020 Noted Resolved Essential hypertension, malignant [I10] 07/24/2005 06/14/2016 Hypoglycemia, unspecified [E16.2] 02/14/2007 Family Hx of Colon Cancer [Z80.0] 07/16/2009 Fam Hx-Ischem Heart Disease [Z82.49] 07/16/2009 Family Hx of Prostate Cancer [Z80.42] 07/16/2009 Phlebitis [I80.9] 07/16/2009 Benign neoplasm of colon [D12.6] 11/03/2010 Family history of malignant neoplasm of gastroi*11/03/2010 Encounter Status:Closed by JENNIFER PALMER on 01/06/21 [facility] VL Arterial PVR Lower w Exer cischristaon 03-16-2020 [facility] Multilevel Lower Extremity Arterial Evaluation with Exercise Ordering Physician: David Holly MD Design Agent: Erika Eaton RVT Interpreting Physician: Little Arcos Location: [address] Indications: Atherosclerosis of [place] arteries. Claudication. Conclusions 1. KAMILA and PVR waveforms of the right leg normal at rest. TBI and digit waveforms diminished, small vessel disease vs spasm 2. The right lower extremity shows a normal response to exercise. 3. KAMILA and PVR/digit waveforms of the left leg normal at rest. TBI diminished, small vessel disease vs spasm 4. The left lower extremity shows a normal response to exercise. History: Risk factors: Former tobacco use. Hypertension. Study data: Lower extremity multilevel physiologic evaluation with exercise. Pressure measurement and pulse volume recording. Location: Vascular laboratory. Procedure: A vascular evaluation was performed with the patient in the supine position. Images were obtained using a [employer] vascular ultrasound machine. Bilateral lower extremity stress arterial Doppler test was initiated with baseline measurements. The patient ambulated on the treadmill for 5 min at 1.5 mph at a 10% grade. The patient denied pain. Post exercise measurements were recorded. An exercise arterial exam was performed with exercise on a treadmill. Pre and post exercise measurements were recorded. Arterial pressure indices: + + ---+ +-------- -------+ + +Location +Pressure +Index (REST)+Pressure (POST +Index (POST + + +(REST)* + +STRESS) +STRESS) + + + ---+ +-------- -------+ + +R brachial +154 + + ----+ + + + ---+ +-------- -------+ + +R DP +172 +1.10 + +-------- ----+ + + ---+ +-------- -------+ + +R PT +188 +1.20 +205 +1.16 + + + ---+ +-------- -------+ + +R great toe+105 +0.67 + +-------- ----+ + + ---+ +-------- -------+ + +L brachial +157 + +176 + + + + ---+ +-------- -------+ + +L DP +160 +1.02 + +-------- ----+ + + ---+ +-------- -------+ + +L PT +178 +1.13 +204 +1.16 + + + ---+ +-------- -------+ + +L great toe+109 +0.69 + +-------- ----+ + + ---+ +-------- -------+ + Photoplethysmography: +---------+---------+ +Digits +Pressure + +---------+---------+ +R 1st toe+105 mm Hg+ +---------+---------+ +L 1st toe+109 mm Hg+ +---------+---------+ Prepared and electronically signed by Little Arcos 03/16/2020 17:49 [facility] [place] [place] [facility] Incoming Cardiology Results From Willa/Alanis - 03/16/2020 5:50 PM EDT [facility] Multilevel Lower Extremity Arterial Evaluation with Exercise Ordering Physician: David Holly MD Design Agent: Erika Eaton RVT Interpreting Physician: Little Arcos Location: [address] Indications: Atherosclerosis of [place] arteries. Claudication. Conclusions 1. KAMILA and PVR waveforms of the right leg normal at rest. TBI and digit waveforms diminished, small vessel disease vs spasm 2. The right lower extremity shows a normal response to exercise. 3. KAMILA and PVR/digit waveforms of the left leg normal at rest. TBI diminished, small vessel disease vs spasm 4. The left lower extremity shows a normal response to exercise. History: Risk factors: Former tobacco use. Hypertension. Study data: Lower extremity multilevel physiologic evaluation with exercise. Pressure measurement and pulse volume recording. Location: Vascular laboratory. Procedure: A vascular evaluation was performed with the patient in the supine position. Images were obtained using a [employer] vascular ultrasound machine. Bilateral lower extremity stress arterial Doppler test was initiated with baseline measurements. The patient ambulated on the treadmill for 5 min at 1.5 mph at a 10% grade. The patient denied pain. Post exercise measurements were recorded. An exercise arterial exam was performed with exercise on a treadmill. Pre and post exercise measurements were recorded. Arterial pressure indices: + + ---+ +-------- -------+ + +Location +Pressure +Index (REST)+Pressure (POST +Index (POST + + +(REST)* + +STRESS) +STRESS) + + + ---+ +-------- -------+ + +R brachial +154 + + ----+ + + + ---+ +-------- -------+ + +R DP +172 +1.10 + +-------- ----+ + + ---+ +-------- -------+ + +R PT +188 +1.20 +205 +1.16 + + + ---+ +-------- -------+ + +R great toe+105 +0.67 + +-------- ----+ + + ---+ +-------- -------+ + +L brachial +157 + +176 + + + + ---+ +-------- -------+ + +L DP +160 +1.02 + +-------- ----+ + + ---+ +-------- -------+ + +L PT +178 +1.13 +204 +1.16 + + + ---+ +-------- -------+ + +L great toe+109 +0.69 + +-------- ----+ + + ---+ +-------- -------+ + Photoplethysmography: +---------+---------+ +Digits +Pressure + +---------+---------+ +R 1st toe+105 mm Hg+ +---------+---------+ +L 1st toe+109 mm Hg+ +---------+---------+ Prepared and electronically signed by Little Arcos 03/16/2020 17:49 [place] VL PVR Arterial Doppler Lowe r w/ Exercison 03-16-2020 VL PVR Arterial Doppler Lower w/ Exercis Patient Name: KERMIT IGNACIO Ultrasound Exam Date/Time 03/16/2020 15:57:16 EDT Exam VL PVR Arterial Doppler Lwr w/ Exercise Ordering Physician DAVID HOLLY Accession Number [id number] [facility] Codes [id number] () Reason For Exam Atherosclerosis of [place] arteries of extremities with intermittent claudication, left leg Report [facility] Multilevel Lower Extremity Arterial Evaluation with Exercise Ordering Physician: David Holly MD Design Agent: ANALY HoytT Interpreting Physician: Little Arcos Location: [address] Indications: Atherosclerosis of [place] arteries. Claudication. Conclusions 1. KAMILA and PVR waveforms of the right leg normal at rest. TBI and digit waveforms diminished, small vessel disease vs spasm 2. The right lower extremity shows a normal response to exercise. 3. KAMILA and PVR/digit waveforms of the left leg normal at rest. TBI diminished, small vessel disease vs spasm 4. The left lower extremity shows a normal response to exercise. History: Risk factors: Former tobacco use. Hypertension. Study data: Lower extremity multilevel physiologic evaluation with exercise. Pressure measurement and pulse volume recording. Location: Vascular laboratory. Procedure: A vascular evaluation was performed with the patient in the supine position. Images were obtained using a [employer] vascular ultrasound machine. Bilateral lower extremity stress arterial Doppler test was initiated with baseline measurements. The patient ambulated on the treadmill for 5 min at 1.5 mph at a 10% grade. The patient denied pain. Post exercise measurements were recorded. An exercise arterial exam was performed with exercise on a treadmill. Pre and post exercise measurements were recorded. Arterial pressure indices: + + ---+ +-------- -------+ + +Location +Pressure +Index (REST)+Pressure (POST +Index (POST + + +(REST)* + +STRESS) +STRESS) + + + ---+ +-------- -------+ + +R brachial +154 + + ----+ + + + ---+ +-------- -------+ + +R DP +172 +1.10 + +-------- ----+ + + ---+ +-------- -------+ + +R PT +188 +1.20 +205 +1.16 + + + ---+ +-------- -------+ + +R great toe+105 +0.67 + +-------- ----+ + + ---+ +-------- -------+ + +L brachial +157 + +176 + + + + ---+ +-------- -------+ + +L DP +160 +1.02 + +-------- ----+ + + ---+ +-------- -------+ + +L PT +178 +1.13 +204 +1.16 + + + ---+ +-------- -------+ + +L great toe+109 +0.69 + +-------- ----+ + + ---+ +-------- -------+ + Photoplethysmography: +---------+---------+ +Digits +Pressure + +---------+---------+ +R 1st toe+105 mm Hg+ +---------+---------+ +L 1st toe+109 mm Hg+ +---------+---------+ Prepared and electronically signed by Little Arcos 03/16/2020 17:49 Final Dictated: 03/16/2020 5:50 pm Dictating Physician: LITTLE ARCOS Signed Date and Time: 03/16/2020 5:50 pm Signed by: LITTLE ARCOS [facility] VL Venous Reflux Ultrasound [place] 03-16-2020 VL Venous Reflux Ultrasound Lower [place]rem Patient Name: KERMIT IGNACIO Ultrasound Exam Date/Time 03/16/2020 15:57:25 EDT Exam VL Venous Reflux US Lower Ext Bilateral Ordering Physician DAVID HOLLY Accession Number [id number] CPT4 Codes 08042 () Reason For Exam Varicose veins of left lower extremity with pain Report [facility] Bilateral Lower Extremity Venous Insufficiency Duplex Report Ordering Physician: David Holly MD Design Agent: Yvonne Murcia, T Erika Eaton T Interpreting Physician: Little Arcos Location: [address] Indications: Varicose veins. CRITICAL RESULTS: A critical finding, was reported to Arturo by Erika Eaton , on 03/16/2020 , at 03:23 PM. Correct read-back was verified. Conclusions 1. Acute superficial vein thrombosis noted in the left small saphenous vein. 2. Chronic superficial vein thrombosis noted in the right great saphenous vein. 3. Chronic superficial vein thrombosis noted in the left great saphenous vein. 4. Reflux noted in the right great saphenous vein. 5. Reflux noted in the left great saphenous vein and left accessory saphenous vein. History: Risk factors: Former tobacco use. Study data: Bilateral lower extremity venous insufficiency exam. Grayscale 2D imaging, color Doppler imaging, and spectral Doppler analysis. Location: Vascular laboratory. Procedure: A vascular evaluation was performed with the patient in the supine position. Images were obtained using a Terabitz E9 vascular ultrasound machine. Venous flow and imaging: + + ---+--------+ ------+ + +Location +Overall +Thrombus+Properties +Comments + + + ---+--------+ ------+ + +R CFV +Patent +--------+Normal phasicity; + + + + + +spontaneous; + + + + + +normal + + + + + +augmentation; + + + + + +compressible + + + + ---+--------+ ------+ + +R +Patent +--------+Compressible + + +saphenofemora+ + + + + +l junction + + + + + + + ---+--------+ ------+ + +R profunda +Patent +--------+Normal phasicity; + + +femoral + + +spontaneous; + + + + + +normal + + + + + +augmentation + + + + ---+--------+ ------+ + +R FV - prox. +Patent +--------+Compressible + + + + ---+--------+ ------+ + +R FV - mid +Patent +--------+Normal phasicity; + + + + + +spontaneous; + + + + + +normal + + + + + +augmentation; + + + + + +compressible + + + + ---+--------+ ------+ + +R FV - distal+Patent +--------+Compressible + + + + ---+--------+ ------+ + +R popliteal +Patent +--------+Normal phasicity; + + + + + +spontaneous; + + + + + +normal + + + + + +augmentation; + + + + + +compressible + + + + ---+--------+ ------+ + +R +Patent +--------+Compressible + + +gastrocnemius+ + + + + + + ---+--------+ ------+ + +R PTV +Patent +--------+Compressible + + + + ---+--------+ ------+ + +R peroneal +Patent +--------+Compressible + + + + ---+--------+ ------+ + +R soleal +Patent +--------+Compressible + + + + ---+--------+ ------+ + +R GSV +Partially +Chronic +Partially +Chronic SVT + + +occluded + +compressible +noted at + + + + + +distal calf. + + + ---+--------+ ------+ + +R SSV +Patent +--------+Compressible + + + + ---+--------+ ------+ + +L CFV +Patent +--------+Normal phasicity; + + + + + +spontaneous; + + + + + +normal + + + + + +augmentation; + + + + + +compressible + + + + ---+--------+ ------+ + +L +Patent +--------+Compressible + + +saphenofemora+ + + + + +l junction + + + + + + + ---+--------+ ------+ + +L profunda +Patent +--------+Normal phasicity; + + +femoral + + +spontaneous; + + + + + +normal + + + + + +augmentation + + + + ---+--------+ ------+ + +L FV - prox. +Patent +--------+Compressible + + + + ---+--------+ ------+ + +L FV - mid +Patent +--------+Normal phasicity; + + + + + +spontaneous; + + + + + +normal + + + + + +augmentation; + + + + + +compressible + + + + ---+--------+ ------+ + +L FV - distal+Patent +--------+Compressible + + + + ---+--------+ ------+ + +L popliteal +Patent +--------+Normal phasicity; + + + + + +spontaneous; + + + + + +normal + + + + + +augmentation; + + + + + +compressible + + + + ---+--------+ ------+ + +L +Patent +--------+Compressible + + +gastrocnemius+ + + + + + + ---+--------+ ------+ + +L PTV +Patent +--------+Compressible + + + + ---+--------+ ------+ + +L peroneal +Patent +--------+Compressible + + + + ---+--------+ ------+ + +L soleal +Patent +--------+Compressible + + + + ---+--------+ ------+ + +L GSV +Partially +Chronic +Partially +Chronic SVT + + +occluded + +compressible +noted + + + + + +throughout + + + + + +leg. + + + ---+--------+ ------+ + +L SSV +Totally +Acute +Noncompressible +Acute SVT + + +occluded + + +noted + + + + + +throughout + + + + + +ssv and + + + + + +branch. + + + ---+--------+ ------+ + Vein mapping: + +- + +-- + +Location +Diameter +Reflux time+Comments + + +AP* + + + + +- + +-- + +R CFV + +0 sec + + + +- + +-- + +R FV + +0 sec + + + +- + +-- + +R popliteal + +0 sec + + + +- + +-- + +R saph-femoral +7.40 mm +0 sec + + +junction + + + + + +- + +-- + +R GSV - prox. (thigh) +5.90 mm +2.11 sec + + + +- + +-- + +R GSV - mid (thigh) +6.80 mm +2.43 sec + + + +- + +-- + +R GSV - distal (thigh)+4.90 mm +1.21 sec + + + +- + +-- + +R GSV (knee) +4.40 mm +0 sec + + + +- + +-- + +R ASV (oriign) +4.10 mm +0 sec + + + +- + +-- + +R ASV - prox. (thigh) +1.70 mm +0 sec + + + +- + +-- + +R ASV - mid (thigh) +3.20 mm +0 sec + + + +- + +-- + +R ASV - distal (thigh)+1.70 mm +0 sec + + + +- + +-- + +R SSV - prox. (calf) +3.40 mm +0 sec + + + +- + +-- + +R SSV - mid (calf) + +0 sec + + + +- + +-- + +L CFV + +0.83 sec + + + +- + +-- + +L FV + +0 sec + + + +- + +-- + +L popliteal + +0 sec + + + +- + +-- + +L saph-femoral +10.10 mm +2.02 sec +Chronic SVT noted + +junction + + +throughout. + + +- + +-- + +L GSV - prox. (thigh) +7.50 mm +0.89 sec + + + +- + +-- + +L GSV - mid (thigh) +4.40 mm +2.08 sec + + + +- + +-- + +L GSV - distal (thigh)+8.90 mm +0 sec + + + +- + +-- + +L GSV (knee) +7.60 mm +0 sec + + + +- + +-- + +L GSV - distal (calf) +9.20 mm +0.45 sec + + + +- + +-- + +L ASV - prox. (thigh) +5.40 mm +0.32 sec + + + +- + +-- + +L ASV - mid (thigh) +4.10 mm +0.34 sec +Becomes superficial + + + + +and tortuous at mid + + + + +thigh. + + +- + +-- + +L SSV - prox. (calf) + + + Acute SVT throughout + + + + +small saphenous vein + + + + +and branch. + + +- + +-- + *Length measurements, e.g. diameters, are expressed in mm Prepared and electronically signed by Little Arcos 03/17/2020 09:36 Final Dictated: 03/17/2020 9:37 am Dictating Physician: LITTLE ARCOS Signed Date and Time: 03/17/2020 9:36 am Signed by: LITTLE ARCOS [facility] HGB A1C ([id number])Ordered By: S [employer]stem [employer] Server on 09-02-2018 HbA1c (Bld) [Mass fraction] 5.0 % Normal 4.8-5.6 [facility] Work Phone: Comment on above: . Prediabetes: 5.7 - 6.4 Diabetes: >6.4 Glycemic control for adults with diabetes: <7.0 PATIENT NOT FASTINGP ERFORMED BY: LabShriners Hospitals For ChildrenWbvxot0670 [facility] [id number] CALCIFIDIOL (87474) VIT D 25 Ordered By: Rice Cleaning Machine Tender on 06-20-2018 25-Hydroxyvitamin D2+25-Hydroxyvitamin D3 mass conc 36.7 ng/mL Normal 30.0-100.0 [facility] Work Phone: Comment on above: Vitamin D deficiency has been defined by the [place] of[place]icine and an Endocrine Society practice guideline as alevel of serum 25-OH vitamin D less than 20 ng/mL (1,2).The Endocrine Society went on to further define vitamin Dinsufficiency as a level between 21 and 29 ng/mL (2).1. IOM ([place] of Medicine). 2010. Dietary reference intakes for calcium and D. [place]: The National Academies Press.2. Sheryl MF, Driss [place], Dennis FIERRO, et al. Evaluation, treatment, and prevention of vitamin D deficiency: an Endocrine Society clinical practice guideline. JCEM. 2010; 96(7):1911-30. PATIENT WAS FASTINGP ERFORMED BY: [employer] [id number] BY: Awdio70 [place] [facility] [id number] CBC W/AUTO DIFF WBC (05447)O rdered By: Rice Cleaning Machine Tender on 06-20-2018 Basophils (Bld) [#/Vol] 0.1 {x10E3/uL} Normal 0.0-0.2 [facility] Work Phone: Comment on above: PATIENT WAS FASTINGP ERFORMED BY: [employer] [id number] BY: Awdio70 [facility] [id number] Basophils Auto #/vol (Bld) 0.1 {x10E3/uL} Normal 0.0-0.2 [facility] Work Phone: Basophils/100 WBC (Bld) 1 % Normal [facility] Work Phone: Comment on above: PATIENT WAS FASTINGP ERFORMED BY: [employer] [id number] BY: Awdio70 [facility] [id number] Basophils/100 WBC Auto (Bld) 1 % Normal [facility] Work Phone: Eosinophils (Bld) [#/Vol] 0.2 {x10E3/uL} Normal 0.0-0.4 [facility] Work Phone: Comment on above: PATIENT WAS FASTINGP ERFORMED BY: [employer] [id number] BY: CarJump Uuqsyr2200 [facility] [id number] Eosinophils Auto #/vol (Bld) 0.2 {x10E3/uL} Normal 0.0-0.4 [facility] Work Phone: Eosinophils/100 WBC (Bld) 3 % Normal [facility] Work Phone: Comment on above: PATIENT WAS FASTINGP ERFORMED BY: [employer] [id number] BY: UNIFi Softwarelin6370 [facility] [id number] Eosinophils/100 WBC Auto (Bld) 3 % Normal [facility] Work Phone: Erythrocyte distribution width (RBC) [Ratio] 14.0 % Normal 12.3-15.4 [facility] Work Phone: Comment on above: PATIENT WAS FASTINGP ERFORMED BY: [employer] [id number] BY: Car[employer]ump Fsxoeb3498 [facility] [id number] Erythrocyte distribution width Auto Ratio (RBC) 14.0 % Normal 12.3-15.4 [facility] Work Phone: Hematocrit (Bld) [Volume fraction] 45.3 % Normal 37.5-51.0 [facility] Work Phone: Comment on above: PATIENT WAS FASTINGP ERFORMED BY: [employer] [address] [id number] BY: Car[employer] Nkrmzp6601 [facility] [id number] Hematocrit Auto Volume Fraction (Bld) 45.3 % Normal 37.5-51.0 Comprehens [facility] Work Phone: Hemoglobin mass conc (Bld) 15.1 g/dL Normal 13.0-17.7 [facility] Work Phone: Comment on above: PATIENT WAS FASTINGP ERFORMED BY: [address] [id number] BY: [facility]6[address]ante RoadDublin [place] [id number] Immature granulocytes #/vol (Bld) 0.0 {x10E3/uL} Normal 0.0-0.1 [facility] Work Phone: Comment on above: PATIENT WAS FASTINGP ERFORMED BY: [address] [id number] BY: LabMymichigan Medical [facility] Gladwin6[address] RoadDublin [place] [id number] Immature granulocytes/100 WBC (Bld) 0 % Normal [facility] Work Phone: Comment on above: PATIENT WAS FASTINGP ERFORMED BY: [address] [id number] BY: LabMymichigan Medical [facility] Gladwin6[address] RoadDublin [place] [id number] Lymphocytes (Bld) [#/Vol] 2.2 {x10E3/uL} Normal 0.7-3.1 [facility] Work Phone: Comment on above: PATIENT WAS FASTINGP ERFORMED BY: [address] [id number] BY: LabAdrian Ville 3427870 Inf[address] RoadDuin [place] [id number] Lymphocytes Auto #/vol (Bld) 2.2 {x10E3/uL} Normal 0.7-3.1 [facility] Work Phone: Lymphocytes/100 WBC (Bld) 33 % Normal [facility] Work Phone: Comment on above: PATIENT WAS FASTINGP ERFORMED BY: [address] [id number] BY: LabSaint [facility] Mqquwv1559 [address] RoadDublin [place] [id number] Lymphocytes/100 WBC Auto (Bld) 33 % Normal [facility] Work Phone: MCH (RBC) [Entitic mass] 30.7 pg Normal 26.6-33.0 [facility] Work Phone: Comment on above: PATIENT WAS FASTINGP ERFORMED BY: [employer] [id number] BY: Awdio70 [facility] [id number] MCH Auto Entitic mass (RBC) 30.7 pg Normal 26.6-33.0 [facility] Work Phone: MCHC (RBC) [Mass/Vol] 33.3 g/dL Normal 31.5-35.7 [facility] Work Phone: Comment on above: PATIENT WAS FASTINGP ERFORMED BY: [employer] [id number] BY: Awdio70 [facility] [id number] MCHC Auto mass conc (RBC) 33.3 g/dL Normal 31.5-35.7 [facility] Work Phone: MCV (RBC) [Entitic vol] 92 fL Normal 79-97 [facility] Work Phone: Comment on above: PATIENT WAS FASTINGP ERFORMED BY: [employer] [id number] BY: Awdio70 [facility] [id number] MCV Auto Entitic volume (RBC) 92 fL Normal 79-97 [facility] Work Phone: Monocytes (Bld) [#/Vol] 0.5 {x10E3/uL} Normal 0.1-0.9 [facility] Work Phone: Comment on above: PATIENT WAS FASTINGP ERFORMED BY: [employer] [address] [id number] BY: Awdio70 [facility] [id number] Monocytes Auto #/vol (Bld) 0.5 {x10E3/uL} Normal 0.1-0.9 [facility] Work Phone: Monocytes/100 WBC (Bld) 8 % Normal [facility] Work Phone: Comment on above: PATIENT WAS FASTINGP ERFORMED BY: [employer] [id number] BY: Greenlight PlanetTimothy Ville [id number] [facility] [id number] Monocytes/100 WBC Auto (Bld) 8 % Normal [facility] Work Phone: Neutrophils (Bld) [#/Vol] 3.8 {x10E3/uL} Normal 1.4-7.0 [facility] Work Phone: Comment on above: PATIENT WAS FASTINGP ERFORMED BY: [employer] [id number] BY: Greenlight PlanetInspira Medical Center Mullica HillMnwbbc5977 [facility] [id number] Neutrophils Auto #/vol (Bld) 3.8 {x10E3/uL} Normal 1.4-7.0 [facility] Work Phone: Neutrophils/100 WBC (Bld) 55 % Normal [facility] Work Phone: Comment on above: PATIENT WAS FASTINGP ERFORMED BY: [employer] Ghetvhypso[address] [id number] BY: Greenlight PlanetInspira Medical Center Mullica HillHewndy3983 [facility] [id number] Neutrophils/100 WBC Auto (Bld) 55 % Normal [facility] Work Phone: Platelets (Bld) [#/Vol] 222 {x10E3/uL} Normal 150-379 [facility] Work Phone: Comment on above: PATIENT WAS FASTINGP ERFORMED BY: [employer] Planet[address] [id number] BY: [employer] Njznaf1479 [facility] [id number] Platelets Auto #/vol (Bld) 222 {x10E3/uL} Normal 150-379 [facility] Work Phone: RBC (Bld) [#/Vol] 4.92 {x10E6/uL} Normal 4.14-5.80 [facility] Internal [facility] Work Phone: Comment on above: PATIENT WAS FASTINGP ERFORMED BY: Scribz Jmcfqmhdew[address] [id number] BY: [employer] Jeklqp5563 [facility] [id number] RBC Auto #/vol (Bld) 4.92 {x10E6/uL} Normal 4.14-5.80 [facility] Work Phone: WBC (Bld) [#/Vol] 6.8 {x10E3/uL} Normal 3.4-10.8 [facility] Work Phone: Comment on above: PATIENT WAS FASTINGP ERFORMED BY: [employer] [id number] BY: Greenlight PlanetTimothy Ville [id number] [facility] [id number] WBC Auto #/vol (Bld) 6.8 {x10E3/uL} Normal 3.4-10.8 [facility] Work Phone: LIPOPROTEIN, BLD, BY NMR ([id number])Ordered By: Rice Cleaning Machine Tender on 06-20-2018 Cholesterol in HDL mass conc 28 mg/dL Abnormal [facility] Work Phone: Comment on above: PATIENT WAS FASTINGP ERFORMED BY: Scribz[address] [id number] BY: Greenlight PlanetInspira Medical Center Mullica HillBnzipl9376 [facility] [id number] Cholesterol in LDL mass conc 97 mg/dL Normal 0-99 [facility] Work Phone: Comment on above: . Optimal < 100 Abov e optimal 100 - 129 Borderline 130 - 159 High 160 - 189 Very high > 189 .LDL-C is inaccurate if patient is non-fasting. PATIENT WAS FASTINGP ERFORMED BY: ADVANC[employer] CREDIT TECHNOLOGIESton1447 [facility] [id number] BY: Awdio70 [facility] [id number] Cholesterol mass conc 184 mg/dL Normal 100-199 [facility] prehensive [facility] Work Phone: Comment on above: PATIENT WAS FASTINGP ERFORMED BY: [employer] [id number] BY: [employer]ellar [address] BioSigniaNovant Health Presbyterian Medical Center [id number] Lipoprotein.alpha molar conc 24.0 umol/L Abnormal [facility] Work Phone: Comment on above: PATIENT WAS FASTINGP ERFORMED BY: [employer] [id number] BY: Vivorteox BioSigniaNovant Health Presbyterian Medical Center [id number] Lipoprotein.beta.subp article Entitic length 19.6 nm Normal [facility] Work Phone: Comment on above: INTERPRETATIVE INFORMATION PARTICLE CONCENTRATION AND SIZE <--Lower CVD Risk Higher CVD Risk--> LDL AND HDL PARTICLES Percentile in Reference Population HDL-P (total) High 75th 50th 25th Low >34.9 34.9 30.5 26.7 <26.7 . Small LDL-P Low 25th 50th 75th High <117 117 527 839 >839 . LDL Size <-Large (Pattern A)-> <-Small (Pattern B)-> 23.0 20.6 20.5 19.0 Small LDL-P and LDL Size are associated with CVD risk, but not afterLDL-P is taken into account. .These assays were developed and their performance characteristicsdetermined by globa.ly. These assays have not been cleared by [place] Food and Drug Administration. The clinical utility of theselaboratory values have not been fully established. PATIENT WAS FASTINGP ERFORMED BY: SumZero [address] [id number] BY: Chamate70 M2TECHin [place] [id number] Lipoprotein.beta.subp article molar conc 1669 nmol/L Abnormal [facility] Work Phone: Comment on above: Low < 1000 Moderate 1000 - 1299 Borderline-High 1300 - 1599 High 1600 - 2000 Very High > 2000 PATIENT WAS FASTINGP ERFORMED BY: [employer] [address] [id number] BY: Green[employer] Planet Pnfmog5819 M2TECHNovant Health Presbyterian Medical Center [id number] Lipoprotein.beta.subp article.small molar conc 1379 nmol/L Abnormal [facility] Work Phone: Comment on above: PATIENT WAS FASTINGP ERFORMED BY: [employer] [id number] BY: UNIFi Softwarelin6370 M2TECHNovant Health Presbyterian Medical Center [id number] Triglyceride mass conc 297 mg/dL Abnormal 0-149 [facility] Work Phone: Comment on above: PATIENT WAS FASTINGP ERFORMED BY: [employer] [address] [id number] BY: [employer] Tvaygr9654 [address] Baby World LanguageAtrium Health [facility] Baptist [id number] METABOLIC PANEL, COMPREHENSI VE ([id number])Ordered By: Rice Cleaning Machine Tender on 06-20-2018 Albumin mass conc 4.3 g/dL Normal 3.5-5.5 Compreh ensive [facility] Work Phone: Comment on above: PATIENT WAS FASTINGP ERFORMED BY: LabCo[address] [id number] BY: [facility] Icxoxb6448 [facility] [id number] Albumin/Globulin mass ratio 1.7 {ratio} Normal 1.2-2.2 [facility] Work Phone: Comment on above: PATIENT WAS FASTINGP ERFORMED BY: [facility] [address] [id number] BY: [facility] Mgmvvi8023 Inf[address] RoadAtrium Health Wake [facility] Baptist [id number] ALP enzyme act/vol 93 [iU]/L Normal 39-117 [facility] Internal [facility] Work Phone: Comment on above: PATIENT WAS FASTINGP ERFORMED BY: LabCo[address] [id number] BY: [facility] Edoqcy7013 [address] [facility] [id number] ALT enzyme act/vol 20 [iU]/L Normal 0-44 [facility] Work Phone: Comment on above: PATIENT WAS FASTINGP ERFORMED BY: Lab[address] [id number] BY: [facility] Uoispl9742 [address] [facility] [id number] AST enzyme act/vol 18 [iU]/L Normal 0-40 [facility] Work Phone: Comment on above: PATIENT WAS FASTINGP ERFORMED BY: LabCo[address] [id number] BY: LabCoInspira Medical Center Mullica HillMkppyv3066 [address] [facility] [id number] Bilirubin mass conc 0.5 mg/dL Normal 0.0-1.2 [facility] Internal Medicine Work Phone: Comment on above: PATIENT WAS FASTINGP ERFORMED BY: LabCo[address] [id number] BY: [facility] Mcjhlr8006 [address] RoadDublin [place] [id number] Calcium mass conc 8.8 mg/dL Normal 8.7-10.2 Compreh ensive [facility] Medicine Work Phone: Comment on above: PATIENT WAS FASTINGP ERFORMED BY: LabCo[address] [id number] BY: EVELIN [facility] Mhgafp7402 [address] Roadblin [place] [id number] Chloride molar conc 105 mmol/L Normal 96-106 Compr ehensive Internal Medicine Work Phone: Comment on above: PATIENT WAS FASTINGP ERFORMED BY: LabSocialWire[address] [id number] BY: EVELIN [facility] Sxibbj3458 Inf[address] RoadAtrium Health [facility] Baptist [id number] CO2 molar conc 21 mmol/L Normal 20-29 Comprehens [facility] Work Phone: Comment on above: PATIENT WAS FASTINGP ERFORMED BY: LabSocialWire[address] [id number] BY: EVELIN [facility] Pzlzba4993 [address] [facility] [id number] Creatinine mass conc 0.98 mg/dL Normal 0.76-1.27 Comp rehensive Internal Medicine Work Phone: Comment on above: PATIENT WAS FASTINGP ERFORMED BY: Lab[address] [id number] BY: LabCoTimothy Ville [id number] [address] [facility] [id number] GFR/1.73 sq M predicted among blacks CKD-EPI vol rate/area (S/P/Bld) 99 mL/min/1.73 Normal Comprehensiv e Internal Medicine Work Phone: Comment on above: PATIENT WAS FASTINGP ERFORMED BY: Lab[address] [id number] BY: [facility] Tnhfgk4040 Infante RoadAtrium Health [facility] Baptist [id number] GFR/1.73 sq M predicted among non-blacks CKD-EPI vol rate/area (S/P/Bld) 85 mL/min/1.73 Normal [facility] Work Phone: Comment on above: PATIENT WAS FASTINGP ERFORMED BY: [employer] Planet[address] [id number] BY: [facility] Qokssd8110 [facility] [id number] Globulin (S) [Mass/Vol] 2.5 g/dL Normal 1.5-4.5 [facility] Work Phone: Comment on above: PATIENT WAS FASTINGP ERFORMED BY: Greenlight [address] [id number] BY: LabSocialWire Mfdacu7927 [facility] [id number] Globulin Calculated mass conc (S) 2.5 g/dL Normal 1.5-4.5 [facility] Work Phone: Glucose mass conc 86 mg/dL Normal 65-99 Compreh ensive Internal Medicine Work Phone: Comment on above: PATIENT WAS FASTINGP ERFORMED BY: Greenlight [address] [id number] BY: LabSocialWire Uxpdrz0402 [facility] [id number] Potassium molar conc 4.3 mmol/L Normal 3.5-5.2 Comp rehensive Internal Medicine Work Phone: Comment on above: PATIENT WAS FASTINGP ERFORMED BY: Greenlight [address] [id number] BY: LabSocialWire Nkuraq4384 [facility] [id number] Protein mass conc 6.8 g/dL Normal 6.0-8.5 Compreh ensive Internal Medicine Work Phone: Comment on above: PATIENT WAS FASTINGP ERFORMED BY: Greenlight [address] [id number] BY: [facility] Gladwin6370 [facility] [id number] Sodium molar conc 143 mmol/L Normal 134-144 Compreh ensive Internal Medicine Work Phone: Comment on above: PATIENT WAS FASTINGP ERFORMED BY: LabCo[address] [id number] BY: LabCo Boxfpx8291 [address] [facility] [id number] Urea nitrogen mass conc 11 mg/dL Normal 6-24 [facility] Work Phone: Comment on above: PATIENT WAS FASTINGP ERFORMED BY: Greenlight [address] [id number] BY: LabCo Lyjppv7980 [facility] [id number] Urea nitrogen/Creatinine mass ratio 11 mg/mg Normal 9-20 [facility] Work Phone: Comment on above: PATIENT WAS FASTINGP ERFORMED BY: Greenlight [address] [id number] BY: LabCoInspira Medical Center Mullica HillQupyss3838 [facility] [id number] MICROALBUMINOrdered By: Syst em Water Server on 06-20-2018 Albumin DL <= 20 mg/L mass conc (U) 6.3 ug/mL Normal [facility] Work Phone: Comment on above: PATIENT WAS FASTINGP ERFORMED BY: Greenlight [address] [id number] BY: LabMymich[facility] Gladwin6370 [facility] [id number] Albumin/Creatinine mass ratio (U) 4.4 {mg/g_creat} Normal 0.0-30.0 [facility] Work Phone: Comment on above: Normal: 0.0 - 30.0 A lbuminuria: 31.0 - 300.0 Clinical albuminuria: >300.0 PATIENT WAS FASTINGP ERFORMED BY: Greenlight [address] [id number] BY: EVELIN Greenlight PlanetInspira Medical Center Mullica HillUhgiqs3878 [facility] [id number] Creatinine mass conc (U) 142.9 mg/dL Normal [facility] Work Phone: Comment on above: PATIENT WAS FASTINGP ERFORMED BY: Greenlight [address] [id number] BY: Greenlight PlanetInspira Medical Center Mullica HillGiozif3364 [facility] [id number] Microscopic ExaminationOrder ed By: Rice Cleaning Machine Tender on 06-20-2018 Bacteria LM.HPF #/area (Urine sed) None seen Normal [facility] Work Phone: Casts LM Nom (Urine sed) Hyaline casts Normal [facility] Work Phone: Casts LM Ql (Urine sed) Present Abnormal [facility] Work Phone: Epithelial cells LM.HPF #/area (Urine sed) 0-10 Normal 0 - 10 [facility] Work Phone: Mucus LM Ql (Urine sed) Present Normal [facility] Work Phone: RBC LM.HPF #/area (Urine sed) 0-2 Normal 0 - 2 [facility] Work Phone: WBC LM.HPF #/area (Urine sed) 0-5 Normal 0 - 5 [facility] Work Phone: TSH ([id number])Ordered By: Syste m Water Server on 06-20-2018 Thyrotropin Qn 0.900 {uIU/mL} Normal 0.450-4.50 0 [facility] Work Phone: Comment on above: PATIENT WAS FASTINGP ERFORMED BY: Greenlight [address] [id number] BY: Greenlight PlanetInspira Medical Center Mullica HillUtopus4849 [facility] [id number] URINALYSIS, W/ MICRO ([id number]) Ordered By: Rice Cleaning Machine Tender on 06-20-2018 Appearance Nom (U) Clear Normal Compre hensive Internal Medicine Work Phone: Comment on above: PATIENT WAS FASTINGP ERFORMED BY: Lab[address] [id number] BY: EVELIN [facility] Apakyx5817 [address] RoadDublin [place] [id number] Bilirubin Ql (U) Negative Normal Comprehe nsive Internal Medicine Work Phone: Comment on above: PATIENT WAS FASTINGP ERFORMED BY: [address] [id number] BY: EVELIN [facility] Lvbhxa8925 [address] RoadDublin [place] [id number] Color Nom (U) Yellow Normal Comprehensi ve Internal Medicine Work Phone: Comment on above: PATIENT WAS FASTINGP ERFORMED BY: [address] [id number] BY: EVELIN [facility] Qodttk6027 [address] RoadDublin [place] [id number] Glucose Ql (U) Negative Normal Comprehens dale [facility] Work Phone: Comment on above: PATIENT WAS FASTINGP ERFORMED BY: [address] [id number] BY: EVELIN [facility] Xjuasz6217 [address] RoadDublin [place] [id number] Hemoglobin Ql (U) Negative Normal Compreh ensive Internal Medicine Work Phone: Comment on above: PATIENT WAS FASTINGP ERFORMED BY: [address] [id number] BY: EVELIN [facility] Kcquwx3727 [address] RoadDublin [place] [id number] Hemoglobin Test strip Ql (U) Negative Normal [facility] Work Phone: Ketones Ql (U) Negative Normal Comprehens dale [facility] Work Phone: Comment on above: PATIENT WAS FASTINGP ERFORMED BY: Lab[address] [id number] BY: EVELIN [facility] Lrbrus5613 [address] RoadDublin [place] [id number] Leukocyte esterase Test strip Ql (U) Negative Normal [facility] Work Phone: Comment on above: PATIENT WAS FASTINGP ERFORMED BY: Greenlight [address] [id number] BY: [facility] Ssvtuy3842 [address] RoadDublin [place] [id number] Microscopic observation LM Nom (Urine sed) See below: Normal [facility] Work Phone: Comment on above: Microscopic was radha cated and was performed. PATIENT WAS FASTINGP ERFORMED BY: Greenlight [address] [id number] BY: EVELIN [facility] Asgtlf8753 [address] RoadDublin [place] [id number] Microscopic observation LM Nom (Urine sed) MICRON Normal [facility] Work Phone: Comment on above: Microscopic follows if indicated. PATIENT WAS FASTINGP ERFORMED BY: Brainrack[address] [id number] BY: [facility]Co Hletaf6671 [address] RoadDublin [place] [id number] Nitrite Ql (U) Negative Normal Comprehens dale [facility] Work Phone: Comment on above: PATIENT WAS FASTINGP ERFORMED BY: Brainrack[address] [id number] BY: [facility] Tjoeuu8340 [address] RoadDublin [place] [id number] Nitrite Test strip Ql (U) Negative Normal [facility] Work Phone: pH (U) 6.0 [pH] Normal 5.0-7.5 [facility] Work Phone: Comment on above: PATIENT WAS FASTINGP ERFORMED BY: Brainrack[address] [id number] BY: [facility]Co Feowsy6819 [address] RoadDublin [place] [id number] pH Test strip (U) 6.0 [pH] Normal 5.0-7.5 Compreh ensive Internal Medicine Work Phone: Protein Ql (U) Negative Normal Comprehens dale [facility] Work Phone: Comment on above: PATIENT WAS FASTINGP ERFORMED BY: Greenlight [address] [id number] BY: EVELIN BrainrackCoInspira Medical Center Mullica HillWymawq8283 [address] RoadAtrium Health [facility] [id number] Protein Test strip Ql (U) Negative Normal [facility] Work Phone: Specific gravity Relative Density (U) 1.021 1 Normal 1.005-1.03 0 [facility] Work Phone: Comment on above: PATIENT WAS FASTINGP ERFORMED BY: Greenlight [address] [id number] BY: EVELIN Greenlight PlanetInspira Medical Center Mullica HillWpwcbm4622 [facility] [id number] Urobilinogen Test strip mass conc (U) 1.0 mg/dL Normal 0.2-1.0 Comprehensiv e Internal Medicine Work Phone: Comment on above: PATIENT WAS FASTINGP ERFORMED BY: Greenlight [address] [id number] BY: EVELIN BrainrackMymichigan Medical Center Gladwin6370 [facility] [id number] CBC W/AUTO DIFF WBC ([id number])O rdered By: Rice Cleaning Machine Tender on 01-14-2016 Basophils (Bld) [#/Vol] 0.1 {x10E3/uL} Normal 0.0-0.2 [facility] Work Phone: Comment on above: PATIENT WAS FASTINGP ERFORMED BY: EVELIN [facility] Qjsrdw6880 [facility] [id number] Information: [id number] Basophils Auto #/vol (Bld) 0.1 {x10E3/uL} Normal 0.0-0.2 [facility] Work Phone: Basophils/100 WBC (Bld) 1 % Normal [facility] Work Phone: Comment on above: PATIENT WAS FASTINGP ERFORMED BY: [facility]6370 [facility] [id number] Information: [id number] Basophils/100 WBC Auto (Bld) 1 % Normal [facility] Work Phone: Eosinophils (Bld) [#/Vol] 0.3 {x10E3/uL} Normal 0.0-0.4 [facility] Work Phone: Comment on above: PATIENT WAS FASTINGP ERFORMED BY: [place] 5285870 [facility] [id number] Information: [id number] Eosinophils Auto #/vol (Bld) 0.3 {x10E3/uL} Normal 0.0-0.4 [facility] Work Phone: Eosinophils/100 WBC (Bld) 4 % Normal [facility] Work Phone: Comment on above: PATIENT WAS FASTINGP ERFORMED BY: [address] [id number] Information: [id number] Eosinophils/100 WBC Auto (Bld) 4 % Normal [facility] Work Phone: Erythrocyte distribution width (RBC) [Ratio] 14.3 % Normal 12.3-15.4 [facility] Work Phone: Comment on above: PATIENT WAS FASTINGP ERFORMED BY: [place] 5285870 [facility] [id number] Information: [id number] Erythrocyte distribution width Auto Ratio (RBC) 14.3 % Normal 12.3-15.4 [facility] Work Phone: Hematocrit (Bld) [Volume fraction] 47.3 % Normal 37.5-51.0 [facility] Work Phone: Comment on above: PATIENT WAS FASTINGP ERFORMED BY: [place] 5285870 [facility] [id number] Information: [id number] Hematocrit Auto Volume Fraction (Bld) 47.3 % Normal 37.5-51.0 [facility] Internal Medicine Work Phone: Hemoglobin mass conc (Bld) 16.2 g/dL Normal 12.6-17.7 [facility] Work Phone: Comment on above: PATIENT WAS FASTINGP ERFORMED BY: [address] [id number] Information: [id number] Immature granulocytes #/vol (Bld) 0.0 {x10E3/uL} Normal 0.0-0.1 [facility] Work Phone: Comment on above: PATIENT WAS FASTINGP ERFORMED BY: [address] [id number] Information: [id number] Immature granulocytes/100 WBC (Bld) 0 % Normal [facility] Work Phone: Comment on above: PATIENT WAS FASTINGP ERFORMED BY: [address] [id number] Information: [id number] Lymphocytes (Bld) [#/Vol] 2.4 {x10E3/uL} Normal 0.7-3.1 [facility] Work Phone: Comment on above: PATIENT WAS FASTINGP ERFORMED BY: [address] [id number] Information: [id number] Lymphocytes Auto #/vol (Bld) 2.4 {x10E3/uL} Normal 0.7-3.1 [facility] Work Phone: Lymphocytes/100 WBC (Bld) 34 % Normal [facility] Work Phone: Comment on above: PATIENT WAS FASTINGP ERFORMED BY: [place] 5285870 [facility] [id number] Information: [id number] Lymphocytes/100 WBC Auto (Bld) 34 % Normal [facility] Work Phone: MCH (RBC) [Entitic mass] 32.5 pg Normal 26.6-33.0 [facility] Work Phone: Comment on above: PATIENT WAS FASTINGP ERFORMED BY: EVELIN [place] 9207670 [facility] [id number] Information: [id number] MCH Auto Entitic mass (RBC) 32.5 pg Normal 26.6-33.0 [facility] Work Phone: MCHC (RBC) [Mass/Vol] 34.2 g/dL Normal 31.5-35.7 [facility] Internal [facility] Work Phone: Comment on above: PATIENT WAS FASTINGP ERFORMED BY: [address] [id number] Information: [id number] MCHC Auto mass conc (RBC) 34.2 g/dL Normal 31.5-35.7 [facility] Internal Medicine Work Phone: MCV (RBC) [Entitic vol] 95 fL Normal 79-97 [facility] Work Phone: Comment on above: PATIENT WAS FASTINGP ERFORMED BY: EVELIN [place] 9207670 [facility] [id number] Information: [id number] MCV Auto Entitic volume (RBC) 95 fL Normal 79-97 [facility] Work Phone: Monocytes (Bld) [#/Vol] 0.6 {x10E3/uL} Normal 0.1-0.9 [facility] Work Phone: Comment on above: PATIENT WAS FASTINGP ERFORMED BY: [facility]6370 [facility] [id number] Information: [id number] Monocytes Auto #/vol (Bld) 0.6 {x10E3/uL} Normal 0.1-0.9 [facility] Work Phone: Monocytes/100 WBC (Bld) 8 % Normal [facility] Work Phone: Comment on above: PATIENT WAS FASTINGP ERFORMED BY: [facility]6370 [facility] [id number] Information: [id number] Monocytes/100 WBC Auto (Bld) 8 % Normal [facility] Work Phone: Neutrophils (Bld) [#/Vol] 3.6 {x10E3/uL} Normal 1.4-7.0 [facility] Work Phone: Comment on above: PATIENT WAS FASTINGP ERFORMED BY: [place] 5285870 [facility] [id number] Information: [id number] Neutrophils Auto #/vol (Bld) 3.6 {x10E3/uL} Normal 1.4-7.0 [facility] Work Phone: Neutrophils/100 WBC (Bld) 53 % Normal [facility] Work Phone: Comment on above: PATIENT WAS FASTINGP ERFORMED BY: EVELIN [place] 9207670 [facility] [id number] Information: [id number] Neutrophils/100 WBC Auto (Bld) 53 % Normal [facility] Work Phone: Platelets (Bld) [#/Vol] 201 {x10E3/uL} Normal 150-379 [facility] Work Phone: Comment on above: PATIENT WAS FASTINGP ERFORMED BY: [place] 5285870 [facility] [id number] Information: [id number] Platelets Auto #/vol (Bld) 201 {x10E3/uL} Normal 150-379 [facility] Work Phone: RBC (Bld) [#/Vol] 4.99 {x10E6/uL} Normal 4.14-5.80 [facility] Internal Medicine Work Phone: Comment on above: PATIENT WAS FASTINGP ERFORMED BY: [place] 5285870 [facility] [id number] Information: [id number] RBC Auto #/vol (Bld) 4.99 {x10E6/uL} Normal 4.14-5.80 [facility] Work Phone: WBC (Bld) [#/Vol] 6.9 {x10E3/uL} Normal 3.4-10.8 [facility] prehensive Internal Medicine Work Phone: Comment on above: PATIENT WAS FASTINGP ERFORMED BY: EVELIN [employer] Planet Ysbupl0866 [address] Baby World LanguageAtrium Health [facility] [id number] Information: [id number] WBC Auto #/vol (Bld) 6.9 {x10E3/uL} Normal 3.4-10.8 [facility] Work Phone: LIPID PANEL ([id number])Ordered B y: Rice Cleaning Machine Tender on 01-14-2016 Cholesterol in HDL mass conc 32 mg/dL Abnormal [facility] Work Phone: Comment on above: According to ATP-III Guidelines, HDL-C >59 mg/dL is considered anegative risk factor for CHD. PATIENT WAS FASTINGP ERFORMED BY: EVELIN Ubidyne6370 [employer] SolarAtrium Health [facility] Baptist [id number]; non-emergent till apt Cholesterol in LDL mass conc 112 mg/dL Abnormal 0-99 [facility] Work Phone: Comment on above: PATIENT WAS FASTINGP ERFORMED BY: EVELIN [employer]light Planet Cetykb4709 [facility] [id number]; non-emergent till apt Cholesterol in LDL/Cholesterol in HDL mass ratio 3.5 {ratio_units} Normal 0.0-3.6 [facility] Work Phone: Comment on above: LDL/HDL Ratio Men Wo men 1/2 Avg.Risk 1.0 1.5 Avg.Risk 3.6 3.2 2X Avg.Risk 6.2 5.0 3X Avg.Risk 8.0 6.1 PATIENT WAS FASTINGP ERFORMED BY: EVELIN Ubidyne6[address] [facility] World LanguageAtrium Health [facility] [id number]; non-emergent till apt Cholesterol in VLDL mass conc 47 mg/dL Abnormal 5-40 [facility] Work Phone: Comment on above: PATIENT WAS FASTINGP ERFORMED BY: EVELIN [facility] Zsfbdn0789 [address] RoadDublin [place] [id number]; non-emergent till apt Cholesterol mass conc 191 mg/dL Normal 100-199 Com prehensive Internal Medicine Work Phone: Comment on above: PATIENT WAS FASTINGP ERFORMED BY: EVELIN [facility] Yatsmz4935 [address] RoadDublin [place] [id number]; non-emergent till apt Triglyceride mass conc 234 mg/dL Abnormal 0-149 [facility] Work Phone: Comment on above: PATIENT WAS FASTINGP ERFORMED BY: EVELIN [facility] Dfgdvq8543 [address] RoadDublin [place] [id number]; non-emergent till apt METABOLIC PANEL, COMPREHENSI VE ([id number])Ordered By: Rice Cleaning Machine Tender on 01-14-2016 Albumin mass conc 4.3 g/dL Normal 3.5-5.5 Compreh [facility] Internal Medicine Work Phone: Comment on above: PATIENT WAS FASTINGP ERFORMED BY: EVELIN [facility] Njysys1382 [address] RoadDublin [place] [id number] Albumin/Globulin mass ratio 1.8 {ratio} Normal 1.1-2.5 [facility] Internal Medicine Work Phone: Comment on above: PATIENT WAS FASTINGP ERFORMED BY: EVELIN [facility] Lpplki9369 [address] RoadDublin [place] [id number] ALP enzyme act/vol 81 [iU]/L Normal 39-117 [facility] Internal Medicine Work Phone: Comment on above: PATIENT WAS FASTINGP ERFORMED BY: EVELIN [facility] Ucozyj2965 [address] RoadDublin [place] [id number] ALT enzyme act/vol 27 [iU]/L Normal 0-44 [facility] Internal Medicine Work Phone: Comment on above: PATIENT WAS FASTINGP ERFORMED BY: EVELIN [facility] Ccjjtu4898 [address] RoadDublin [place] [id number] AST enzyme act/vol 22 [iU]/L Normal 0-40 Compre hensive Internal Medicine Work Phone: Comment on above: PATIENT WAS FASTINGP ERFORMED BY: EVELIN [facility] Hilkuu7558 [address] [facility] Hospitalin [place] [id number] Bilirubin mass conc 0.2 mg/dL Normal 0.0-1.2 Compr ensive Internal Medicine Work Phone: Comment on above: PATIENT WAS FASTINGP ERFORMED BY: EVELIN [facility] Aqnqsl8872 [address] [facility] [id number] Calcium mass conc 9.2 mg/dL Normal 8.7-10.2 Compreh [facility] Internal Medicine Work Phone: Comment on above: PATIENT WAS FASTINGP ERFORMED BY: EVELIN LabCoflorentin WoodSjvlib3289 [address] [facility] [id number] Chloride molar conc 104 mmol/L Normal 97-108 Compr [facility] Internal Medicine Work Phone: Comment on above: PATIENT WAS FASTINGP ERFORMED BY: EVELIN [facility] Fbvgnp0859 [facility] [id number] CO2 molar conc 25 mmol/L Normal 18-29 Comprehens [place] Internal Medicine Work Phone: Comment on above: PATIENT WAS FASTINGP ERFORMED BY: EVELIN LabCoflorentin WoodYvpvzm6497 [facility] [id number] Creatinine mass conc 0.95 mg/dL Normal 0.76-1.27 Comp [facility] Internal Medicine Work Phone: Comment on above: PATIENT WAS FASTINGP ERFORMED BY: CB [facility] Vipalt2797 [address] [facility] [id number] GFR/1.73 sq M predicted among blacks CKD-EPI vol rate/area (S/P/Bld) 104 mL/min/1.73 Normal Comprehensiv e Internal Medicine Work Phone: Comment on above: PATIENT WAS FASTINGP ERFORMED BY: CB [facility] Vdpjgj5161 [address] [facility] [id number] GFR/1.73 sq M predicted among non-blacks CKD-EPI vol rate/area (S/P/Bld) 90 mL/min/1.73 Normal [facility] Work Phone: Comment on above: PATIENT WAS FASTINGP ERFORMED BY: EVELIN [facility] Xxlshm2477 [address] Roadblin [place] [id number] Globulin (S) [Mass/Vol] 2.4 g/dL Normal 1.5-4.5 [facility] Work Phone: Comment on above: PATIENT WAS FASTINGP ERFORMED BY: CB [facility] Huszki7141 [address] Roadblin [place] [id number] Globulin Calculated mass conc (S) 2.4 g/dL Normal 1.5-4.5 [facility] Work Phone: Glucose mass conc 75 mg/dL Normal 65-99 Compreh ensive Internal Medicine Work Phone: Comment on above: PATIENT WAS FASTINGP ERFORMED BY: EVELIN [facility] Mumgvk1644 [address] [facility] [place] [id number] Potassium molar conc 5.0 mmol/L Normal 3.5-5.2 Comp rehensive Internal Medicine Work Phone: Comment on above: PATIENT WAS FASTINGP ERFORMED BY: EVELIN [facility] Yzqlcs6261 [address] [facility]in [place] [id number] Protein mass conc 6.7 g/dL Normal 6.0-8.5 Compreh ensive Internal Medicine Work Phone: Comment on above: PATIENT WAS FASTINGP ERFORMED BY: EVELIN [facility] Xxaxss9655 [address] [facility]in [place] [id number] Sodium molar conc 144 mmol/L Normal 134-144 Compreh ensive Internal Medicine Work Phone: Comment on above: PATIENT WAS FASTINGP ERFORMED BY: CB [facility] Okfvqb7948 [address] [facility]in [place] [id number] Urea nitrogen mass conc 12 mg/dL Normal 6-24 [facility] Work Phone: Comment on above: PATIENT WAS FASTINGP ERFORMED BY: EVELIN [facility] Dxjymi6567 [address] Roadblin [place] [id number] Urea nitrogen/Creatinine mass ratio 13 mg/mg Normal 9-20 [facility] Work Phone: Comment on above: PATIENT WAS FASTINGP ERFORMED BY: EVELIN [facility] Lsgsdz0404 [address] RoadDublin [place] [id number] Microscopic ExaminationOrder ed By: Rice Cleaning Machine Tender on 01-14-2016 Bacteria LM.HPF #/area (Urine sed) Few Normal [facility] Work Phone: Epithelial cells LM.HPF #/area (Urine sed) 0-10 Normal 0 - 10 [facility] Work Phone: Mucus LM Ql (Urine sed) Present Normal [facility] Work Phone: RBC LM.HPF #/area (Urine sed) 0-2 Normal 0 - 2 [facility] Work Phone: WBC LM.HPF #/area (Urine sed) 0-5 Normal 0 - 5 [facility] Work Phone: URINALYSIS, W/ MICRO ([id number]) Ordered By: Rice Cleaning Machine Tender on 01-14-2016 Appearance Nom (U) Clear Normal Compre hensive Internal Medicine Work Phone: Comment on above: PATIENT WAS FASTINGP ERFORMED BY: EVELIN [facility] Lkiwrt7481 [address] RoadDublin [place] [id number] Bilirubin Ql (U) Negative Normal Comprehe nsive Internal Medicine Work Phone: Comment on above: PATIENT WAS FASTINGP ERFORMED BY: EVELIN [facility] Hivbnm3393 [address] RoadCritical Access Hospitalin [place] [id number] Color Nom (U) Yellow Normal Comprehensi ve Internal Medicine Work Phone: Comment on above: PATIENT WAS FASTINGP ERFORMED BY: EVELIN [facility] Yfgbim7099 [address] RoadDublin [place] [id number] Glucose Ql (U) Negative Normal Comprehens [place] Internal Medicine Work Phone: Comment on above: PATIENT WAS FASTINGP ERFORMED BY: EVELIN [facility] Ujmzoz4325 [address] RoadDublin [place] [id number] Hemoglobin Ql (U) Negative Normal Compreh ensive Internal Medicine Work Phone: Comment on above: PATIENT WAS FASTINGP ERFORMED BY: EVELIN [facility] Kypbvy2469 [address] RoadDublin [place] [id number] Hemoglobin Test strip Ql (U) Negative Normal [facility] Work Phone: Ketones Ql (U) Negative Normal Comprehens [place] Internal Medicine Work Phone: Comment on above: PATIENT WAS FASTINGP ERFORMED BY: EVELIN [facility] Jlvndl7059 Infante RoadDublin [place] [id number] Leukocyte esterase Test strip Ql (U) Trace Abnormal [facility] Work Phone: Comment on above: PATIENT WAS FASTINGP ERFORMED BY: EVELIN [facility] Gasitd4311 [address] RoadDublin [place] [id number] Microscopic observation LM Nom (Urine sed) See below: Normal [facility] Work Phone: Comment on above: Microscopic was radha cated and was performed. PATIENT WAS FASTINGP ERFORMED BY: EVELIN [facility] Feywrk0838 Infante RoadDublin [place] [id number] Nitrite Ql (U) Negative Normal Comprehens dale [facility] Work Phone: Comment on above: PATIENT WAS FASTINGP ERFORMED BY: EVELIN [facility] Rdywsg9767 [address] RoadDublin [place] [id number] Nitrite Test strip Ql (U) Negative Normal [facility] Work Phone: pH (U) 6.0 [pH] Normal 5.0-7.5 [facility] Work Phone: Comment on above: PATIENT WAS FASTINGP ERFORMED BY: EVELIN [facility] Zseflx4937 Inf[address] RoadDublin [place] [id number] pH Test strip (U) 6.0 [pH] Normal 5.0-7.5 Compreh ensive Internal Medicine Work Phone: Protein Ql (U) Negative Normal Comprehens [facility] Work Phone: Comment on above: PATIENT WAS FASTINGP ERFORMED BY: EVELIN [facility] Fytiyl5223 [address] RoadDublin [place] [id number] Protein Test strip Ql (U) Negative Normal [facility] Work Phone: Specific gravity Relative Density (U) 1.024 1 Normal 1.005-1.03 0 [facility] Work Phone: Comment on above: PATIENT WAS FASTINGP ERFORMED BY: [employer] Cxiknw6634 [facility] [id number] Urobilinogen Test strip mass conc (U) 1.0 mg/dL Normal 0.2-1.0 Comprehensiv e Internal Medicine Work Phone: Comment on above: PATIENT WAS FASTINGP ERFORMED BY: [employer] Xqxwok7151 [facility] [id number] Vitamin D Hydroxy (48363)Ord ered By: Rice Cleaning Machine Tender on 01-14-2016 25-Hydroxyvitamin D2+25-Hydroxyvitamin D3 mass conc 35.8 ng/mL Normal 30.0-100.0 [facility] Work Phone: Comment on above: Vitamin D deficiency has been defined by the [place] of[facility]cine and an Endocrine Society practice guideline as alevel of serum 25-OH vitamin D less than 20 ng/mL (1,2).The Endocrine Society went on to further define vitamin Dinsufficiency as a level between 21 and 29 ng/mL (2).1. IOM ([place] of Medicine). 2010. Dietary reference intakes for calcium and D. [place]: The National Academies Press.2. Sheryl MF, Driss PALOMINO, Dennis FIERRO, et al. Evaluation, treatment, and prevention of vitamin D deficiency: an Endocrine Society clinical practice guideline. JCEM. 2010; 96(7):1911-30. PATIENT WAS FASTINGP ERFORMED BY: Greenlight PlanetInspira Medical Center Mullica HillVvdrjx5675 [facility] [id number] CBC W/AUTO DIFF WBC (65758)O rdered By: Rice Cleaning Machine Tender on 06-10-2015 Basophils (Bld) [#/Vol] 0.1 {x10E3/uL} Normal 0.0-0.2 [facility] Work Phone: Comment on above: PATIENT WAS FASTINGP ERFORMED BY: [employer] Bwxdhe7346 [facility] [id number] BY: BN [address] [id number] Information: 333258,[id number] Basophils Auto #/vol (Bld) 0.1 {x10E3/uL} Normal 0.0-0.2 [facility] Work Phone: Basophils/100 WBC (Bld) 1 % Normal [facility] Work Phone: Comment on above: PATIENT WAS FASTINGP ERFORMED BY: Greenlight PlanetTimothy [place] 0530870 [facility] [id number] BY: [facility] Southern HealthcareSocialWire[address] [id number] Information: 206145,N38500 Basophils/100 WBC Auto (Bld) 1 % Normal [facility] Work Phone: Eosinophils (Bld) [#/Vol] 0.3 {x10E3/uL} Normal 0.0-0.4 [facility] Work Phone: Comment on above: PATIENT WAS FASTINGP ERFORMED BY: Greenlight PlanetTim[place] 0530870 [facility] [id number] BY: [employer] Planet[address] [id number] Information: 626868,[id number] Eosinophils Auto #/vol (Bld) 0.3 {x10E3/uL} Normal 0.0-0.4 [facility] Work Phone: Eosinophils/100 WBC (Bld) 4 % Normal [facility] Work Phone: Comment on above: PATIENT WAS FASTINGP ERFORMED BY: Greenlight PlanetTim[place] 0530870 [facility] [id number] BY: [address] [id number] Information: 991832,Y32261 Eosinophils/100 WBC Auto (Bld) 4 % Normal [facility] Work Phone: Erythrocyte distribution width (RBC) [Ratio] 14.6 % Normal 12.3-15.4 [facility] Work Phone: Comment on above: PATIENT WAS FASTINGP ERFORMED BY: [employer] Uaojxg8397 [facility] [id number] BY: [employer] Planet[address] [id number] Information: 302149,[id number] Erythrocyte distribution width Auto Ratio (RBC) 14.6 % Normal 12.3-15.4 [facility] Work Phone: Hematocrit (Bld) [Volume fraction] 50.6 % Normal 37.5-51.0 [facility] Work Phone: Comment on above: PATIENT WAS FASTINGP ERFORMED BY: [employer] Games6370 [facility] [id number] BY: [employer] Planet[address] [id number] Information: 293245,Z81633 Hematocrit Auto Volume Fraction (Bld) 50.6 % Normal 37.5-51.0 [facility] Internal Medicine Work Phone: Hemoglobin mass conc (Bld) 17.1 g/dL Normal 12.6-17.7 [facility] Work Phone: Comment on above: PATIENT WAS FASTINGP ERFORMED BY: UNIFi Softwarelin6370 [facility] [id number] BY: [employer] [id number] Information: 163114,[id number] Immature granulocytes #/vol (Bld) 0.0 {x10E3/uL} Normal 0.0-0.1 [facility] Work Phone: Comment on above: PATIENT WAS FASTINGP ERFORMED BY: [employer] Dijyiw9557 [facility] [id number] BY: Brainrack[address] [id number] Information: 280012,[id number] Immature granulocytes/100 WBC (Bld) 0 % Normal [facility] Work Phone: Comment on above: PATIENT WAS FASTINGP ERFORMED BY: LabSocialWireInspira Medical Center Mullica HillFteday9571 [facility] [id number] BY: [address] [id number] Information: 798649,[id number] Lymphocytes (Bld) [#/Vol] 2.4 {x10E3/uL} Normal 0.7-3.1 [facility] Work Phone: Comment on above: PATIENT WAS FASTINGP ERFORMED BY: LabSocialWirerp Cofvfv4015 [facility] [id number] BY: [place] Southern HealthcareSocialWire[address] [id number] Information: 069240,[id number] Lymphocytes Auto #/vol (Bld) 2.4 {x10E3/uL} Normal 0.7-3.1 [facility] Work Phone: Lymphocytes/100 WBC (Bld) 36 % Normal [facility] Work Phone: Comment on above: PATIENT WAS FASTINGP ERFORMED BY: Greenlight PlanetTim[place] 0530870 [facility] [id number] BY: [address] [id number] Information: 575031,T97092 Lymphocytes/100 WBC Auto (Bld) 36 % Normal [facility] Work Phone: MCH (RBC) [Entitic mass] 31.0 pg Normal 26.6-33.0 [facility] Work Phone: Comment on above: PATIENT WAS FASTINGP ERFORMED BY: Greenlight PlanetTim[place] 0530870 [facility] [id number] BY: [address] [id number] Information: 750504,A99138 MCH Auto Entitic mass (RBC) 31.0 pg Normal 26.6-33.0 [facility] Work Phone: MCHC (RBC) [Mass/Vol] 33.8 g/dL Normal 31.5-35.7 [facility] prehensive Internal Medicine Work Phone: Comment on above: PATIENT WAS FASTINGP ERFORMED BY: VEELIN Greenlight Planetflorentin WoodAbvcre6762 [facility] [id number] BY: [address] [id number] Information: 103256,V15245 MCHC Auto mass conc (RBC) 33.8 g/dL Normal 31.5-35.7 [facility] Work Phone: MCV (RBC) [Entitic vol] 92 fL Normal 79-97 [facility] Work Phone: Comment on above: PATIENT WAS FASTINGP ERFORMED BY: EVELIN Greenlight Planetflorentin WoodRadqft8942 [facility] [id number] BY: [employer] [id number] Information: 677354,K47672 MCV Auto Entitic volume (RBC) 92 fL Normal 79-97 [facility] Work Phone: Monocytes (Bld) [#/Vol] 0.5 {x10E3/uL} Normal 0.1-0.9 [facility] Work Phone: Comment on above: PATIENT WAS FASTINGP ERFORMED BY: EVELIN [employer] Amrkbt4930 [facility] [id number] BY: [address] [id number] Information: 084230,[id number] Monocytes Auto #/vol (Bld) 0.5 {x10E3/uL} Normal 0.1-0.9 [facility] Work Phone: Monocytes/100 WBC (Bld) 7 % Normal [facility] Work Phone: Comment on above: PATIENT WAS FASTINGP ERFORMED BY: EVELIN Greenlight PlanetTim[place] 0530870 [facility] [id number] BY: [employer] [id number] Information: 883654,X92111 Monocytes/100 WBC Auto (Bld) 7 % Normal [facility] Work Phone: Neutrophils (Bld) [#/Vol] 3.5 {x10E3/uL} Normal 1.4-7.0 [facility] Work Phone: Comment on above: PATIENT WAS FASTINGP ERFORMED BY: [employer] Hpwilh2545 [facility] [id number] BY: [employer] [address] [id number] Information: 934091,C74650 Neutrophils Auto #/vol (Bld) 3.5 {x10E3/uL} Normal 1.4-7.0 [facility] Work Phone: Neutrophils/100 WBC (Bld) 52 % Normal [facility] Work Phone: Comment on above: PATIENT WAS FASTINGP ERFORMED BY: [employer] Ihkvhz2841 [facility] [id number] BY: Scribz[address] [id number] Information: 987731,H60001 Neutrophils/100 WBC Auto (Bld) 52 % Normal [facility] Work Phone: Platelets (Bld) [#/Vol] 247 {x10E3/uL} Normal 150-379 [facility] Work Phone: Comment on above: PATIENT WAS FASTINGP ERFORMED BY: [employer] Kdmobr2729 [facility] [id number] BY: [employer] [id number] Information: 688498,T02715 Platelets Auto #/vol (Bld) 247 {x10E3/uL} Normal 150-379 [facility] Work Phone: RBC (Bld) [#/Vol] 5.51 {x10E6/uL} Normal 4.14-5.80 [facility] Work Phone: Comment on above: PATIENT WAS FASTINGP ERFORMED BY: EVELIN LabRay Hinton6370 [facility] [id number] BY: [employer] Planet[address] [id number] Information: 845627,[id number] RBC Auto #/vol (Bld) 5.51 {x10E6/uL} Normal 4.14-5.80 [facility] Work Phone: WBC (Bld) [#/Vol] 6.6 {x10E3/uL} Normal 3.4-10.8 [facility] Internal Medicine Work Phone: Comment on above: PATIENT WAS FASTINGP ERFORMED BY: EVELIN Greenlight Planetflorentin Zlgxlc9899 [facility] [id number] BY: [employer] [id number] Information: 577102,Z20659 WBC Auto #/vol (Bld) 6.6 {x10E3/uL} Normal 3.4-10.8 [facility] Work Phone: LIPID PANEL (82077)Ordered B y: 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 PATIENT WAS FASTINGP ERFORMED BY: EVELIN LabSocialWirerp Bwafqr0060 [facility] [id number] BY: [employer] Planet[address] [id number]; non-emergent till apt Cholesterol in LDL mass conc 118 mg/dL Abnormal 0-99 [facility] Work Phone: Comment on above: PATIENT WAS FASTINGP ERFORMED BY: EVELIN [facility] Pechzq6647 [facility] [id number] BY: [employer] [id number]; non-emergent till apt Cholesterol in LDL/Cholesterol in HDL mass ratio 3.4 {ratio_units} Normal 0.0-3.6 [facility] Work Phone: Comment on above: LDL/HDL Ratio Men Wo men 1/2 Avg.Risk 1.0 1.5 Avg.Risk 3.6 3.2 2X Avg.Risk 6.2 5.0 3X Avg.Risk 8.0 6.1 PATIENT WAS FASTINGP ERFORMED BY: Awdio70 [facility] [id number] BY: [employer] [id number]; non-emergent till apt Cholesterol in VLDL mass conc 33 mg/dL Normal 5-40 [facility] Work Phone: Comment on above: PATIENT WAS FASTINGP ERFORMED BY: Awdio70 [facility] [id number] BY: [employer] [id number]; non-emergent till apt Cholesterol mass conc 186 mg/dL Normal 100-199 [facility] Internal Medicine Work Phone: Comment on above: PATIENT WAS FASTINGP ERFORMED BY: UNIFi Softwarelin6370 [facility] [id number] BY: [employer] Planet[address] [id number]; non-emergent till apt Triglyceride mass conc 164 mg/dL Abnormal 0-149 [facility] Internal Medicine Work Phone: Comment on above: PATIENT WAS FASTINGP ERFORMED BY: Awdio70 [facility] [id number] BY: Brain[employer] [id number]; non-emergent till apt METABOLIC PANEL, COMPREHENSI VE (93467)Ordered By: Rice Cleaning Machine Tender on 06-10-2015 Albumin mass conc 4.3 g/dL Normal 3.5-5.5 [facility] Internal Medicine Work Phone: Comment on above: PATIENT WAS FASTINGP ERFORMED BY: [facility] Xsilln2555 [facility] [id number] BY: Lab[address] [id number] Albumin/Globulin mass ratio 1.8 {ratio} Normal 1.1-2.5 [facility] Internal Medicine Work Phone: Comment on above: PATIENT WAS FASTINGP ERFORMED BY: [facility] Vswclq8085 [facility] [id number] BY: Lab[address] [id number] ALP enzyme act/vol 88 [iU]/L Normal 39-117 [facility] Internal Medicine Work Phone: Comment on above: PATIENT WAS FASTINGP ERFORMED BY: [facility] Mlqsur9673 [facility] [id number] BY: LabCo[address] [id number] ALT enzyme act/vol 20 [iU]/L Normal 0-44 [facility] Internal Medicine Work Phone: Comment on above: PATIENT WAS FASTINGP ERFORMED BY: [facility] Qbakep4544 [facility] [id number] BY: LabCo[address] [id number] AST enzyme act/vol 15 [iU]/L Normal 0-40 [facility] Internal Medicine Work Phone: Comment on above: PATIENT WAS FASTINGP ERFORMED BY: [facility] Nsvost9150 [facility] [id number] BY: Lab[address] [id number] Bilirubin mass conc 0.3 mg/dL Normal 0.0-1.2 Compr [facility] Internal Medicine Work Phone: Comment on above: PATIENT WAS FASTINGP ERFORMED BY: EVELIN [facility] Sentvb3301 [facility] [place] [id number] BY: Lab[address] [id number] Calcium mass conc 9.6 mg/dL Normal 8.7-10.2 Compreh ensive Internal Medicine Work Phone: Comment on above: PATIENT WAS FASTINGP ERFORMED BY: EVELIN [facility] Aqybux2990 [address] [facility] [id number] BY: LabCo[address] [id number] Chloride molar conc 100 mmol/L Normal 97-108 Compr ehensive Internal Medicine Work Phone: Comment on above: PATIENT WAS FASTINGP ERFORMED BY: EVELIN [facility] Sdgico0347 [address] RoadCritical Access Hospitalin [place] [id number] BY: Lab[address] [id number] CO2 molar conc 24 mmol/L Normal 18-29 Comprehens [facility] Work Phone: Comment on above: PATIENT WAS FASTINGP ERFORMED BY: EVELIN [facility] Jqurag6225 [facility] [place] [id number] BY: Lab[address] [id number] Creatinine mass conc 0.99 mg/dL Normal 0.76-1.27 Comp rehensive Internal Medicine Work Phone: Comment on above: PATIENT WAS FASTINGP ERFORMED BY: [facility] Vnoxfi3179 [facility] [place] [id number] BY: Lab[address] [id number] GFR/1.73 sq M predicted among blacks CKD-EPI vol rate/area (S/P/Bld) 99 mL/min/1.73 Normal Comprehensiv e Internal Medicine Work Phone: Comment on above: PATIENT WAS FASTINGP ERFORMED BY: EVELIN [facility] Ejnqhs4481 [facility] [id number] BY: [employer] Planet[address] [id number] GFR/1.73 sq M predicted among non-blacks CKD-EPI vol rate/area (S/P/Bld) 86 mL/min/1.73 Normal [facility] Work Phone: Comment on above: PATIENT WAS FASTINGP ERFORMED BY: EVELIN [facility] Rijqxz8190 [facility] [id number] BY: Lab[address] [id number] Globulin (S) [Mass/Vol] 2.4 g/dL Normal 1.5-4.5 [facility] Work Phone: Comment on above: PATIENT WAS FASTINGP ERFORMED BY: EVELIN [facility] Yszyfi463[address] [id number] BY: [address] [id number] Globulin Calculated mass conc (S) 2.4 g/dL Normal 1.5-4.5 [facility] Work Phone: Glucose mass conc 71 mg/dL Normal 65-99 Compreh ensive Internal Medicine Work Phone: Comment on above: PATIENT WAS FASTINGP ERFORMED BY: EVELIN [facility] Cyjtzx5060 [facility] [id number] BY: [address] [id number] Potassium molar conc 4.4 mmol/L Normal 3.5-5.2 Comp rehensive Internal Medicine Work Phone: Comment on above: PATIENT WAS FASTINGP ERFORMED BY: EVELIN LabCo[address] [id number] BY: [address] [id number] Protein mass conc 6.7 g/dL Normal 6.0-8.5 Compreh ensive Internal Medicine Work Phone: Comment on above: PATIENT WAS FASTINGP ERFORMED BY: CB [facility] Jlhxiu0479 Infante RoadDublin [place] [id number] BY: [address] [id number] Sodium molar conc 141 mmol/L Normal 134-144 Compreh ensive Internal Medicine Work Phone: Comment on above: PATIENT WAS FASTINGP ERFORMED BY: CB [facility] Slwinj1042 Infante RoadDublin [place] [id number] BY: Lab[address] [id number] Urea nitrogen mass conc 11 mg/dL Normal 6-24 [facility] Work Phone: Comment on above: PATIENT WAS FASTINGP ERFORMED BY: CB [facility] Lgqzme7783 Inf[address] RoadDublin [place] [id number] BY: [address] [id number] Urea nitrogen/Creatinine mass ratio 11 mg/mg Normal 9-20 [facility] Work Phone: Comment on above: PATIENT WAS FASTINGP ERFORMED BY: [facility] Pejado0120 Inf[address] Roadblin [place] [id number] BY: Lab[address] [id number] TESTOSTERONE FREE (76364)Ord ered By: Rice Cleaning Machine Tender on 06-10-2015 Testosterone Free mass conc 9.0 pg/mL Normal 7.2-24.0 [facility] Work Phone: Comment on above: PATIENT WAS FASTINGP ERFORMED BY: [facility] Oovaak2006 Inf[address] RoadDublin [place] [id number] BY: [address] [id number] Vitamin D Hydroxy (84968)Ord ered By: Rice Cleaning Machine Tender on 06-10-2015 25-Hydroxyvitamin D2+25-Hydroxyvitamin D3 mass conc 51.6 ng/mL Normal 30.0-100.0 [facility] Work Phone: Comment on above: Vitamin D deficiency has been defined by the [place] ofMedicine and an Endocrine Society practice guideline as alevel of serum 25-OH vitamin D less than 20 ng/mL (1,2).The Endocrine Society went on to further define vitamin Dinsufficiency as a level between 21 and 29 ng/mL (2).1. IOM ([place] of Medicine). 2010. Dietary reference intakes for calcium and D. [place]: The National Academies Press.2. Sheryl MF, Driss PALOMINO, Dennis FIERRO, et al. Evaluation, treatment, and prevention of vitamin D deficiency: an Endocrine Society clinical practice guideline. JCEM. 2010; 96(7):1911-30. PATIENT WAS FASTINGP ERFORMED BY: CB [facility] Plrlfc7970 [facility] [id number] BY: BN [facility] Joubfpdafd9273 [facility] [id number] Lipid ProfileOrdered By: Estrella tem Water Server on 11-19-2014 Cholesterol in HDL mass conc 31 mg/dL Abnormal [facility] Work Phone: Comment on above: Reference Range HDL <40 mg/dL Low HDL Cholesterol HDL >or= 60 mg/dL High HDL Cholesterol Cholesterol in LDL mass conc 121 mg/dL Normal 0-130 [facility] Work Phone: Cholesterol mass conc 194 mg/dL Normal Com prehensive Internal Medicine Work Phone: Comment on above: <200 mg/dL Desirable 200-240 mg/dL Borderline >240 mg/dL High Risk Triglyceride mass conc 212 mg/dL Abnormal 0-199 [facility] Work Phone: Comment on above: Serum Triglycerides Reference Interval Normal <150 mg/dL Borderline high 150 - 199 mg/dL High 200 - 499 mg/dL Very High > or = 500 mg/dL Lipid Profile 42 mg/dL Abnormal 5-40 Comprehensi ve Internal Medicine Work Phone: PSA,Total - Annual ScreenOrd ered By: Rice Cleaning Machine Tender on 10-23-2014 PSA,Total - Annual Screen 1.15 ng/mL Normal 0.00-4.00 [facility] Work Phone: Comment on above: This test was perfor med using the TPSA assay method for theDimension chemistry system. Values obtained with differentassay methods cannot be used interchangably.When changing PSA assays in the course of monitoring apatient, additional sequential testing should be carriedout to confirm baseline values. CYTOSPIN ON FLUIDOrdered By: Rice Cleaning Machine Tender on 10-19-2014 CYTOSPIN ON FLUID See Note Normal Compreh ensive Internal Medicine Work Phone: Comment on above: Patient: MARA IGNACIO : 1960 (54/M) Acct Num: [id number] Phys: Flory GREGORY,Steve Unit Num: [id number] Loc: LABSPEC Specimen: [id number] Received: 10/19/141824 Spec Type: CYSPIN FL TISSUES TISSUES: COMMENT Case has been reviewed in consultation with Dr. Bender who concurs with the abovediagnosis. IDC:AM CULTURE RESULTS No results available. CYTOLOGY GROSS Received is 80 ml of yellow hazy fluid designated urine. Submitted for cytology preparation. / CC: 10/20/14 TC:5 CPT: 92387 CYTOLOGY STUDY The specimen is paucicellular and consists of benign urothelial cells, squamous cells and a few neutrophils. DIAGNOSIS CYTOLOGY Urine for cytology (cytospin); Negative for malignant cells. See Cytology Study and Comment. SJ: 10/20/14 HEADER OPERATION: Not noted PRE-OPERATIVE DIAGNOSIS: Hematuria TISSUE SUBMITTED: Urine cytology Signed Les Howard 10/21/14 Cytology, Body Fluid / CSFOr dered By: Rice Cleaning Machine Tender on 10-19-2014 Cytology, Body Fluid / CSF SEE PATHOLOGY REPORT Normal Comprehensi ve Internal Medicine Work Phone: Comment on above: Specimen submitted t o Anatomical Pathology Department fortesting. ERYN CULTURE-OTHER (10012)Ord ered By: Rice Cleaning Machine Tender on 09-22-2014 Bacteria identified Respiratory culture Nom (Unsp spec) RRF Normal [facility] Work Phone: Comment on above: Routine respiratory erik PATIENT NOT FASTINGP ERFORMED BY: LabCoInspira Medical Center Mullica HillDsojxh7360 [facility] [id number] Information: SRC:THRT [id number] Bacteria identified Respiratory culture Nom (Unsp spec) Final report Normal Comprehensive Internal Medicine Work Phone: Comment on above: PATIENT NOT FASTINGP ERFORMED BY: CB [facility] Wdclca9742 [facility] [id number] Information: SRC:THRT [id number] Rapid Strep Test, Office (13 942)Ordered By: Keiry Renae on 09-21-2014 S. pyogenes Ag IA Ql (Unsp spec) Negative Normal [facility] Work Phone: URINE ERYN CULTURE-MICHAEL COL C OUNT (14997)Ordered By: Rice Cleaning Machine Tender on 08-11-2014 Bacteria identified Cx Nom (U) Final report Abnormal [facility] Work Phone: Comment on above: PATIENT NOT FASTINGP ERFORMED BY: [facility] Rnunnq7805 [facility] [id number] Information: SRC:UR O25555 Bacteria identified Cx Nom (U) BETAGB Abnormal [facility] Work Phone: Comment on above: Beta hemolytic Strep tococcus, group B10,000-25,000 colony forming units per mLPenicillin and ampicillin are drugs of choice for treatment ofbeta-hemolytic streptococcal infections. Susceptibility testing ofpenicillins and other beta-lactam agents approved by the FDA fortreatment of beta-hemolytic streptococcal infections need not beperformed routinely because nonsusceptible isolates are extremelyrare in any beta-hemolytic streptococcus and have not been reportedfor Streptococcus pyogenes (group A). (CLSI 2011)Mixed urogenital flora25,000-50,000 colony forming units per mL PATIENT NOT FASTINGP ERFORMED BY: CB [facility] Uxofjy7340 [facility] [id number] Information: SRC:UR W83016 Urinalysis, Office (42123)Or dered By: Smita Tang on 08-11-2014 Bilirubin Ql (U) Small Normal Comprehe nsive Internal Medicine Work Phone: Glucose Test strip mass conc (U) Negative Normal [facility] Work Phone: Hemoglobin Test strip Ql (U) Negative Normal [facility] Work Phone: Ketones Ql (U) Small Normal Comprehens dale Internal Medicine Work Phone: Leukocyte esterase Test strip Ql (U) Negative Normal [facility] Work Phone: Nitrite Test strip Ql (U) Negative Normal [facility] Work Phone: pH Test strip (U) 6.0 [pH] Normal Compreh ensive Internal Medicine Work Phone: Protein Test strip Ql (U) Negative Normal [facility] Work Phone: Specific gravity Relative Density (U) 1.030 1 Abnormal Comprehensi ve Internal Medicine Work Phone: Urobilinogen mass/time (24H U) 2 mg/dL Normal [facility] Work Phone: Comment on above: 1.0 Urinalysis, Office (09282)on 08-11-2014 Hemoglobin Ql (U) Negative Normal Compreh ensive Internal Medicine Work Phone: Nitrite Ql (U) Negative Normal Comprehens d[facility] Work Phone: pH (U) 6.0 [pH] Normal [facility] Work Phone: Protein Ql (U) Negative Normal Comprehens dale [facility] Work Phone: Urine Cytology (85574)Ordere d By: Rice Cleaning Machine Tender on 08-11-2014 Diagnosis ICD code [Identifier] SPRCS Normal [facility] Work Phone: Comment on above: 599.70 ; Hematuria, unspecifiedURINENEGATIVE FOR MALIGNANT CELLS.TRANSITIONAL EPITHELIAL CELLS ARE PRESENT.Ivette Chan MD, PathologistGeovanna Kim, Pinked Edge Sewing Machine Operator (ASCP)70 ML, DRK YELLOW, THIN/LCS No. of containers..0 1 Urine BottlePATIENT NOT FASTINGPERFORMED BY: [facility] [address] [id number] Information: SRC: [id number] CARBON MONOXIDE (64853)Order ed By: Rice Cleaning Machine Tender on 07-10-2014 Carboxyhemoglobin/Hem oglobin.total mass fraction (Bld) 3.8 % Abnormal 0.0-1.9 [facility] Work Phone: Comment on above: Environmental Exposu re: Nonsmokers <2.0 Smokers <9.0 Occupational Exposure: DAXA 3.5 . Detection Limit = 0.2 PATIENT WAS FASTINGP ERFORMED BY: Awdio70 [facility] CenterEfficiency ExchangeNovant Health Presbyterian Medical Center [id number] BY: [employer] [id number] CBC (AUTO) (34453)Ordered By : Rice Cleaning Machine Tender on 07-10-2014 Erythrocyte distribution width (RBC) [Ratio] 14.0 % Normal 12.3-15.4 [facility] Internal Medicine Work Phone: Comment on above: PATIENT WAS FASTINGP ERFORMED BY: Awdio70 MYagonism.comBaptist Health [facility] [id number] BY: [employer] [id number] Erythrocyte distribution width Auto Ratio (RBC) 14.0 % Normal 12.3-15.4 [facility] Work Phone: Hematocrit (Bld) [Volume fraction] 50.4 % Normal 37.5-51.0 [facility] Internal Medicine Work Phone: Comment on above: PATIENT WAS FASTINGP ERFORMED BY: Awdio70 [facility] [id number] BY: [employer] [id number] Hematocrit Auto Volume Fraction (Bld) 50.4 % Normal 37.5-51.0 [facility] Internal Medicine Work Phone: Hemoglobin mass conc (Bld) 17.3 g/dL Normal 12.6-17.7 [facility] Work Phone: Comment on above: PATIENT WAS FASTINGP ERFORMED BY: Awdio70 [facility] [id number] BY: BN [facility]Co[address] [id number] MCH (RBC) [Entitic mass] 32.3 pg Normal 26.6-33.0 [facility] Internal Medicine Work Phone: Comment on above: PATIENT WAS FASTINGP ERFORMED BY: EVELIN [employer] Tkzvah9251 [facility] [id number] BY: [employer] [id number] MCH Auto Entitic mass (RBC) 32.3 pg Normal 26.6-33.0 [facility] Internal Medicine Work Phone: MCHC (RBC) [Mass/Vol] 34.3 g/dL Normal 31.5-35.7 [facility] Internal Medicine Work Phone: Comment on above: PATIENT WAS FASTINGP ERFORMED BY: UNIFi Softwarelin6370 [facility] [id number] BY: [employer] [address] [id number] MCHC Auto mass conc (RBC) 34.3 g/dL Normal 31.5-35.7 [facility] Internal Medicine Work Phone: MCV (RBC) [Entitic vol] 94 fL Normal 79-97 [facility] Work Phone: Comment on above: PATIENT WAS FASTINGP ERFORMED BY: [employer] Wnwwpc9817 [facility] [id number] BY: [employer] [id number] MCV Auto Entitic volume (RBC) 94 fL Normal 79-97 [facility] Internal Medicine Work Phone: Platelets (Bld) [#/Vol] 230 {x10E3/uL} Normal 150-379 [facility] Work Phone: Comment on above: PATIENT WAS FASTINGP ERFORMED BY: EVELIN Greenlight PlanetTimothy [place] 0530870 [facility] [id number] BY: [employer] [id number] Platelets Auto #/vol (Bld) 230 {x10E3/uL} Normal 150-379 [facility] Work Phone: RBC (Bld) [#/Vol] 5.35 {x10E6/uL} Normal 4.14-5.80 [facility] Work Phone: Comment on above: PATIENT WAS FASTINGP ERFORMED BY: [employer] [facility] [id number] BY: [employer] [address] [id number] RBC Auto #/vol (Bld) 5.35 {x10E6/uL} Normal 4.14-5.80 [facility] Work Phone: WBC (Bld) [#/Vol] 8.2 {x10E3/uL} Normal 3.4-10.8 [facility] Internal Medicine Work Phone: Comment on above: PATIENT WAS FASTINGP ERFORMED BY: [employer] [facility] [id number] BY: [employer] [address] [id number] WBC Auto #/vol (Bld) 8.2 {x10E3/uL} Normal 3.4-10.8 [facility] Work Phone: LIPID PANEL (91260)Ordered B y: Rice Cleaning Machine Tender on 07-10-2014 Cholesterol in HDL mass conc 33 mg/dL Abnormal [facility] Work Phone: Comment on above: According to ATP-III Guidelines, HDL-C >59 mg/dL is considered anegative risk factor for CHD. PATIENT WAS FASTINGP ERFORMED BY: [employer] [facility] [id number] BY: [employer] [id number] Cholesterol in LDL mass conc 120 mg/dL Abnormal 0-99 [facility] Work Phone: Comment on above: PATIENT WAS FASTINGP ERFORMED BY: Awdio70 [facility] [id number] BY: [employer] [id number] Cholesterol in LDL/Cholesterol in HDL mass ratio 3.6 {ratio_units} Normal 0.0-3.6 [facility] Work Phone: Comment on above: LDL/HDL Ratio Men Wo men 1/2 Avg.Risk 1.0 1.5 Avg.Risk 3.6 3.2 2X Avg.Risk 6.2 5.0 3X Avg.Risk 8.0 6.1 PATIENT WAS FASTINGP ERFORMED BY: CB [facility] Bfebdi1907 [facility] [id number] BY: LabCo[address] [id number] Cholesterol in VLDL mass conc 50 mg/dL Abnormal 5-40 [facility] Work Phone: Comment on above: PATIENT WAS FASTINGP ERFORMED BY: CB [facility] Snrgai5753 [facility] [id number] BY: Lab[address] [id number] Cholesterol mass conc 203 mg/dL Abnormal 100-199 [facility] prehensive Internal Medicine Work Phone: Comment on above: PATIENT WAS FASTINGP ERFORMED BY: CB [facility] Zgjfxu3305 [facility] [id number] BY: [facility]Co[address] [id number] Triglyceride mass conc 249 mg/dL Abnormal 0-149 [facility] Work Phone: Comment on above: PATIENT WAS FASTINGP ERFORMED BY: CB [facility] Vfatsj3741 [facility] [id number] BY: Lab[address] [id number] METABOLIC PANEL, COMPREHENSI VE (09149)Ordered By: Rice Cleaning Machine Tender on 07-10-2014 Albumin mass conc 4.3 g/dL Normal 3.5-5.5 Compreh ensive Internal Medicine Work Phone: Comment on above: PATIENT WAS FASTINGP ERFORMED BY: CB [facility] Ywaqji8289 [facility] [id number] BY: Lab[address] [id number] Information: 659646,I32792 Albumin/Globulin mass ratio 1.7 {ratio} Normal 1.1-2.5 [facility] Internal Medicine Work Phone: Comment on above: PATIENT WAS FASTINGP ERFORMED BY: CB [facility] Xzmjmd9468 [facility] [id number] BY: LabCo[address] [id number] Information: 779016,R07324 ALP enzyme act/vol 86 [iU]/L Normal 39-117 [facility] Internal Medicine Work Phone: Comment on above: PATIENT WAS FASTINGP ERFORMED BY: CB [facility] Jlhxii2082 [facility] [id number] BY: Lab[address] [id number] Information: 703103,J42115 ALT enzyme act/vol 26 [iU]/L Normal 0-44 [facility] Internal Medicine Work Phone: Comment on above: PATIENT WAS FASTINGP ERFORMED BY: CB [facility] Okpgzh5080 [facility] [id number] BY: [facility]Co[address] [id number] Information: 045133,C21129 AST enzyme act/vol 22 [iU]/L Normal 0-40 [facility] Internal Medicine Work Phone: Comment on above: PATIENT WAS FASTINGP ERFORMED BY: CB [facility] Fcciel9258 [facility] [id number] BY: [address] [id number] Information: 456246,W45470 Bilirubin mass conc 0.5 mg/dL Normal 0.0-1.2 Compr ehensive Internal Medicine Work Phone: Comment on above: PATIENT WAS FASTINGP ERFORMED BY: CB [facility] Lbeotq0143 [facility] [place] [id number] BY: [facility]Co[address] [id number] Information: 725268,E34054 Calcium mass conc 9.6 mg/dL Normal 8.7-10.2 Compreh ensive Internal Medicine Work Phone: Comment on above: PATIENT WAS FASTINGP ERFORMED BY: CB [facility] Lwzhxd1063 Inf[facility] [id number] BY: [facility]Co[address] [id number] Information: 788353,Q40996 Chloride molar conc 98 mmol/L Normal 97-108 Compr ensive Internal Medicine Work Phone: Comment on above: PATIENT WAS FASTINGP ERFORMED BY: CB [facility] Loszll4119 [facility] [id number] BY: [facility] [id number] Information: 634585,S30886 CO2 molar conc 25 mmol/L Normal 18-29 Comprehens dale Internal Medicine Work Phone: Comment on above: PATIENT WAS FASTINGP ERFORMED BY: CB [facility] Lncptl1268 [facility] [id number] BY: [facility] [address] [id number] Information: 356648,I05949 Creatinine mass conc 1.06 mg/dL Normal 0.76-1.27 Comp [facility] Work Phone: Comment on above: PATIENT WAS FASTINGP ERFORMED BY: CB [facility] Amahur7920 [facility] [id number] BY: [facility] [id number] Information: 731778,T46890 GFR/1.73 sq M predicted among blacks CKD-EPI vol rate/area (S/P/Bld) 92 mL/min/1.73 Normal Comprehensiv e Internal Medicine Work Phone: Comment on above: PATIENT WAS FASTINGP ERFORMED BY: [employer] [facility] Qswjdl9260 [facility] [id number] BY: [employer] [address] [id number] Information: 113847,R16933 GFR/1.73 sq M predicted among non-blacks CKD-EPI vol rate/area (S/P/Bld) 80 mL/min/1.73 Normal [facility] Work Phone: Comment on above: PATIENT WAS FASTINGP ERFORMED BY: [employer] LabSocialWirerp Hykhih5859 [facility] [id number] BY: Scribz[address] [id number] Information: 194820,L57242 Globulin (S) [Mass/Vol] 2.6 g/dL Normal 1.5-4.5 [facility] Work Phone: Comment on above: PATIENT WAS FASTINGP ERFORMED BY: LabSocialWirerp Upcqmw7247 [facility] [id number] BY: [employer] [id number] Information: 742242,B50696 Globulin Calculated mass conc (S) 2.6 g/dL Normal 1.5-4.5 [facility] Work Phone: Glucose mass conc 82 mg/dL Normal 65-99 Compreh ensive Internal Medicine Work Phone: Comment on above: PATIENT WAS FASTINGP ERFORMED BY: [employer] LabSocialWire Vtbjyg6231 [facility] [id number] BY: [employer] [id number] Information: 342167,U91952 Potassium molar conc 4.4 mmol/L Normal 3.5-5.2 Comp rehensive Internal Medicine Work Phone: Comment on above: PATIENT WAS FASTINGP ERFORMED BY: CB [facility] Nlfteh1328 [facility] [id number] BY: [facility] [id number] Information: 105305,Q20959 Protein mass conc 6.9 g/dL Normal 6.0-8.5 Compreh ensive Internal Medicine Work Phone: Comment on above: PATIENT WAS FASTINGP ERFORMED BY: CB [facility] Xqmtur9131 [facility] [id number] BY: [address] [id number] Information: 275439,O24644 Sodium molar conc 139 mmol/L Normal 134-144 Compreh ensive Internal Medicine Work Phone: Comment on above: PATIENT WAS FASTINGP ERFORMED BY: CB [facility] Dcwiim4632 [facility] [id number] BY: LabCo[address] [id number] Information: 808106,P18382 Urea nitrogen mass conc 16 mg/dL Normal 6-24 [facility] Work Phone: Comment on above: PATIENT WAS FASTINGP ERFORMED BY: CB [facility] Eabmss3928 [facility] [id number] BY: Lab[address] [id number] Information: 395529,O46488 Urea nitrogen/Creatinine mass ratio 15 mg/mg Normal 9-20 [facility] Work Phone: Comment on above: PATIENT WAS FASTINGP ERFORMED BY: CB [facility] Ymnbmx1416 [facility] [id number] BY: [facility]1447 [facility] [id number] Information: 361398,O14685 Vitamin D Hydroxy (56731)Ord ered By: Rice Cleaning Machine Tender on 07-10-2014 25-Hydroxyvitamin D2+25-Hydroxyvitamin D3 mass conc 40.3 ng/mL Normal 30.0-100.0 [facility] Work Phone: Comment on above: Vitamin D deficiency has been defined by the [place] ofMedicine and an Endocrine Society practice guideline as alevel of serum 25-OH vitamin D less than 20 ng/mL (1,2).The Endocrine Society went on to further define vitamin Dinsufficiency as a level between 21 and 29 ng/mL (2).1. IOM ([place] of Medicine). 2010. Dietary reference intakes for calcium and D. [place]: The National Academies Press.2. Sheryl MF, Driss PALOMINO, Dennis FIERRO, et al. Evaluation, treatment, and prevention of vitamin D deficiency: an Endocrine Society clinical practice guideline. JCEM. 2010; 96(7):1911-30. PATIENT WAS FASTINGP ERFORMED BY: [employer]time Games6370 [facility]2TECHNovant Health Presbyterian [facility] Center [id number] BY: [employer] Grxaobdaie3842 [facility] [id number] Lyme Disease Antibody W/ Ref sanchez (68399)Ordered By: Rice Cleaning Machine Tender on 03-09-2014 Lyme Disease Antibody W/ Reflex (55461) <0.91 Normal 0.00-0.90 [facility] Work Phone: Comment on above: Negative <0.91 Equiv ocal 0.91 - 1.09 Positive >1.09 Note: The CDC currently advises that Western blot testing be performed following all equivocal or positive EIA results. Final diagnosis should include appropriate clinical findings and a positive EIA which is also positive by Western blot. repeat 6 weeks; [facility] NOT FASTINGPERFORMED BY: [employer]6370 M2TECHin [place] [id number] Information: 968675,G93263 Lyme Disease Antibody W/ Reflex (68191) Negative Normal [facility] Work Phone: Comment on above: repeat 6 weeks; [facility] NOT FASTINGPERFORMED BY: [employer]6370 [facility] [id number] Information: 202867,Q98268 CARBON MONOXIDE (17149)Order ed By: Rice Cleaning Machine Tender on 01-19-2014 Carboxyhemoglobin/Hem oglobin.total mass fraction (Bld) 3.6 % Abnormal 0.0-1.9 [facility] Work Phone: Comment on above: Environmental Exposu re: Nonsmokers <2.0 Smokers <9.0 Occupational Exposure: DAXA 3.5 . Detection Limit = 0.2 PATIENT NOT FASTINGP ERFORMED BY: Awdio70 [facility] [id number] BY: Scribz[address] [id number] Lyme Disease Antibody W/ Ref sanchez (13974)Ordered By: Rice Cleaning Machine Tender on 01-19-2014 Lyme Disease Antibody W/ Reflex (79595) Negative Normal [facility] Work Phone: Comment on above: PATIENT NOT FASTINGP ERFORMED BY: Awdio70 [place] [facility] [id number] BY: Scribz[address] [id number] Lyme Disease Antibody W/ Reflex (32401) <0.91 Normal 0.00-0.90 [facility] Work Phone: Comment on above: Negative <0.91 Equiv ocal 0.91 - 1.09 Positive >1.09 Note: The CDC currently advises that Western blot testing be performed following all equivocal or positive EIA results. Final diagnosis should include appropriate clinical findings and a positive EIA which is also positive by Western blot. PATIENT NOT FASTINGP ERFORMED BY: [employer] Games6370 [facility] [id number] BY: [employer] [id number] METABOLIC PANEL, COMPREHENSI VE (20651)Ordered By: Rice Cleaning Machine Tender on 01-19-2014 Albumin mass conc 4.5 g/dL Normal 3.5-5.5 [facility] Internal Medicine Work Phone: Comment on above: PATIENT NOT FASTINGP ERFORMED BY: CB [facility] Pddhyc7632 [facility] [place] [id number] BY: Lab[address] [id number] Information: 803337,E44144 Albumin/Globulin mass ratio 1.7 {ratio} Normal 1.1-2.5 [facility] Internal Medicine Work Phone: Comment on above: PATIENT NOT FASTINGP ERFORMED BY: CB [facility] Qfzxcz3911 [facility] RoadAt[facility] [id number] BY: LabCo[address] [id number] Information: 736660,A24353 ALP enzyme act/vol 88 [iU]/L Normal 39-117 [facility] Internal Medicine Work Phone: Comment on above: PATIENT NOT FASTINGP ERFORMED BY: CB [facility] Kobvxt0331 [facility] [id number] BY: LabCo[address] [id number] Information: 922285,K09023 ALT enzyme act/vol 18 [iU]/L Normal 0-44 [facility] Internal Medicine Work Phone: Comment on above: PATIENT NOT FASTINGP ERFORMED BY: CB [facility] Wtuuhn2928 [facility] [id number] BY: LabCo[address] [id number] Information: 515897,I58898 AST enzyme act/vol 18 [iU]/L Normal 0-40 [facility] Internal Medicine Work Phone: Comment on above: PATIENT NOT FASTINGP ERFORMED BY: CB [facility] Fwkdvp5231 [facility] [id number] BY: Lab[address] [id number] Information: 543027,U30102 Bilirubin mass conc 0.6 mg/dL Normal 0.0-1.2 Compr ehensive Internal Medicine Work Phone: Comment on above: PATIENT NOT FASTINGP ERFORMED BY: CB [facility] Arcgef6111 [place] RoadDublin [place] [id number] BY: LabCo[address] [id number] Information: 611678,Z19627 Calcium mass conc 9.4 mg/dL Normal 8.7-10.2 Compreh ensive Internal Medicine Work Phone: Comment on above: PATIENT NOT FASTINGP ERFORMED BY: CB [facility] Frvaaj4040 [place] Roadblin [place] [id number] BY: [address] [id number] Information: 050766,U32814 Chloride molar conc 96 mmol/L Abnormal 97-108 Compr ehensive Internal Medicine Work Phone: Comment on above: PATIENT NOT FASTINGP ERFORMED BY: CB [facility] Cdycvx7438 [facility] Hospital[facility] [place] [id number] BY: Lab[address] [id number] Information: 363423,E20951 CO2 molar conc 24 mmol/L Normal 19-28 Comprehens dale Internal Medicine Work Phone: Comment on above: PATIENT NOT FASTINGP ERFORMED BY: CB [facility] Odawhy8711 [place] RoadDublin [place] [id number] BY: Lab[address] [id number] Information: 003077,O11923 Creatinine mass conc 0.99 mg/dL Normal 0.76-1.27 Comp rehensive Internal Medicine Work Phone: Comment on above: PATIENT NOT FASTINGP ERFORMED BY: CB [facility] Ssmrhc2933 [facility] RoadblBaptist Health [facility] [id number] BY: [employer] [id number] Information: 451259,P44627 GFR/1.73 sq M predicted among blacks CKD-EPI vol rate/area (S/P/Bld) 101 mL/min/1.73 Normal Comprehensiv e Internal Medicine Work Phone: Comment on above: PATIENT NOT FASTINGP ERFORMED BY: [facility] Alvahk4027 [facility] [id number] BY: Scribz[address] [id number] Information: 352148,K09542 GFR/1.73 sq M predicted among non-blacks CKD-EPI vol rate/area (S/P/Bld) 87 mL/min/1.73 Normal [facility] Work Phone: Comment on above: PATIENT NOT FASTINGP ERFORMED BY: [facility] Ecraxn0481 [facility] [id number] BY: [employer] [id number] Information: 913046,R46824 Globulin (S) [Mass/Vol] 2.6 g/dL Normal 1.5-4.5 [facility] Work Phone: Comment on above: PATIENT NOT FASTINGP ERFORMED BY: [facility] Mtbgbq0968 [facility] [id number] BY: [employer] [id number] Information: 474187,R13551 Globulin Calculated mass conc (S) 2.6 g/dL Normal 1.5-4.5 [facility] Work Phone: Glucose mass conc 77 mg/dL Normal 65-99 Compreh ensive Internal Medicine Work Phone: Comment on above: PATIENT NOT FASTINGP ERFORMED BY: CB [facility] Ucfyay5073 [facility] [facility] [id number] BY: LabCo[address] [id number] Information: 209281,[id number] Potassium molar conc 4.4 mmol/L Normal 3.5-5.2 Comp rehensive Internal Medicine Work Phone: Comment on above: PATIENT NOT FASTINGP ERFORMED BY: CB [facility] Vwhotd3775 Infante RoadDublin [place] [id number] BY: [facility] [address] [id number] Information: [id number] Protein mass conc 7.1 g/dL Normal 6.0-8.5 Compreh ensive Internal Medicine Work Phone: Comment on above: PATIENT NOT FASTINGP ERFORMED BY: CB [facility] Yzmlhp3376 Infante RoadDublin [place] [id number] BY: [facility] [id number] Information: 544476,L76054 Sodium molar conc 136 mmol/L Normal 134-144 Compreh ensive Internal Medicine Work Phone: Comment on above: PATIENT NOT FASTINGP ERFORMED BY: CB [facility] Ewijvd1753 [facility] [facility] [place] [id number] BY: [facility] [id number] Information: 702399,V20996 Urea nitrogen mass conc 13 mg/dL Normal 6-24 [facility] Work Phone: Comment on above: PATIENT NOT FASTINGP ERFORMED BY: CB [facility] Patlhy3453 [address] RoadDublin [place] [id number] BY: [facility] [address] [id number] Information: 068396,C04009 Urea nitrogen/Creatinine mass ratio 13 mg/mg Normal 9-20 [facility] Work Phone: Comment on above: PATIENT NOT FASTINGP ERFORMED BY: CB [facility] Nplcfk8378 [address] RoadDublin [place] [id number] BY: Scribz[address] [id number] Information: 187610,H54449 CARBON MONOXIDE (89271)Order ed By: Rice Cleaning Machine Tender on 12-31-2013 Carboxyhemoglobin/Hem oglobin.total mass fraction (Bld) 3.3 % Abnormal 0.0-1.9 [facility] Work Phone: Comment on above: Environmental Exposu re: Nonsmokers <2.0 Smokers <9.0 Occupational Exposure: DAXA 3.5 . Detection Limit = 0.2 PATIENT NOT FASTINGP ERFORMED BY: Peraso TechnologiesInspira Medical Center Mullica HillYrlqyl2430 [facility] [id number] BY: Scribz[address] [id number] CBC with manual diff (30980) Ordered By: Rice Cleaning Machine Tender on 12-31-2013 Basophils (Bld) [#/Vol] 0.1 {x10E3/uL} Normal 0.0-0.2 [facility] Work Phone: Comment on above: PATIENT NOT FASTINGP ERFORMED BY: Greenlight PlanetTimothy V[place] 0530870 [facility] [id number] BY: [employer] [id number] Information: 870238,S88123 Basophils Auto #/vol (Bld) 0.1 {x10E3/uL} Normal 0.0-0.2 [facility] Work Phone: Basophils/100 WBC (Bld) 1 % Normal 0-3 [facility] Work Phone: Comment on above: PATIENT NOT FASTINGP ERFORMED BY: [employer] [id number] BY: Scribz[address] [id number] Information: 533467,E12517 Basophils/100 WBC Auto (Bld) 1 % Normal 0-3 [facility] Work Phone: Eosinophils (Bld) [#/Vol] 0.3 {x10E3/uL} Normal 0.0-0.4 [facility] Work Phone: Comment on above: PATIENT NOT FASTINGP ERFORMED BY: EVELIN [facility] Amhajh8490 [facility] [id number] BY: [employer] [id number] Information: 309037,D10696 Eosinophils Auto #/vol (Bld) 0.3 {x10E3/uL} Normal 0.0-0.4 [facility] Work Phone: Eosinophils/100 WBC (Bld) 4 % Normal 0-5 [facility] Work Phone: Comment on above: PATIENT NOT FASTINGP ERFORMED BY: EVELIN Chamate70 [facility] [id number] BY: [employer] [id number] Information: 017709,E06616 Eosinophils/100 WBC Auto (Bld) 4 % Normal 0-5 [facility] Work Phone: Erythrocyte distribution width (RBC) [Ratio] 14.5 % Normal 12.3-15.4 [facility] Work Phone: Comment on above: PATIENT NOT FASTINGP ERFORMED BY: EVELIN [employer] Tnwcyn2204 [facility] [id number] BY: [employer] [id number] Information: 485217,D06093 Erythrocyte distribution width Auto Ratio (RBC) 14.5 % Normal 12.3-15.4 [facility] Work Phone: Hematocrit (Bld) [Volume fraction] 49.1 % Normal 37.5-51.0 [facility] Work Phone: Comment on above: PATIENT NOT FASTINGP ERFORMED BY: [employer] Yoayiw[address] [id number] BY: [employer] [id number] Information: 970942,Q06702 Hematocrit Auto Volume Fraction (Bld) 49.1 % Normal 37.5-51.0 [facility] Internal Medicine Work Phone: Hemoglobin mass conc (Bld) 17.2 g/dL Normal 12.6-17.7 [facility] Work Phone: Comment on above: PATIENT NOT FASTINGP ERFORMED BY: CB [facility] Xgghod6557 [facility] [id number] BY: [employer] [id number] Information: 578106,V26614 Immature granulocytes #/vol (Bld) 0.0 {x10E3/uL} Normal 0.0-0.1 [facility] Work Phone: Comment on above: PATIENT NOT FASTINGP ERFORMED BY: CB [facility] Ddjigd4781 [facility] [id number] BY: [employer] [id number] Information: 646331,K84267 Immature granulocytes/100 WBC (Bld) 0 % Normal 0-2 [facility] Work Phone: Comment on above: PATIENT NOT FASTINGP ERFORMED BY: CB [facility] Euuytc0307 [facility] [id number] BY: [facility] [id number] Information: 561543,H85166 Lymphocytes (Bld) [#/Vol] 2.4 {x10E3/uL} Normal 0.7-3.1 [facility] Work Phone: Comment on above: PATIENT NOT FASTINGP ERFORMED BY: CB [facility] Arsxry7714 [facility] [id number] BY: Brainrack[address] [id number] Information: 398440,Y55892 Lymphocytes Auto #/vol (Bld) 2.4 {x10E3/uL} Normal 0.7-3.1 [facility] Work Phone: Lymphocytes/100 WBC (Bld) 32 % Normal 14- [facility] Work Phone: Comment on above: PATIENT NOT FASTINGP ERFORMED BY: Awdio70 [facility] [id number] BY: [employer] [id number] Information: 249227,U17612 Lymphocytes/100 WBC Auto (Bld) 32 % Normal - [facility] Work Phone: MCH (RBC) [Entitic mass] 32.5 pg Normal 26.6-33.0 [facility] Work Phone: Comment on above: PATIENT NOT FASTINGP ERFORMED BY: [employer]time Games6370 [facility] [id number] BY: [employer] [id number] Information: 187823,T28279 MCH Auto Entitic mass (RBC) 32.5 pg Normal 26.6-33.0 [facility] Work Phone: MCHC (RBC) [Mass/Vol] 35.0 g/dL Normal 31.5-35.7 [facility] Internal Medicine Work Phone: Comment on above: PATIENT NOT FASTINGP ERFORMED BY: UNIFi Softwarelin6370 [facility] [id number] BY: [employer] [id number] Information: 227948,M81638 MCHC Auto mass conc (RBC) 35.0 g/dL Normal 31.5-35.7 [facility] Work Phone: MCV (RBC) [Entitic vol] 93 fL Normal 79-97 [facility] Work Phone: Comment on above: PATIENT NOT FASTINGP ERFORMED BY: EVELIN [facility] Ivlcbh2117 [facility] [id number] BY: [address] [id number] Information: 986341,Z62251 MCV Auto Entitic volume (RBC) 93 fL Normal 79-97 [facility] Work Phone: Monocytes (Bld) [#/Vol] 0.7 {x10E3/uL} Normal 0.1-0.9 [facility] Work Phone: Comment on above: PATIENT NOT FASTINGP ERFORMED BY: [facility] Jhhcip2614 [facility] [id number] BY: [address] [id number] Information: 896111,R05853 Monocytes Auto #/vol (Bld) 0.7 {x10E3/uL} Normal 0.1-0.9 [facility] Work Phone: Monocytes/100 WBC (Bld) 10 % Normal -12 [facility] Work Phone: Comment on above: PATIENT NOT FASTINGP ERFORMED BY: [facility] Yxodlj7726 [facility] [id number] BY: [address] [id number] Information: 213370,Z78756 Monocytes/100 WBC Auto (Bld) 10 % Normal 4-12 [facility] Work Phone: Neutrophils (Bld) [#/Vol] 3.9 {x10E3/uL} Normal 1.4-7.0 [facility] Work Phone: Comment on above: PATIENT NOT FASTINGP ERFORMED BY: [facility] Dznbdj2527 [facility] [id number] BY: [address] [id number] Information: 554789,P49101 Neutrophils Auto #/vol (Bld) 3.9 {x10E3/uL} Normal 1.4-7.0 [facility] Work Phone: Neutrophils/100 WBC (Bld) 53 % Normal 40-74 [facility] Internal Medicine Work Phone: Comment on above: PATIENT NOT FASTINGP ERFORMED BY: [employer] Xewscu7611 [facility] [id number] BY: [employer] [id number] Information: 425927,D56381 Neutrophils/100 WBC Auto (Bld) 53 % Normal 40-74 [facility] Internal Medicine Work Phone: Platelets (Bld) [#/Vol] 218 {x10E3/uL} Normal 155-379 [facility] Internal Medicine Work Phone: Comment on above: PATIENT NOT FASTINGP ERFORMED BY: Awdio70 [facility] [id number] BY: [employer] [id number] Information: 610140,R29735 Platelets Auto #/vol (Bld) 218 {x10E3/uL} Normal 155-379 [facility] Work Phone: RBC (Bld) [#/Vol] 5.30 {x10E6/uL} Normal 4.14-5.80 [facility] Internal Medicine Work Phone: Comment on above: PATIENT NOT FASTINGP ERFORMED BY: UNIFi Softwarelin6370 [facility] [id number] BY: [employer] [id number] Information: 077159,D80175 RBC Auto #/vol (Bld) 5.30 {x10E6/uL} Normal 4.14-5.80 [facility] Internal Medicine Work Phone: WBC (Bld) [#/Vol] 7.3 {x10E3/uL} Normal 3.4-10.8 [facility] Internal Medicine Work Phone: Comment on above: PATIENT NOT FASTINGP ERFORMED BY: EVELIN Greenlight PlanetInspira Medical Center Mullica HillYqvtad5467 [facility] [id number] BY: [facility]1447 [facility] [id number] Information: 573237,P90076 WBC Auto #/vol (Bld) 7.3 {x10E3/uL} Normal 3.4-10.8 [facility] Work Phone: CBC (AUTO) (53255)Ordered By : Rice Cleaning Machine Tender on 11-24-2013 Erythrocyte distribution width (RBC) [Ratio] 13.8 % Normal 12.3-15.4 [facility] Internal Medicine Work Phone: Comment on above: PATIENT WAS FASTINGP ERFORMED BY: EVELIN BrainrackSaint [facility] Xsjplo6951 [facility] [id number] Erythrocyte distribution width Auto Ratio (RBC) 13.8 % Normal 12.3-15.4 [facility] Internal Medicine Work Phone: Hematocrit (Bld) [Volume fraction] 53.3 % Abnormal 37.5-51.0 [facility] Internal Medicine Work Phone: Comment on above: PATIENT WAS FASTINGP ERFORMED BY: EVELIN BrainrackSaint [facility] Center Gdhqdt1985 [facility] [id number] Hematocrit Auto Volume Fraction (Bld) 53.3 % Abnormal 37.5-51.0 [facility] Internal Medicine Work Phone: Hemoglobin mass conc (Bld) 18.0 g/dL Abnormal 12.6-17.7 [facility] Work Phone: Comment on above: PATIENT WAS FASTINGP ERFORMED BY: EVELIN Greenlight PlanetInspira Medical Center Mullica HillLpexzc0863 [address] BioSigniaNovant Health [facility] [id number] MCH (RBC) [Entitic mass] 32.4 pg Normal 26.6-33.0 [facility] Work Phone: Comment on above: PATIENT WAS FASTINGP ERFORMED BY: Greenlight PlanetInspira Medical Center Mullica HillFqowoo9689 [facility] [id number] MCH Auto Entitic mass (RBC) 32.4 pg Normal 26.6-33.0 [facility] Work Phone: MCHC (RBC) [Mass/Vol] 33.8 g/dL Normal 31.5-35.7 [facility] Internal Medicine Work Phone: Comment on above: PATIENT WAS FASTINGP ERFORMED BY: EVELIN [place] 9207670 [facility] [id number] MCHC Auto mass conc (RBC) 33.8 g/dL Normal 31.5-35.7 [facility] Internal Medicine Work Phone: MCV (RBC) [Entitic vol] 96 fL Normal 79-97 [facility] Work Phone: Comment on above: PATIENT WAS FASTINGP ERFORMED BY: EVELIN Woodlin6370 [facility] [id number] MCV Auto Entitic volume (RBC) 96 fL Normal 79-97 [facility] Work Phone: Platelets (Bld) [#/Vol] 258 {x10E3/uL} Normal 155-379 [facility] Work Phone: Comment on above: PATIENT WAS FASTINGP ERFORMED BY: EVELIN Woodlin6370 [facility] [id number] Platelets Auto #/vol (Bld) 258 {x10E3/uL} Normal 155-379 [facility] Work Phone: RBC (Bld) [#/Vol] 5.56 {x10E6/uL} Normal 4.14-5.80 [facility] Internal Medicine Work Phone: Comment on above: PATIENT WAS FASTINGP ERFORMED BY: EVELIN [place] 9207670 [facility] [id number] RBC Auto #/vol (Bld) 5.56 {x10E6/uL} Normal 4.14-5.80 [facility] Internal Medicine Work Phone: WBC (Bld) [#/Vol] 9.0 {x10E3/uL} Normal 3.4-10.8 [facility] prehensive Internal Medicine Work Phone: Comment on above: PATIENT WAS FASTINGP ERFORMED BY: EVELIN LabNatalyflorentin Qoatkh9125 [facility] [place] [id number] WBC Auto #/vol (Bld) 9.0 {x10E3/uL} Normal 3.4-10.8 [facility] Work Phone: LIPID PANEL (09915)Ordered B y: Rice Cleaning Machine Tender on 11-24-2013 Cholesterol in HDL mass conc 43 mg/dL Normal [facility] Work Phone: Comment on above: According to ATP-III Guidelines, HDL-C >59 mg/dL is considered anegative risk factor for CHD. PATIENT WAS FASTINGP ERFORMED BY: EVELIN Woodlin6370 [facility] [id number] Cholesterol in LDL mass conc 159 mg/dL Abnormal 0-99 [facility] Work Phone: Comment on above: PATIENT WAS FASTINGP ERFORMED BY: EVELIN Woodlin6370 [facility] [id number] Cholesterol in LDL/Cholesterol in HDL mass ratio 3.7 {ratio_units} Abnormal 0.0-3.6 [facility] Work Phone: Comment on above: PATIENT WAS FASTINGP ERFORMED BY: EVELIN Woodlin6370 [facility] [id number] Cholesterol in VLDL mass conc 28 mg/dL Normal 5-40 [facility] Work Phone: Comment on above: PATIENT WAS FASTINGP ERFORMED BY: EVELIN LabRay WoodAibotw4079 [facility] [id number] Cholesterol mass conc 230 mg/dL Abnormal 100-199 [facility] prehensive Internal Medicine Work Phone: Comment on above: PATIENT WAS FASTINGP ERFORMED BY: EVELIN LabRay Xpcwbs5256 [facility] [id number] Triglyceride mass conc 142 mg/dL Normal 0-149 [facility] Work Phone: Comment on above: PATIENT WAS FASTINGP ERFORMED BY: CB [facility] Ejnmug8358 Inf[address] Roadblin [place] [id number] METABOLIC PANEL, COMPREHENSI VE (03207)Ordered By: Rice Cleaning Machine Tender on 11-24-2013 Albumin mass conc 4.5 g/dL Normal 3.5-5.5 [facility] Internal Medicine Work Phone: Comment on above: PATIENT WAS FASTINGP ERFORMED BY: EVELIN [facility] Kmafnn8256 [address] Roadblin [place] [id number] Information: M60037, 842168 Albumin/Globulin mass ratio 1.7 {ratio} Normal 1.1-2.5 [facility] Internal Medicine Work Phone: Comment on above: PATIENT WAS FASTINGP ERFORMED BY: EVELIN [facility] Bmlxra8239 [address] RoadDublin [place] [id number] Information: G29638, 017284 ALP enzyme act/vol 93 [iU]/L Normal 39-117 [facility] Internal Medicine Work Phone: Comment on above: PATIENT WAS FASTINGP ERFORMED BY: EVELIN [facility] Gviise7141 [address] Roadblin [place] [id number] Information: L28407, 337544 ALT enzyme act/vol 24 [iU]/L Normal 0-44 [facility] Internal Medicine Work Phone: Comment on above: PATIENT WAS FASTINGP ERFORMED BY: EVELIN [facility] Zsypqp5081 [address] [facility] [place] [id number] Information: D33812, 847456 AST enzyme act/vol 23 [iU]/L Normal 0-40 [facility] Internal Medicine Work Phone: Comment on above: PATIENT WAS FASTINGP ERFORMED BY: EVELIN [facility] Yeiovj0785 Inf[address] RoadDublin [place] [id number] Information: U81598, 324314 Bilirubin mass conc 0.5 mg/dL Normal 0.0-1.2 [facility] Internal Medicine Work Phone: Comment on above: PATIENT WAS FASTINGP ERFORMED BY: [facility] Dmrrhv4532 [facility] [place] [id number] Information: Q84311, 884243 Calcium mass conc 10.0 mg/dL Normal 8.7-10.2 Compreh ensive Internal Medicine Work Phone: Comment on above: PATIENT WAS FASTINGP ERFORMED BY: EVELIN LisaCoflorentin WoodPjrhnm0804 [facility] [place] [id number] Information: H23976, 062295 Chloride molar conc 98 mmol/L Normal 97-108 Compr ehensive Internal Medicine Work Phone: Comment on above: PATIENT WAS FASTINGP ERFORMED BY: EVELIN [facility] Diclho7818 [address] [facility] [id number] Information: H82432, 863046 CO2 molar conc 25 mmol/L Normal 19-28 Comprehens [facility] Internal Medicine Work Phone: Comment on above: PATIENT WAS FASTINGP ERFORMED BY: EVELIN [facility] Atbbkh0752 [facility] [id number] Information: Y50677, 340852 Creatinine mass conc 1.05 mg/dL Normal 0.76-1.27 Comp rehensive Internal Medicine Work Phone: Comment on above: PATIENT WAS FASTINGP ERFORMED BY: EVELIN GonzalezCoflorentin WoodJillni0963 [facility] [id number] Information: T60964, 210753 GFR/1.73 sq M predicted among blacks CKD-EPI vol rate/area (S/P/Bld) 94 mL/min/1.73 Normal Comprehensiv e Internal Medicine Work Phone: Comment on above: PATIENT WAS FASTINGP ERFORMED BY: EVELIN [facility] Wwnqkz3399 [address] [facility] [id number] Information: A76557, 145169 GFR/1.73 sq M predicted among non-blacks CKD-EPI vol rate/area (S/P/Bld) 81 mL/min/1.73 Normal [facility] Work Phone: Comment on above: PATIENT WAS FASTINGP ERFORMED BY: EVELIN [facility] Axdmot4347 [facility] [id number] Information: H21957, 688563 Globulin (S) [Mass/Vol] 2.7 g/dL Normal 1.5-4.5 [facility] Work Phone: Comment on above: PATIENT WAS FASTINGP ERFORMED BY: EVELIN [facility] Vbocbp7340 [facility] [id number] Information: A82577, 445860 Globulin Calculated mass conc (S) 2.7 g/dL Normal 1.5-4.5 [facility] Work Phone: Glucose mass conc 85 mg/dL Normal 65-99 Compreh ensive Internal Medicine Work Phone: Comment on above: PATIENT WAS FASTINGP ERFORMED BY: EVELIN [facility]370 [facility] [id number] Information: X84813, 416582 Potassium molar conc 4.9 mmol/L Normal 3.5-5.2 Comp rehensive Internal Medicine Work Phone: Comment on above: PATIENT WAS FASTINGP ERFORMED BY: EVELIN [facility]6370 [facility] [id number] Information: O40899, 776243 Protein mass conc 7.2 g/dL Normal 6.0-8.5 Compreh ensive Internal Medicine Work Phone: Comment on above: PATIENT WAS FASTINGP ERFORMED BY: LabMymich[facility] Gladwin6370 [facility] [id number] Information: C35693, 240015 Sodium molar conc 137 mmol/L Normal 134-144 Compreh ensive Internal Medicine Work Phone: Comment on above: PATIENT WAS FASTINGP ERFORMED BY: LabCoInspira Medical Center Mullica HillUdzazu7850 [facility] [id number] Information: S92701, 152520 Urea nitrogen mass conc 9 mg/dL Normal 6-24 [facility] Work Phone: Comment on above: PATIENT WAS FASTINGP ERFORMED BY: LabCoTimothy [place] 0530870 [facility] [id number] Information: G45673, 988264 Urea nitrogen/Creatinine mass ratio 9 mg/mg Normal 9-20 [facility] Work Phone: Comment on above: PATIENT WAS FASTINGP ERFORMED BY: [facility] Mtwgcj9410 [facility] [id number] Information: E94587, 278593 VITAMIN B-12 (CYANOCOBALAMIN ) (08772)Ordered By: Rice Cleaning Machine Tender on 11-24-2013 Cobalamin (Vitamin B12) mass conc 405 pg/mL Normal 211-946 [facility] Work Phone: Comment on above: PATIENT WAS FASTINGP ERFORMED BY: [facility]6370 [facility] [id number] Vitamin D Hydroxy (32894)Ord ered By: Rice Cleaning Machine Tender on 11-24-2013 25-Hydroxyvitamin D2+25-Hydroxyvitamin D3 mass conc 39.1 ng/mL Normal 30.0-100.0 [facility] Work Phone: Comment on above: Vitamin D deficiency has been defined by the [place] ofMedicine and an Endocrine Society practice guideline as alevel of serum 25-OH vitamin D less than 20 ng/mL (1,2).The Endocrine Society went on to further define vitamin Dinsufficiency as a level between 21 and 29 ng/mL (2).1. IOM ([place] of Medicine). 2010. Dietary reference intakes for calcium and D. [place]: The National Academies Press.2. Sheryl MF, Driss [place], Dennis FIERRO, et al. Evaluation, treatment, and prevention of vitamin D deficiency: an Endocrine Society clinical practice guideline. JCEM. 2010; 96(7):1911-30. PATIENT WAS FASTINGP ERFORMED BY: [facility]Saint [facility] Dybnar8671 [facility] [id number] Ambiguous Test OrderOrdered By: Rice Cleaning Machine Tender on 09-01-2013 Ambiguous Test Order COMMNT Normal Comp rehensive Internal Medicine Work Phone: Comment on above: Report delayed in or tom to contact you to clarify requested test(s).CONTACTED JOSE D PEDERSON AT YOUR FACILITY ON 09/02/13REQUEST [id number] FREE LIGHT CHAINS Free K+L Lt Chains,Qn,SOrder ed By: Rice Cleaning Machine Tender on 09-01-2013 Immunoglobulin light chains.kappa.free mass conc (S) 12.12 mg/L Normal 3.30-19.40 [facility] Work Phone: Immunoglobulin light chains.kappa.free/Imm unoglobulin light chains.lambda.free mass ratio (S) 0.84 1 Normal 0.26-1.65 [facility] Work Phone: Immunoglobulin light chains.lambda.free mass conc 14.38 mg/L Normal 5.71-26.30 [facility] Work Phone: Protein Electrophoresis, Ser um (SPEP) (11283)Ordered By: Rice Cleaning Machine Tender on 09-01-2013 Albumin mass conc 4.3 g/dL Normal 3.2-5.6 Compreh ensive Internal Medicine Work Phone: Comment on above: PERFORMED BY: [employer] [place] [id number] Albumin/Globulin mass ratio 1.4 {ratio} Normal 0.7-2.0 [facility] Work Phone: Comment on above: PERFORMED BY: [employer] [place] [id number] Alpha 1 globulin Elph mass conc 0.2 g/dL Normal 0.1-0.4 [facility] Work Phone: Comment on above: PERFORMED BY: [employer]70 [place] [id number] Alpha 2 globulin Elph mass conc 0.7 g/dL Normal 0.4-1.2 [facility] Work Phone: Comment on above: PERFORMED BY: SignalDemand [place] [id number] Beta globulin Elph mass conc 1.1 g/dL Normal 0.6-1.3 [facility] Work Phone: Comment on above: PERFORMED BY: SignalDemand [place] [id number] Gamma globulin Elph mass conc 1.1 g/dL Normal 0.5-1.6 [facility] Work Phone: Comment on above: PERFORMED BY: [employer]6370 [facility]Nov[facility] [id number] Globulin (S) [Mass/Vol] 3.1 g/dL Normal 2.0-4.5 [facility] Work Phone: Comment on above: PERFORMED BY: Aristos LogicNovant Health Presbyterian Medical Center [id number] Globulin Calculated mass conc (S) 3.1 g/dL Normal 2.0-4.5 [facility] Work Phone: Protein mass conc 7.4 g/dL Normal 6.0-8.5 Compreh ensive Internal Medicine Work Phone: Comment on above: PERFORMED BY: Aristos LogicNovant Health Presbyterian [facility] [id number] Protein.monoclonal Elph mass conc Not Observed Normal [facility] Work Phone: Comment on above: PERFORMED BY: Aristos LogicNov[facility] Health Pres[facility] [id number] UPEP ([id number])Ordered By: Imgur em Water Server on 09-01-2013 Albumin/Protein.total Elph mass fraction (U) 22.4 % Normal [facility] Work Phone: Comment on above: PERFORMED BY: PsychSignal70 [employer] SolarAt[facility] [id number] Alpha 1 globulin/Protein.tota l Elph mass fraction (U) 0.0 % Normal [facility] Work Phone: Comment on above: PERFORMED BY: PsychSignal70 M2[facility]CHNov[facility] [id number] Alpha 2 globulin/Protein.tota l Elph mass fraction (U) 17.4 % Normal [facility] Work Phone: Comment on above: PERFORMED BY: PsychSignal70 M[facility]CHNov[facility] [id number] Beta globulin/Protein.tota l Elph mass fraction (U) 33.6 % Normal [facility] Work Phone: Comment on above: PERFORMED BY: Signal[employer] [place] [id number] Gamma globulin/Protein.tota l Elph mass fraction (U) 26.6 % Normal [facility] Work Phone: Comment on above: PERFORMED BY: [employer] [place] [id number] Laboratory comment Yonny (Report) SPRCS Normal [facility] Work Phone: Comment on above: Protein electrophore sis scan will follow via computer, mail, orcourier delivery. PERFORMED BY: [employer] [place] [id number] Protein mass conc (U) 8.5 mg/dL Normal 0.0-15.0 Com prehensive [facility] Work Phone: Comment on above: PERFORMED BY: [employer] [place] [id number] Protein.monoclonal/Pr otein.total Elph mass fraction (U) Not Observed Normal [facility] Work Phone: Comment on above: PERFORMED BY: Aristos LogicClarabridge [place] [id number] Written AuthorizationOrdered By: Rice Cleaning Machine Tender on 09-01-2013 Written Authorization WAR Normal [facility] prehensive [facility] Work Phone: Comment on above: Written Authorizatio n Received.Authorization received from PER ORIGINAL REQ [id number] by Aidee Hernandez C-REACTIVE PROTEIN ([id number])Or dered By: Rice Cleaning Machine Tender on 08-14-2013 CRP mass conc 2.4 mg/L Normal 0.0-4.9 Comprehensi ve Internal Medicine Work Phone: Comment on above: PATIENT WAS FASTINGP ERFORMED BY: [employer] [id number] M2TECHNovant Health Presbyterian [facility] [id number] Hemoglobin Glyclated (HGB A1 C) ([id number])Ordered By: Rice Cleaning Machine Tender on 08-14-2013 Hemoglobin A1c/Hemoglobin.total mass fraction (Bld) 5.3 % Normal 4.8-5.6 Comprehensiv e Internal Medicine Work Phone: Comment on above: . Increased risk for diabetes: 5.7 - 6.4 Diabetes: >6.4 Glycemic control for adults with diabetes: <7.0 PATIENT WAS FASTINGP ERFORMED BY: EVELIN BrainrackMymichigan Medical Center Gladwin6370 [facility] [id number] IGA/IGD/IGG/IGM-EACH ([id number]) Ordered By: Rice Cleaning Machine Tender on 08-14-2013 Endomysium IgA Ql (S) Negative Normal Com prehensive [facility] Medicine Work Phone: Comment on above: PATIENT WAS FASTINGP ERFORMED BY: EVELIN [place] [id number] [facility] [id number] Information: [id number] Gliadin peptide IgA Qn (S) 6 {units} Normal 0-19 [facility] Work Phone: Comment on above: Negative 0 - 19 Weak Positive 20 - 30 Moderate to Strong Positive >30 PATIENT WAS FASTINGP ERFORMED BY: EVELIN [facility] [id number] Information: [id number] Gliadin peptide IgG Qn (S) 2 {units} Normal 0-19 [facility] Work Phone: Comment on above: Negative 0 - 19 Weak Positive 20 - 30 Moderate to Strong Positive >30 PATIENT WAS FASTINGP ERFORMED BY: EVELIN LabMymichigan Medical Center Gladwin6370 [facility] [id number] Information: [id number] IgA mass conc 207 mg/dL Normal 91-414 Comprehensi ve Internal Medicine Work Phone: Comment on above: PATIENT WAS FASTINGP ERFORMED BY: EVELIN LabMymichigan Medical Center Gladwin6370 [facility] [id number] Information: [id number] Tissue transglutaminase IgA Qn (S) <2 Normal 0-3 [facility] Work Phone: Comment on above: Negative 0 - 3 Weak Positive 4 - 10 Positive >10 . Tissue Transglutaminase (tTG) has been identified as the endomysial antigen. Studies have demonstr- ated that endomysial IgA antibodies have over 99% specificity for gluten sensitive enteropathy. PATIENT WAS FASTINGP ERFORMED BY: [employer] Bqxjex0098 [facility] [id number] Information: [id number] Tissue transglutaminase IgG Qn (S) 10 U/mL Abnormal 0-5 [facility] Work Phone: Comment on above: Negative 0 - 5 Weak Positive 6 - 9 Positive >9 PATIENT WAS FASTINGP ERFORMED BY: [employer] [facility] [id number] Information: [id number] Immunoglobulins A/E/G/M, Ser umOrdered By: Rice Cleaning Machine Tender on 08-14-2013 IgA mass conc 393 mg/dL Normal 91-414 Comprehensi ve Internal Medicine Work Phone: IgE Qn 84 {IU/mL} Normal 0-100 [facility] Work Phone: IgG mass conc 1648 mg/dL Abnormal 700-1600 Comprehensi ve [facility] Work Phone: IgM mass conc 345 mg/dL Abnormal 40-230 Comprehensi ve [facility] Medicine Work Phone: LIPID PANEL ([id number])Ordered B y: Rice Cleaning Machine Tender on 08-14-2013 Cholesterol in HDL mass conc 33 mg/dL Abnormal [facility] Work Phone: Comment on above: According to ATP-III Guidelines, HDL-C >59 mg/dL is considered anegative risk factor for CHD. PATIENT WAS FASTINGP ERFORMED BY: [employer]6370 [address] [facility] World LanguageAtrium Health [facility] [id number] Cholesterol in LDL mass conc 105 mg/dL Abnormal 0-99 [facility] Work Phone: Comment on above: PATIENT WAS FASTINGP ERFORMED BY: [employer]6370 [facility] [id number] Cholesterol in LDL/Cholesterol in HDL mass ratio 3.2 {ratio_units} Normal 0.0-3.6 [facility] Work Phone: Comment on above: PATIENT WAS FASTINGP ERFORMED BY: EVELIN LabCoflorentin WoodRzhfer5469 [facility] [id number] Cholesterol in VLDL mass conc 59 mg/dL Abnormal 5-40 [facility] Work Phone: Comment on above: PATIENT WAS FASTINGP ERFORMED BY: EVELIN LabCoflorentin WoodZhfkqr6310 [facility] [id number] Cholesterol mass conc 197 mg/dL Normal 100-199 [facility] prehensive Internal Medicine Work Phone: Comment on above: PATIENT WAS FASTINGP ERFORMED BY: EVELIN LabCoflorentin WoodAveqzt7521 [facility] [id number] Triglyceride mass conc 295 mg/dL Abnormal 0-149 [facility] Work Phone: Comment on above: PATIENT WAS FASTINGP ERFORMED BY: EVELIN LabNataly Lksonp8295 [facility] [id number] METABOLIC PANEL, COMPREHENSI VE ([id number])Ordered By: Rice Cleaning Machine Tender on 08-14-2013 Albumin mass conc 4.2 g/dL Normal 3.5-5.5 Compreh [facility] Work Phone: Comment on above: PATIENT WAS FASTINGP ERFORMED BY: EVELIN [facility] Gztcyx2642 [facility] [id number] Albumin/Globulin mass ratio 1.6 {ratio} Normal 1.1-2.5 [facility] Work Phone: Comment on above: PATIENT WAS FASTINGP ERFORMED BY: EVELIN LabCo Ppdfqo1568 [facility] [id number] ALP enzyme act/vol 96 [iU]/L Normal 39-117 Compre [facility] Internal Medicine Work Phone: Comment on above: PATIENT WAS FASTINGP ERFORMED BY: EVELIN [facility] Vfpakx0884 [facility] [id number] ALT enzyme act/vol 20 [iU]/L Normal 0-44 Compre [facility] Medicine Work Phone: Comment on above: PATIENT WAS FASTINGP ERFORMED BY: EVELIN [facility] Zouwgc9207 Inf[address] RoadDublin [place] [id number] AST enzyme act/vol 23 [iU]/L Normal 0-40 Compre [facility] Internal Medicine Work Phone: Comment on above: PATIENT WAS FASTINGP ERFORMED BY: EVELIN [facility] Nlkpga5119 Infante RoadDublin [place] [id number] Bilirubin mass conc 0.4 mg/dL Normal 0.0-1.2 Compr ensive Internal Medicine Work Phone: Comment on above: PATIENT WAS FASTINGP ERFORMED BY: EVELIN [facility] Hvjtrs6479 Infante RoadDublin [place] [id number] Calcium mass conc 9.0 mg/dL Normal 8.7-10.2 Compreh [facility] Work Phone: Comment on above: PATIENT WAS FASTINGP ERFORMED BY: EVELIN LabRay WoodGxtfcu3041 Infante RoadCritical Access Hospitalin [place] [id number] Chloride molar conc 102 mmol/L Normal 97-108 Compr [facility] Internal Medicine Work Phone: Comment on above: PATIENT WAS FASTINGP ERFORMED BY: EVELIN LabRay WoodWajjrl4770 Infante RoadCritical Access Hospitalin [place] [id number] CO2 molar conc 22 mmol/L Normal 19-28 Comprehens [place] [facility] Work Phone: Comment on above: PATIENT WAS FASTINGP ERFORMED BY: EVELIN LabRay WoodRlslyj9775 Infante RoadCritical Access Hospitalin [place] [id number] Creatinine mass conc 0.96 mg/dL Normal 0.76-1.27 [facility] Internal Medicine Work Phone: Comment on above: PATIENT WAS FASTINGP ERFORMED BY: EVELIN LabRay WoodWapiar2959 [address] RoadDublin [place] [id number] GFR/1.73 sq M predicted among blacks CKD-EPI vol rate/area (S/P/Bld) 105 mL/min/1.73 Normal Comprehensiv e Internal Medicine Work Phone: Comment on above: PATIENT WAS FASTINGP ERFORMED BY: EVELIN LabCoflorentin Pghwyx9334 Infante RoadCritical Access Hospitalin [place] [id number] GFR/1.73 sq M predicted among non-blacks CKD-EPI vol rate/area (S/P/Bld) 91 mL/min/1.73 Normal [facility] Work Phone: Comment on above: PATIENT WAS FASTINGP ERFORMED BY: EVELIN LabCo Gyvxrs5878 [facility] [id number] Globulin (S) [Mass/Vol] 2.6 g/dL Normal 1.5-4.5 [facility] Work Phone: Comment on above: PATIENT WAS FASTINGP ERFORMED BY: EVELIN LabCo Rfmdde1145 [facility] [id number] Globulin Calculated mass conc (S) 2.6 g/dL Normal 1.5-4.5 [facility] Work Phone: Glucose mass conc 72 mg/dL Normal 65-99 Compreh ensive Internal Medicine Work Phone: Comment on above: PATIENT WAS FASTINGP ERFORMED BY: EVELIN LabSaint [facility] Jajgzl9490 [facility] [id number] Potassium molar conc 4.8 mmol/L Normal 3.5-5.2 Comp rehensive Internal Medicine Work Phone: Comment on above: PATIENT WAS FASTINGP ERFORMED BY: EVELIN LabCoflorentin WoodFkokvl6555 [facility] [id number] Protein mass conc 6.8 g/dL Normal 6.0-8.5 Compreh ensive Internal Medicine Work Phone: Comment on above: PATIENT WAS FASTINGP ERFORMED BY: EVELIN LabCo Pvtmlr9977 [facility] [id number] Sodium molar conc 140 mmol/L Normal 134-144 Compreh ensive Internal Medicine Work Phone: Comment on above: PATIENT WAS FASTINGP ERFORMED BY: EVELIN [facility] Xomflr8247 [address] [facility] [id number] Urea nitrogen mass conc 17 mg/dL Normal 6-24 [facility] Work Phone: Comment on above: PATIENT WAS FASTINGP ERFORMED BY: EVELIN GonzalezSaint [facility] Vphrqj1189 [facility] [id number] Urea nitrogen/Creatinine mass ratio 18 mg/mg Normal 9-20 [facility] Work Phone: Comment on above: PATIENT WAS FASTINGP ERFORMED BY: LisaSaint [facility] Kjzypo5591 [facility] [id number] MICROALBUMINOrdered By: Syst em Water Server on 08-14-2013 Albumin DL <= 20 mg/L mass conc (U) 7.7 ug/mL Normal 0.0-17.0 [facility] Work Phone: Comment on above: PATIENT WAS FASTINGP ERFORMED BY: BrainrackSaint Louis [facility] Wfztld3321 [facility] [id number] Albumin/Creatinine mass ratio (U) 5.8 {mg/g_creat} Normal 0.0-30.0 [facility] Work Phone: Comment on above: PATIENT WAS FASTINGP ERFORMED BY: LisaSaint [facility] Center Xzgzmr1315 [facility] [id number] Creatinine mass conc (U) 133.0 mg/dL Normal 22.0-328.0 [facility] Work Phone: Comment on above: PATIENT WAS FASTINGP ERFORMED BY: LisaSaint [facility] Vztftd7462 [facility] [id number] PSA (PROSTATE SPECIFIC ANTIG EN) (V76.44)Ordered By: Rice Cleaning Machine Tender on 08-14-2013 Prostate specific Ag mass conc 2.1 ng/mL Normal 0.0-4.0 [facility] Work Phone: Comment on above: Dee Dee ECLIA methodol ogy. .According to the [place] [employer], Serum PSA shoulddecrease and remain at undetectable levels after radicalprostatectomy. The AUA defines biochemical recurrence as an initialPSA value 0.2 ng/mL or greater followed by a subsequent confirmatoryPSA value 0.2 ng/mL or greater.Values obtained with different assay methods or kits cannot be usedinterchangeably. Results cannot be interpreted as absolute evidenceof the presence or absence of malignant disease. PATIENT WAS FASTINGP ERFORMED BY: CB LabMymichigan Medical Center Gladwin6370 [address] RoadDublin [place] [id number] SED RATE ERYTHROCYTE ([id number]) Ordered By: Rice Cleaning Machine Tender on 08-14-2013 ESR Velocity (Bld) 2 mm/h Normal 0-30 [facility] Internal Medicine Work Phone: Comment on above: PATIENT WAS FASTINGP ERFORMED BY: ReachD[employer] LabCvgram.me Xkzffp7020 Inf[address] RoadDublin [place] [id number] TSH ([id number])Ordered By: Systchrista m Water Server on 08-14-2013 Thyrotropin Qn 0.877 {uIU/mL} Normal 0.450-4.50 0 [facility] Work Phone: Comment on above: PATIENT WAS FASTINGP ERFORMED BY: Car[employer] Ldxist4008 [address] RoadDublin [place] [id number] VITAMIN B-12 (CYANOCOBALAMIN ) ([id number])Ordered By: Rice Cleaning Machine Tender on 08-14-2013 Cobalamin (Vitamin B12) mass conc 327 pg/mL Normal 211-946 [facility] Work Phone: Comment on above: PATIENT WAS FASTINGP ERFORMED BY: [employer] Jbhxtp8479 [address] RoadDublin [place] [id number] Vitamin D Hydroxy (69685)Ord ered By: Rice Cleaning Machine Tender on 08-14-2013 25-Hydroxyvitamin D2+25-Hydroxyvitamin D3 mass conc 10.2 ng/mL Abnormal 30.0-100.0 [facility] Work Phone: Comment on above: Vitamin D deficiency has been defined by the [place] of[place]icine and an Endocrine Society practice guideline as alevel of serum 25-OH vitamin D less than 20 ng/mL (1,2).The Endocrine Society went on to further define vitamin Dinsufficiency as a level between 21 and 29 ng/mL (2).1. IOM ([place] of Medicine). 2010. Dietary reference intakes for calcium and D. [place]: The National Academies Press.2. Sheryl MF, Driss [place], Dennis FIERRO, et al. Evaluation, treatment, and prevention of vitamin D deficiency: an Endocrine Society clinical practice guideline. JCEM. 2010; 96(7):1911-30. PATIENT WAS FASTINGP ERFORMED BY: LabSaint [facility] Nkegss5527 [facility] [id number] Written AuthorizationOrdered By: Rice Cleaning Machine Tender on 08-14-2013 Written Authorization WAR Normal Com prehensive Internal Medicine Work Phone: Comment on above: Written Authorizatio n Received.Authorization received from DR.DEBRA OLSON [id number] by Yvonne Echavarria Vital Signs Date Time Vital Sign Value Performing Clinician Facility 04-28-2019 15:29-0400 BMI (Body Mass Index) 31.1 kg/m2 Genna Goldman [facility] Work Phone: 04-28-2019 15:29-0400 Body Temperature 97.2 [degF] Genna Goldman [facility] Work Phone: Comment on above: Method: Temporal 04-28-2019 15:29-0400 Body weight 108.41 kg Genna Goldman [facility] Work Phone: 04-28-2019 15:29-0400 BP Diastolic 78 mm[Hg] Genna Goldman [facility] Work Phone: Comment on above: Patient Position: Sitting; Cuff Location : Left Arm; Cuff Size: Standard 04-28-2019 15:29-0400 BP Systolic 129 mm[Hg] Genna Goldman [facility] Work Phone: Comment on above: Patient Position: Sitting; Cuff Location : Left Arm; Cuff Size: Standard 04-28-2019 15:29-0400 BSA (Body Surface Area) 2.33 m2 Genna Goldman [facility] Work Phone: 04-28-2019 15:29-0400 Height 186.69 cm Genna Goldman [facility] Work Phone: 04-28-2019 15:29-0400 Pulse (Heart Rate) 72 /min Genna Goldman [facility] Work Phone: Comment on above: Pattern: Regular 04-28-2019 15:29-0400 Pulse Oximetry 98 % Genna Goldman [facility] Work Phone: Comment on above: Room air 04-28-2019 15:29-0400 Respiratory Rate 16 /min Genna Bennett [facility] Work Phone: Comment on above: Pattern: Unlabored 09-02-2018 10:08-0500 BMI (Body Mass Index) 30.63 kg/m2 Genna Goldman [facility] Work Phone: 09-02-2018 10:08-0500 Body Temperature 97.5 [degF] Genna Goldman [facility] Work Phone: Comment on above: Method: Temporal 09-02-2018 10:08-0500 Body weight 106.77 kg Genna Goldman [facility] Work Phone: 09-02-2018 10:08-0500 BP Diastolic 70 mm[Hg] Genna Goldman [facility] Work Phone: Comment on above: Patient Position: Sitting; Cuff Location : Left Arm; Cuff Size: Standard 09-02-2018 10:08-0500 BP Systolic 124 mm[Hg] Genna Goldman [facility] Work Phone: Comment on above: Patient Position: Sitting; Cuff Location : Left Arm; Cuff Size: Standard 09-02-2018 10:08-0500 BSA (Body Surface Area) 2.32 m2 Genna Goldman [facility] Work Phone: 09-02-2018 10:08-0500 Height 186.69 cm Genna Goldman [facility] Work Phone: 09-02-2018 10:08-0500 Pulse (Heart Rate) 68 /min Genna Bennett [facility] Work Phone: Comment on above: Pattern: Regular 09-02-2018 10:08-0500 Pulse Oximetry 98 % Genna Goldman [facility] Work Phone: Comment on above: Room air 09-02-2018 10:08-0500 Respiratory Rate 16 /min Genna Goldman [facility] Work Phone: Comment on above: Pattern: Unlabored 09-02-2018 10:08-0500 Weight 106.77 kg Genna Bennett [facility] Work Phone: 06-14-2018 14:26-0400 BMI (Body Mass Index) 30.63 kg/m2 Genna Goldman [facility] Work Phone: 06-14-2018 14:26-0400 Body weight 106.77 kg Genna Bennett [facility] Work Phone: 06-14-2018 14:26-0400 BP Diastolic 88 mm[Hg] Genna Goldman [facility] Work Phone: Comment on above: Patient Position: Sitting; Cuff Location : Left Arm; Cuff Size: Large 06-14-2018 14:26-0400 BP Systolic 128 mm[Hg] Genna Goldman [facility] Work Phone: Comment on above: Patient Position: Sitting; Cuff Location : Left Arm; Cuff Size: Large 06-14-2018 14:26-0400 BSA (Body Surface Area) 2.32 m2 Genna Goldman [facility] Work Phone: 06-14-2018 14:0400 Height 186.69 cm Genna Goldman [facility] Work Phone: 06-14-2018 14:26-0400 Pulse (Heart Rate) 61 /min Genna Bennett [facility] Work Phone: Comment on above: Pattern: Regular 06-14-2018 14:-0400 Pulse Oximetry 98 % Genna Bennett [facility] Work Phone: Comment on above: Room air 06-14-2018 14:26-0400 Respiratory Rate 18 /min Genna Bennett [facility] Work Phone: Comment on above: Pattern: Unlabored 06-14-2018 14:26-0400 Weight 106.77 kg Genna Bennett [facility] Work Phone: 02-02-2016 11:45-0400 BMI (Body Mass Index) 29.41 kg/m2 Genna Goldman [facility] Internal Medicine Work Phone: 02-02-2016 11:45-0400 Body Temperature 96.4 [degF] Genna Goldman [facility] Work Phone: Comment on above: Method: Temporal 02-02-2016 11:45-0400 Body weight 102.51 kg Genna Bennett [facility] Work Phone: 02-02-2016 11:45-0400 BP Diastolic 86 mm[Hg] Genna Goldman [facility] Work Phone: Comment on above: Patient Position: Sitting; Cuff Location : Left Arm; Cuff Size: Standard 02-02-2016 11:45-0400 BP Systolic 120 mm[Hg] Genna Goldman [facility] Work Phone: Comment on above: Patient Position: Sitting; Cuff Location : Left Arm; Cuff Size: Standard 02-02-2016 11:45-0400 BSA (Body Surface Area) 2.28 m2 Genna Goldman [facility] Work Phone: 02-02-2016 11:45-0400 Height 186.69 cm Genna Goldman [facility] Work Phone: 02-02-2016 11:45-0400 Pulse (Heart Rate) 60 /min Genna Goldman [facility] Internal Medicine Work Phone: Comment on above: Pattern: Regular 02-02-2016 11:45-0400 Pulse Oximetry 98 % Genna Goldman [facility] Internal Medicine Work Phone: Comment on above: Room air 02-02-2016 11:45-0400 Respiratory Rate 16 /min Genna Bennett [facility] Work Phone: Comment on above: Pattern: Unlabored 02-02-2016 11:45-0400 Weight 102.51 kg Genna Goldman [facility] Internal Medicine Work Phone: 01-05-2016 15:10-0400 BMI (Body Mass Index) 28.63 kg/m2 Genna Goldman [facility] Medicine Work Phone: 01-05-2016 15:10-0400 Body Temperature 96.9 [degF] Genna Goldman [facility] Work Phone: Comment on above: Method: Temporal 01-05-2016 15:10-0400 Body weight 99.79 kg Genna Bennett [facility] Work Phone: 01-05-2016 15:10-0400 BP Diastolic 76 mm[Hg] Genna Goldman [facility] Work Phone: Comment on above: Patient Position: Sitting; Cuff Location : Left Arm; Cuff Size: Standard 01-05-2016 15:10-0400 BP Systolic 104 mm[Hg] Genna Goldman [facility] Work Phone: Comment on above: Patient Position: Sitting; Cuff Location : Left Arm; Cuff Size: Standard 01-05-2016 15:10-0400 BSA (Body Surface Area) 2.25 m2 Genna Goldman [facility] Work Phone: 01-05-2016 15:10-0400 Height 186.69 cm Genna Goldman [facility] Internal Medicine Work Phone: 01-05-2016 15:10-0400 Pulse (Heart Rate) 72 /min Genna Goldman [facility] Internal Medicine Work Phone: Comment on above: Pattern: Regular 01-05-2016 15:10-0400 Pulse Oximetry 97 % Genna Bennett [facility] Work Phone: Comment on above: Room air 01-05-2016 15:10-0400 Respiratory Rate 16 /min Genna Bennett [facility] Work Phone: Comment on above: Pattern: Unlabored 01-05-2016 15:10-0400 Weight 99.79 kg Genna Bennett [facility] Work Phone: 06-29-2015 10:53-0400 BMI (Body Mass Index) 28.76 kg/m2 [facility] Work Phone: 06-29-2015 10:53-0400 Body Temperature 97.2 [degF] [facility] Work Phone: Comment on above: Method: Temporal 06-29-2015 10:53-0400 Body weight 100.25 kg [facility] Work Phone: 06-29-2015 10:53-0400 BP Diastolic 70 mm[Hg] Genna Goldman [facility] Work Phone: Comment on above: Patient Position: Sitting; Cuff Location : Left Arm; Cuff Size: Standard 06-29-2015 10:53-0400 BP Systolic 108 mm[Hg] Genna Goldman [facility] Work Phone: Comment on above: Patient Position: Sitting; Cuff Location : Left Arm; Cuff Size: Standard 06-29-2015 10:53-0400 BSA (Body Surface Area) 2.26 m2 Genna Goldman [facility] Work Phone: 06-29-2015 10:53-0400 Height 186.69 cm Genna Goldman [facility] Work Phone: 06-29-2015 10:53-0400 Pulse (Heart Rate) 64 /min Genna Goldman [facility] Work Phone: Comment on above: Pattern: Regular 06-29-2015 10:53-0400 Pulse Oximetry 98 % Genna Goldman [facility] Work Phone: Comment on above: Room air 06-29-2015 10:53-0400 Respiratory Rate 16 /min Genna Goldman [facility] Work Phone: Comment on above: Pattern: Unlabored 06-29-2015 10:53-0400 Weight 100.25 kg [facility] Work Phone: 03-31-2015 14:39-0400 BMI (Body Mass Index) 29.67 kg/m2 Genna Goldman [facility] Work Phone: 03-31-2015 14:39-0400 Body Temperature 97.3 [degF] [facility] Work Phone: Comment on above: Method: Oral 03-31-2015 14:39-0400 Body weight 103.42 kg [facility] Work Phone: 03-31-2015 14:39-0400 BP Diastolic 90 mm[Hg] Genna Goldman [facility] Work Phone: Comment on above: Patient Position: Sitting; Cuff Location : Left Arm; Cuff Size: Standard 03-31-2015 14:39-0400 BP Systolic 128 mm[Hg] [facility] Work Phone: Comment on above: Patient Position: Sitting; Cuff Location : Left Arm; Cuff Size: Standard 03-31-2015 14:39-0400 BSA (Body Surface Area) 2.29 m2 Genna Goldman [facility] Work Phone: 03-31-2015 14:39-0400 Height 186.69 cm Genna Goldman [facility] Work Phone: 03-31-2015 14:39-0400 Pulse (Heart Rate) 62 /min Genna Goldman [facility] Work Phone: Comment on above: Pattern: Regular 03-31-2015 14:39-0400 Respiratory Rate 16 /min Genna Goldman [facility] Work Phone: Comment on above: Pattern: Unlabored 03-31-2015 14:39-0400 Weight 103.42 kg Genna Goldman [facility] Work Phone: 09-21-2014 16:27-0500 BMI (Body Mass Index) 28.89 kg/m2 Genna Goldman [facility] Work Phone: 09-21-2014 16:27-0500 Body Temperature 97.6 [degF] Genna Goldman [facility] Work Phone: 09-21-2014 16:27-0500 Body weight 100.7 kg Genna Goldman [facility] Work Phone: 09-21-2014 16:27-0500 BP Diastolic 70 mm[Hg] Genna Goldman [facility] Work Phone: Comment on above: Patient Position: Sitting; Cuff Location : Left Arm; Cuff Size: Standard 09-21-2014 16:27-0500 BP Systolic 108 mm[Hg] Genna Goldman [facility] Work Phone: Comment on above: Patient Position: Sitting; Cuff Location : Left Arm; Cuff Size: Standard 09-21-2014 16:27-0500 BSA (Body Surface Area) 2.26 m2 Genna Goldman [facility] Work Phone: 09-21-2014 16:27-0500 Height 186.69 cm Genna Goldman [facility] Work Phone: 09-21-2014 16:27-0500 Pulse (Heart Rate) 80 /min Genna Goldman [facility] Work Phone: Comment on above: Pattern: Regular 09-21-2014 16:27-0500 Respiratory Rate 16 /min Genna Goldman [facility] Work Phone: Comment on above: Pattern: Unlabored 09-21-2014 16:27-0500 Weight 100.7 kg Genna Goldman [facility] Work Phone: 08-19-2014 14:02-0500 BMI (Body Mass Index) 28.76 kg/m2 Genna Goldman [facility] Work Phone: 08-19-2014 14:02-0500 Body Temperature 96.7 [degF] Genna Goldman [facility] Work Phone: 08-19-2014 14:02-0500 Body weight 100.25 kg Genna Goldman [facility] Work Phone: 08-19-2014 14:02-0500 BP Diastolic 90 mm[Hg] Genna Goldman [facility] Work Phone: Comment on above: Patient Position: Sitting; Cuff Location : Left Arm; Cuff Size: Large 08-19-2014 14:02-0500 BP Systolic 128 mm[Hg] Genna Goldman [facility] Work Phone: Comment on above: Patient Position: Sitting; Cuff Location : Left Arm; Cuff Size: Large 08-19-2014 14:02-0500 BSA (Body Surface Area) 2.26 m2 Genna Goldman [facility] Work Phone: 08-19-2014 14:02-0500 Height 186.69 cm Genna Goldman [facility] Work Phone: 08-19-2014 14:02-0500 Pulse (Heart Rate) 86 /min Genna Goldman [facility] Work Phone: Comment on above: Pattern: Regular 08-19-2014 14:02-0500 Respiratory Rate 16 /min Genna Goldman [facility] Work Phone: Comment on above: Pattern: Unlabored 08-19-2014 14:02-0500 Weight 100.25 kg Genna Goldman [facility] Work Phone: 08-11-2014 11:49-0500 BMI (Body Mass Index) 28.76 kg/m2 Genna Goldman [facility] Work Phone: 08-11-2014 11:49-0500 Body Temperature 96.7 [degF] Genna Goldman [facility] Work Phone: 08-11-2014 11:49-0500 Body weight 100.25 kg Genna Goldman [facility] Work Phone: 08-11-2014 11:49-0500 BP Diastolic 90 mm[Hg] Genna Goldman [facility] Work Phone: Comment on above: Patient Position: Sitting; Cuff Location : Left Arm; Cuff Size: Large 08-11-2014 11:49-0500 BP Systolic 138 mm[Hg] Genna Goldman [facility] Work Phone: Comment on above: Patient Position: Sitting; Cuff Location : Left Arm; Cuff Size: Large 08-11-2014 11:49-0500 BSA (Body Surface Area) 2.26 m2 Genna Goldman [facility] Work Phone: 08-11-2014 11:49-0500 Height 186.69 cm Genna Goldman [facility] Work Phone: 08-11-2014 11:49-0500 Pulse (Heart Rate) 64 /min Genna Goldman [facility] Work Phone: Comment on above: Pattern: Regular 08-11-2014 11:49-0500 Respiratory Rate 16 /min [facility] Work Phone: Comment on above: Pattern: Unlabored 08-11-2014 11:49-0500 Weight 100.25 kg Genna Goldman [facility] Work Phone: 03-23-2014 10:44-0400 BMI (Body Mass Index) 28.89 kg/m2 [facility] Work Phone: 03-23-2014 10:44-0400 Body Temperature 98 [degF] Genna Goldman [facility] Work Phone: 03-23-2014 10:44-0400 Body weight 100.7 kg Genna Goldman [facility] Work Phone: 03-23-2014 10:44-0400 BP Diastolic 88 mm[Hg] Genna Goldman [facility] Work Phone: Comment on above: Patient Position: Sitting; Cuff Location : Left Arm; Cuff Size: Large 03-23-2014 10:44-0400 BP Systolic 132 mm[Hg] Genna Goldman [facility] Work Phone: Comment on above: Patient Position: Sitting; Cuff Location : Left Arm; Cuff Size: Large 03-23-2014 10:44-0400 BSA (Body Surface Area) 2.26 m2 Genna Goldman [facility] Work Phone: 03-23-2014 10:44-0400 Height 186.69 cm eGnna Goldman [facility] Work Phone: 03-23-2014 10:44-0400 Pulse (Heart Rate) 72 /min Genna Goldman [facility] Work Phone: Comment on above: Pattern: Regular 03-23-2014 10:44-0400 Respiratory Rate 16 /min Genna Goldman [facility] Work Phone: Comment on above: Pattern: Unlabored 03-23-2014 10:44-0400 Weight 100.7 kg Genna Goldman [facility] Work Phone: 01-19-2014 11:24-0400 BMI (Body Mass Index) 28.24 kg/m2 Genna Goldman [facility] Work Phone: 01-19-2014 11:24-0400 Body Temperature 97.8 [degF] Genna Goldman [facility] Work Phone: 01-19-2014 11:24-0400 Body weight 98.43 kg Genna Goldman [facility] Work Phone: 01-19-2014 11:24-0400 BP Diastolic 70 mm[Hg] Genna Goldman [facility] Work Phone: Comment on above: Patient Position: Sitting; Cuff Location : Left Arm; Cuff Size: Large 01-19-2014 11:24-0400 BP Systolic 102 mm[Hg] Genna Goldman [facility] Work Phone: Comment on above: Patient Position: Sitting; Cuff Location : Left Arm; Cuff Size: Large 01-19-2014 11:24-0400 BSA (Body Surface Area) 2.24 m2 Genna Goldman [facility] Work Phone: 01-19-2014 11:24-0400 Height 186.69 cm Genna Goldman [facility] Work Phone: 01-19-2014 11:24-0400 Pulse (Heart Rate) 78 /min Genna Goldman [facility] Work Phone: Comment on above: Pattern: Regular 01-19-2014 11:24-0400 Respiratory Rate 16 /min Genna Goldman [facility] Work Phone: Comment on above: Pattern: Unlabored 01-19-2014 11:24-0400 Weight 98.43 kg Genna Goldman [facility] Work Phone: 11-24-2013 10:39-0400 BP Diastolic 84 mm[Hg] Genna Goldman [facility] Work Phone: Comment on above: Patient Position: Sitting 11-24-2013 10:39-0400 BP Systolic 126 mm[Hg] Genna Goldman [facility] Work Phone: Comment on above: Patient Position: Sitting 11-24-2013 09:58-0400 BMI (Body Mass Index) 28.24 kg/m2 Genna Goldman [facility] Work Phone: 11-24-2013 09:58-0400 Body Temperature 97 [degF] Genna Goldman [facility] Work Phone: 11-24-2013 09:58-0400 Body weight 98.43 kg Genna Goldman [facility] Work Phone: 11-24-2013 09:58-0400 BP Diastolic 90 mm[Hg] Genna Goldman [facility] Work Phone: Comment on above: Patient Position: Sitting; Cuff Location : Left Arm; Cuff Size: Large 11-24-2013 09:58-0400 BP Systolic 134 mm[Hg] Genna Goldman [facility] Work Phone: Comment on above: Patient Position: Sitting; Cuff Location : Left Arm; Cuff Size: Large 11-24-2013 09:58-0400 BSA (Body Surface Area) 2.24 m2 Genna Goldman [facility] Work Phone: 11-24-2013 09:58-0400 Height 186.69 cm Genna Goldman [facility] Work Phone: 11-24-2013 09:58-0400 Pulse (Heart Rate) 56 /min Genna Goldman [facility] Work Phone: Comment on above: Pattern: Regular 11-24-2013 09:58-0400 Respiratory Rate 16 /min Genna Goldman [facility] Work Phone: Comment on above: Pattern: Unlabored 11-24-2013 09:58-0400 Weight 98.43 kg Genna Goldman [facility] Work Phone: 09-01-2013 09:36-0500 BMI (Body Mass Index) 27.46 kg/m2 [facility] Work Phone: 09-01-2013 09:36-0500 Body Temperature 98.2 [degF] [facility] Work Phone: Comment on above: Method: Oral 09-01-2013 09:36-0500 Body weight 95.71 kg [facility] Work Phone: 09-01-2013 09:36-0500 BP Diastolic 72 mm[Hg] [facility] Work Phone: Comment on above: Patient Position: Sitting; Cuff Location : Left Arm; Cuff Size: Standard 09-01-2013 09:36-0500 BP Systolic 120 mm[Hg] [facility] Work Phone: Comment on above: Patient Position: Sitting; Cuff Location : Left Arm; Cuff Size: Standard 09-01-2013 09:36-0500 BSA (Body Surface Area) 2.21 m2 [facility] Work Phone: 09-01-2013 09:36-0500 Height 186.69 cm [facility] Work Phone: 09-01-2013 09:36-0500 Pulse (Heart Rate) 70 /min [facility] Work Phone: Comment on above: Pattern: Regular 09-01-2013 09:36-0500 Pulse Oximetry 98 % Genna Goldman [facility] Work Phone: Comment on above: Room air 09-01-2013 09:36-0500 Respiratory Rate 16 /min [facility] Work Phone: Comment on above: Pattern: Unlabored 09-01-2013 09:36-0500 Weight 95.71 kg [facility] Work Phone: 10-09-2012 14:49-0500 BMI (Body Mass Index) 27.46 kg/m2 Genna Goldman [facility] Work Phone: 10-09-2012 14:49-0500 Body Temperature 97.9 [degF] [facility] Work Phone: 10-09-2012 14:49-0500 Body weight 95.71 kg [facility] Work Phone: 10-09-2012 14:49-0500 BP Diastolic 76 mm[Hg] [facility] Work Phone: Comment on above: Patient Position: Sitting; Cuff Location : Left Arm; Cuff Size: Large 10-09-2012 14:49-0500 BP Systolic 106 mm[Hg] [facility] Work Phone: Comment on above: Patient Position: Sitting; Cuff Location : Left Arm; Cuff Size: Large 10-09-2012 14:49-0500 BSA (Body Surface Area) 2.21 m2 [facility] Work Phone: 10-09-2012 14:49-0500 Height 186.69 cm [facility] Work Phone: 10-09-2012 14:49-0500 Pulse (Heart Rate) 80 /min [facility] Work Phone: Comment on above: Pattern: Regular 10-09-2012 14:49-0500 Respiratory Rate 16 /min [facility] Work Phone: Comment on above: Pattern: Unlabored 10-09-2012 14:49-0500 Weight 95.71 kg Genna Goldman [facility] Work Phone: Encounters Encounter Date Encounter Type Care Provider Facility Start: 03-14-2024 End: 03-14-2024 ambulatory [facility] Facility:[facility] Start: 02-28-2024 End: 02-28-2024 ambulatory [facility] Facility:[facility] Start: 12-06-2023 End: 12-06-2023 ambulatory [facility] Work Phone: Start: 12-06-2023 End: 12-06-2023 Patient encounter procedure [facility] Start: 12-06-2023 End: 12-06-2023 ambulatory Shay Olvera Facility:[facility] Start: 02-23-2023 End: 02-23-2023 ambulatory [facility] Work Phone: Start: 02-23-2023 End: 02-23-2023 Patient encounter procedure [facility] Start: 02-13-2023 End: 02-13-2023 Patient encounter procedure [facility] Start: 12-31-2020 End: 12-31-2020 Telephone encounter Jennifer (Continuity Writer) Edel Pérez Work Phone: [facility] Adult Comment on above: recall colonoscopy Start: 12-16-2020 End: 12-16-2020 Telephone encounter Jennifer Pérez HAND MOLDER AND CASTER.STUDENT CAREER DEVELOPMENT SPECIALIST Work Phone: [facility] Provider Adult Comment on above: recall colonoscopy Start: 03-16-2020 End: 03-16-2020 Subsequent hospital visit by physician David Holly Work Phone: [facility] Comment on above: Atherosclerosis of n 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, left leg (HCC); Varicose veins of left lower extremity with pain Start: 04-28-2019 End: 04-28-2019 Office outpatient visit 15 minutes [facility] Start: 09-02-2018 End: 09-02-2018 Office outpatient visit 25 minutes [facility] Start: 08-26-2018 Patient encounter procedure [facility] Start: 06-14-2018 End: 06-14-2018 Office outpatient visit 25 minutes [facility] Start: 02-02-2016 End: 02-03-2016 Office outpatient visit 25 minutes [facility] Start: 01-05-2016 End: 01-07-2016 Office outpatient visit 25 minutes [facility] Start: 06-29-2015 End: 06-29-2015 Office outpatient visit 25 minutes [facility] Start: 03-31-2015 End: 04-01-2015 Office outpatient visit 25 minutes [facility] Start: 09-21-2014 End: 09-22-2014 Office outpatient visit 25 minutes Genna Goldman [facility] Start: 08-19-2014 End: 08-23-2014 Office outpatient visit 25 minutes Genna Goldman [facility] Start: 08-14-2014 End: 08-14-2014 Phone Encounter Genna Goldman [facility] Start: 08-11-2014 End: 08-11-2014 Office outpatient visit 25 minutes Genna Goldman [facility] Start: 03-23-2014 End: 03-23-2014 Patient encounter procedure Genna Goldman [facility] Start: 01-19-2014 End: 01-19-2014 Patient encounter procedure Genna Goldman [facility] Start: 12-19-2013 End: 12-19-2013 Phone Encounter Genna Goldman [facility] Start: 11-24-2013 End: 11-24-2013 Patient encounter procedure Genna Goldman [facility] Start: 09-01-2013 End: 09-01-2013 Patient encounter procedure Genna Goldman [facility] Start: 10-09-2012 End: 10-10-2012 Patient encounter procedure Genna Goldman [facility] Procedures Date Procedure Procedure Detail Performing Clinician Start: 02-23-2023 CT of chest without contrast Start: 03-16-2020 N-invas physiologic std lxtr art compl bi David Holly Work Phone: Start: 06-26-2018 End: 06-26-[address] Lung Screening Comments: See Note; NOTES: [facility] Imaging Services [address] [place] [id number] Lung Screening MR#: [id number] Acct: [id number] Name: KERMIT IGNACIO Rep #: [id number] : 1960 M [id number] From: Faustino José DO PCP: Genna Goldman DO Status: REG CLI Study: Low Dose CT Lung Screening Date of Exam: 06/26/18 Exam# [id number] Ordering Dr: Genna Goldman DO STUDY: LOW DOSE CT LUNG CANCER SCREENING REASON FOR EXAM: Male, 58 years old. 30 pack-year smoking history. RADIATION DOSAGE (If Supplied By Facility): CTDIvol = ( 3.40 ) mGy, DLP = ( 103.82 ) mGycm TECHNIQUE: No contrast was administered. Low dose technique was utilized (average mAS-38 and kVp 120). 1.25 mm axial source images with a slice interval of 1.25-mm were reconstructed in lung windows. 2.5 mm axial source images with a slice interval of 2.5-mm were reconstructed in lung windows. 5.0 mm axial source images with a slice interval of 5.0-mm were reconstructed in soft tissue windows. Nodule measured using lung windows on PACS and/or independent workstation with automated measurement of minimum and maximum diameter. Nodule measurement reported as average diameter rounded to the nearest whole number. Growth is defined as an increase ins size of greater than 1.5 mm. # of Images: 523 COMPARISON: CT of the chest, January 13, 2016. NODULES: Nodule #: 1 Density: Solid Lung location: Right upper lobe: Along the horizontal fissure Location in series: Series Number: 1002 Image: 143 Size - D1 x D2 mm: 8 x 6 mm: 7 mm average diameter Margin: Smooth Shape: Teardrop Calcification: No Fat: No Temporal comparison: Stable Nodule #: 2 Density: Solid Lung location: Right middle lobe: 0.5 cm from pleura Location in series: Series Number: 1002 Image: 150 Size - D1 x D2 mm: 5 x 5 mm: 5 mm average diameter Margin: Smooth Shape: Round Calcification: No Fat: No Temporal comparison: Stable Nodule #: 3 Density: Solid Lung location: Right lower lobe: Pleural-based Location in series: Series Number: 1002 Image: 171 Size - D1 x D2 mm: 4 x 4 mm: 4 mm average diameter Margin: Smooth Shape: Round Calcification: No Fat: No Temporal comparison: Stable Total lung nodules (excluding granulomas): 3 Emphysema: No Endobronchial lesion: No Aorta: There is minimal atherosclerotic tortuosity of the thoracic aorta without aneurysm. Coronary arteries: There are coronary artery calcifications. Heart: Normal Pulmonary artery: Normal Mediastinal nodes: None Other chest and abdominal findings: Minimal degenerative changes of the thoracic spine. CT/Low Dose CT Lung Screening IMPRESSION: Lung-RADS category 2 - Continue annual screening with LDCT in 12 months. There is no significant interval change. IMPORTANT NOTES FOR USE: ACR Lung-RADS Version 1.0 Assessment Categories Release Date: January 05, 2014 Category: Coded 0-4 bases on nodule(s) with highest degree of suspicion. Negative screen is defined as categories 1 and 2; a positive screen is defined as categories 3 and 4. Category 3 and 4A nodules that are unchanged on interval CT should be coded as category 2, and individuals returned to screening in 12 months. Category 4X: Category 3 or 4 nodules with additional imaging findings that increase the suspicion of lung cancer, such as spiculation, GGN that doubles in size in 1 year, enlarged lymph notes, etc. Category Modifiers: S (significant finding unrelated to lung cancer) and C (prior history of treated lung cancer) may be added to the 0-4 Lung-RADS Electronically Signed: Faustino José DO at 18:25 EDT Tel [phone], Service support , CC: Genna Goldman DO Electromedical Equipment Technician: Signed Genna Goldman Work Phone: Start: 01-13-2016 End: 01-13-2016 Chest without Contrast Comments: See Note; NOTES: [facility] Imaging Services [address] [place] [id number] [address] 4d Chest without Contrast MR#: [id number] Acct: [id number] Name: KERMIT IGNACIO Rep #: [id number] : 1960 M 55 From: Valeriy Griffin MD PCP: Harika Olson DO Status: REG CLI Study: Chest without Contrast Date of Exam: 01/13/16 Exam# [id number] Ordering Dr: Harika Olson DO STUDY: CT CHEST WITHOUT CONTRAST REASON FOR EXAM: Male, 55 years old. Right lung nodule. RADIATION DOSAGE (If Supplied By Facility): CTDIvol = ( 17.75 ) mGy, DLP = ( 708.69 ) mGycm TECHNIQUE: Transaxial imaging was performed without the administration of intravenous contrast material. Individualized dose optimization techniques were used for this CT. COMPARISON: CT chest 05/06/15, 08/28/14. FINDINGS: Redemonstrated noncalcified pleural-based right lower lobe pulmonary nodule, axial image 89, unchanged. There is no demonstrated pleural abnormality. Normal heart and pericardium. Coronary artery calcifications Normal mediastinum. Normal hilar regions. Normal unenhanced pulmonary arteries. There is atherosclerotic calcification of the aortic arch with tortuosity and elongation of the aortic arch and descending thoracic aorta. There are multi-level degenerative changes of the thoracic spine. There is no demonstrated abnormality of the visualized upper abdomen. IMPRESSION: No acute cardiopulmonary disease. Stable 5 mm subpleural nodule in the right lower lobe. CT Follow-Up of Small Pulmonary Nodules Nodule size is average of length and width. Nodule size. Low risk patient. Non smoking history. <4mm No follow-up needed (risk of malignancy <1%) 4-6mm Follow up CT at 12 months, if unchanged, no further imaging needed. 6-8mm Initial follow up at 6-12 month, then at 18-24 months if no changes. > 8mm Follow-up CT at 3, 9, and 24 months, dynamic contrast CT, PET and /or biopsy. Nodule size. High risk patients. Smoking history. <4mm Follow-up 12 months: if unchanged, no further follow-up. 4-6mm Initial follow-up at 6-12 months,then at 18-24 months if no change. 6-8mm Initial follow-up at 3-6months, then at 9-12 and 24 months if no change. >8mm Same as for low risk patient Electronically Signed: Valeriy Griffin MD at 16:51 EDT , Service support [phone], CC: Harika Olson DO Electromedical Equipment Technician: Signed Harika Olson Work Phone: Start: 05-06-2015 End: 05-07-2015 Chest without Contrast Comments: See Note; NOTES: [facility] Imaging Services [address] [place] [id number] CAT Scan Report MR#: [id number] Acct: [id number] Name: KERMIT IGNACIO Rep #: [id number] : 1960 M 55 From: Bebo Stanley DO PCP: Harika Olson DO Status: REG CLI Study: Chest without Contrast Date of Exam: 05/06/15 Exam# [id number] Ordering Dr: Harika Olson DO STUDY: CT CHEST WITHOUT CONTRAST REASON FOR EXAM: Male, 55 years old. Lung nodule followup RADIATION DOSAGE (If Supplied By Facility): CTDIvol = ( 19.49 ) mGy, DLP = ( 792.78 ) mGycm TECHNIQUE: High resolution transaxial imaging was performed without the administration of intravenous contrast material. Multiplanar coronal and sagittal images were reformatted. COMPARISON: 08/28/14 FINDINGS: The lungs are hyperinflated. The 5 mm noncalcified subpleural nodule is again seen within the right lower lobe, measuring 5 mm, axial image 89. No change from previous study. 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 No focal consolidation or new abnormality. Normal heart and pericardium. Coronary artery calcifications are seen. There are multiple small lymph nodes within the mediastinum, which are normal in size and morphology most compatible with reactive lymph hyperplasia. Normal hilar regions. Normal unenhanced pulmonary arteries. Atherosclerotic calcification of the aortic arch is seen. There are multi-level degenerative changes of the thoracic spine. There is no demonstrated abnormality of the visualized upper abdomen. IMPRESSION: COPD, similar to prior study. Unchanged 5 mm nodule within the right lower lobe. Coronary artery calcifications and mild atherosclerotic changes within the aortic arch. CT Follow-Up of Small Pulmonary Nodules Nodule size is average of length and width. Nodule size. Low risk patient. Non smoking history. <4mm No follow-up needed (risk of malignancy <1%) 4-6mm Follow up CT at 12 months, if unchanged, no further imaging needed. 6-8mm Initial follow up at 6-12 month, then at 18-24 months if no changes. > 8mm Follow-up CT at 3, 9, and 24 months, dynamic contrast CT, PET and /or biopsy. Nodule size. High risk patients. Smoking history. <4mm Follow-up 12 months: if unchanged, no further follow-up. 4-6mm Initial follow-up at 6-12 months,then at 18-24 months if no change. 6-8mm Initial follow-up at 3-6months, then at 9-12 and 24 months if no change. >8mm Same as for low risk patient Electronically Signed: Bebo Stanley DO at 5:32 EDT Tel , Service support [phone], CC: Harika Olson DO Electromedical Equipment Technician: Signed Harika Olson Work Phone: Start: 11-20-2014 End: 11-20-2014 Stress Test Echo w/o Contrast Comments: See Note; NOTES: [facility] Cardiovascular Services [address] [place] [id number] STRESS TEST REPORT 11/19/14 1234 MR#: [id number] Acct: [id number] Name: KERMIT IGNACIO Rep #: [id number] : 1960 54 From: Kavin Feliz MD Primary Care: Harika Olson DO Status: REG CLI Ordering Dr: Kavin Feliz MD Service Date: 11/19/14 Order Date: 11/19/14 Sex: M C Stress Results Protocol: Gianfranco Protocol Maximum Predicted HR: 167 bpm Target HR: 142 bpm % Maximum Predicted HR: 97 % Stage DurationHeart Rate BP (mm:ss) (bpm) Baseline 65 164/98 Gianfranco Protocol Stage I 3:00 121 172/94 Gianfranco Protocol Stage II 3:00 153 194/96 Gianfranco Protocol Stage III 0:43 162 / Recovery 92 162/92 Stress Duration: 6:43 mm:ss Maximum Stress HR: 162 bpm METS: 8 Baseline Echocardiogram Findings The estimated ejection fraction is 65 %. Normal systolic function. Normal left atrium. Normal right atrium. The mitral valve is structurally normal. No prolapse or stenosis seen. Normal tricuspid valve. Stress Echo Wall motion Data Resting WM Intermediate WM Stress WM Resting Wall Motion Wall Motion Stress No regional wall motion No regional wall motion abnormalities noted. abnormalities noted. EKG Data The baseline ECG displays normal sinus rhythm. The patient exercised according to the regular Gianfranco protocol for a total duration of 6:43. The maximum heart rate attained was 169 beats per minute. This was 101% of maximum predicted heart rate. The patient exercised into stage 3 of the Gianfranco protocol. At rest, there were no ST or T wave changes noted to suggest ischemia. No clinical angina was noted. Interpretation Summary The estimated ejection fraction is 65 %. Normal adequate treadmill echocardiogram. Negative for ischemia by ECG and ECHO criteria. No anginal symptoms noted. Rare PVC and PACs noted. Appropriate BP response to exercise. Slightly below average exercise capacity for age. Test terminated due to leg discomfort. Final LVEF= 70. ____ Ordering Physician: Kavin Feliz Performed By: Chelsea Vora RDCS 11/19/14 1522 Date Kavin Feliz MD CC: Kavin Feliz MD; Harika Olson DO Date Dictated: 11/19/14 1234 Date Transcribed: 11/19/14 1522 Electromedical Equipment Technician: Signed Genna Goldman Start: 10-30-2014 End: 10-30-2014 Echocardiogram Complete Comments: See Note; NOTES: [facility] Cardiovascular Services [address] [place] [address] Echo Complete 10/30/14 1003 MR#: [id number] Acct: [id number] Name: KERMIT IGNACIO Rep #: [id number] : 1960 54 From: Kavin Feliz MD Attending Dr: Kavin Feliz MD Status: REG CLI Ordering Dr: Kavin Feliz MD Date: 10/30/14 Location: [facility] Sex: M C Admitted: Procedure This was a 2D Doppler, Color Flow transthoracic echocardiogram. Exam performed in department. Left Ventricle Normal LV size. Mild concentric left ventricular hypertrophy. The estimated ejection fraction is 65 %. Normal diastology for age. No regional wall motion abnormalities noted. Right Ventricle Normal RV size. Normal systolic function. Atria Normal left atrium. Normal right atrium. Bubble contrast study negative for right to left interatrial shunt. Aneurysmal atrial septum. Mitral Valve The mitral valve is structurally normal. No prolapse or stenosis seen. Tricuspid Valve Normal tricuspid valve. Unable to estimate RV systolic pressure. Aortic Valve Normal aortic valve. Trisinus/trileaflet aortic valve. Pulmonic Valve Normal pulmonic valve. Trivial eccentric pulmonic valve insufficiency. Great Vessels Normal aortic root. Normal arch. Normal inferior vena cava. Inferior vena cava collapse with sniff. Pericardium/Pleural No pericardial effusion. Medication 22 gauge I.V. with prn adaptor inserted into right arm. Performed a rapid injection of agitated mix of 9 cc saline and 1cc air to assess for atrial septal defect. MMode/2D Measurements AND Calculations LVIDd: 4.7 cm IVSd: 1.3 cm Ao root diam: 3.5 cm LAV(MOD-bp): 43.7 ml LVIDs: 2.6 cm LVPWd: 1.3 cm Ao root area: 9.9 cm2 LAV(MOD-bp) Indexed: 19.1 ml/m2 RVDd: 3.1 cm FS: 43.3 % LA dimension: 3.3 cm LAV(MOD-sp2): 46.4 ml LAV(MOD-sp4): 38.1 ml LA A4 area: 15.4 cm2 RA A4 area: 13.3 cm2 Doppler Measurements AND Calculations MV E max matty: Lat Peak E' Matty: Med Peak E' Matty: Ao V2 max: 65.9 cm/sec 7.4 cm/sec 7.1 cm/sec 143.0 cm/sec MV A max matty: Ao max P.2 mmHg 65.3 cm/sec MV E/A: 1.0 LV V1 max: 104.7 cm/sec PA V2 max: 106.8 cm/sec E/E' lat: 8.9 E/ E' med: 9.3 LV V1 max P.4 mmHg PA max P.6 mmHg Interpretation Summary Mild concentric left ventricular hypertrophy. The estimated ejection fraction is 65 %. Normal diastology for age. Bubble contrast study negative for right to left interatrial shunt. Unable to estimate RV systolic pressure. There is no comparison study available. ____ Ordering Physician: Kavin Feliz Referring Physician: Harika Olson D.O. Performed By: Bronwyn Napoles RVT 10/30/14 1352 Date Kavin Feliz MD CC: Kavin Feliz MD; Harika Olson DO Date Dictated: 10/30/14 1003 Date Transcribed: 10/30/14 1352 Electromedical Equipment Technician: Concetta Goldman Start: 09-13-2014 End: 09-13-2014 Pulmonary Function Report Comp Comments: See Note; NOTES: [facility] Pulmonary Services/Neurology [address] [place] [address] Pulmonary Function Test (Comp) MR#: [id number] Acct: [id number] Name: KERMIT IGNACIO Rep #: [id number] : 1960 54 From: Gianfranco Chowdhury MD Referring Dr: Harika Olson DO Status: REG CLI Ordering Dr: Harika Olson DO Date: 09/09/14 Location: [facility] Sex: M C Date: 09/09/14 Tech.: Angela Carr Temp: PBar: Height(in.): 76 Weight(lbs.): 215 Diagnosis: COPD Medication: : Dyspnea Rest: Dyspnea Exercise: Cough: Productive (cc): Persistent: Smoker: Y How Long (pk/yrs): Stopped (yrs): Cigarettes: Cigars: SPIROMETRY Ref ULN/LLN Pre Pre Post Post Post Shannon % Ref Shannon % Ref % Chg FVC (L) 5.76 6.44 112 6.85 119 6 FEV1 (L) 4.64 4.48 97 4.78 103 7 FEV1/FVC (%) 80 70 70 FEV6 5.94 6.29 6 FEF 25-75% (L/sec) 4.62 2.89 63 3.02 65 5 FEF 50% (L/sec) 5.58 (2.9 - 8.3) 4.38 78 4.40 79 0 FEF 75% (L/sec) 2.22 (0.8 - 3.7) 0.94 43 0.88 40 -7 PEF (L/sec) 10.05 (6.2 - 13.9) 9.39 93 10.88 108 16 FET 100% (sec) 16.20 18.58 15 FIVC (L/min) 5.76 6.13 106 6.32 110 3 FEF/FIF50 0.86 1.17 36 MVV (L/min) DIFFUSION Ref ULN/LLN Pre Pre Post Post Shannon % Ref Shannon % Ref DLCO (ml/min/mmHg) 29.3 (21.0 - 37.6) 35.7 122 DL Adj (ml/mmHg/min) 29.3 (21.0 - 37.6) 35.7 122 DLCO/VA (ml/mHg/min/L) 3.97 (2.1 - 5.8) 4.23 107 VA (L) 8.44 IVC (L) 6.39 DL/VA Adj (ml/mHg/min/L) PLETHYSMOGRAPHY Ref ULN/LLN Pre Pre Post Post Post LUNG SOUNDS (BTPS) Shannon % Ref Shannon % Ref % Chg TLC (L) 7.96 (7.0 - 9.0) 7.40 93 VC (L) 5.76 6.44 112 IC (L) 3.75 (3.0 - 4.5) 4.[address] (L) 4.28 (3.1 - 5.5) 3.33 78 ERV (L) 1.87 (1.5 - 2.2) 1.35 72 RV (L) 2.60 (1.8 - 3.4) 0.96 37 RV/TLC (%) 35 (22.9 - 46.9) 13 RESISTANCE Ref Pre Pre Post Post Post Shannon % Ref Shannon % Ref % Chg Raw Total (cmH20/L/sec) Raw Insp (cmH20/L/sec) Raw Exp (cmH20/L/sec) Raw (cmH20/L/sec) 1.01 2.32 231 GAW (L/sec/cmH20) sGAW (L/s/cmH20/L) 0.232 0.117 50 Vtg (Raw) (Liters) PULMONARY FUNCTION TEST COMMENTS: Spirometry data is acceptable and reproducible. Aerosol given with unit dose albuterol. Pt gave good effort for testing. Patient requested Dr. Chowdhury to read. BRIEF HISTORY OF PRESENT ILLNESS: The patient is a 54-year-old male, currently under the care of Dr. Olson, who presents for complete pulmonary function test secondary to a diagnosis of COPD. Respiratory therapist reported good patient effort and reproducible results. INTERPRETATION: Forced expiration spirometry demonstrates no large airway obstructive ventilatory defect. There is no significant response to bronchodilators noted using strict ATS criteria. Spirograms are of good quality and do not plateau indicating slowly emptying areas of the lung. The respiratory flow volume loop shows decreased expiratory flow rates at high lung volumes consistent with small airway obstruction. Lung volumes by body plethysmography show all lung volumes within normal limits. Diffusion capacity by single breath carbon monoxide is elevated at 122% of predicted. Airway resistance is elevated. No previous studies are available for comparison. IMPRESSION: These pulmonary function tests are within normal limits. Elevated diffusion capacity and scooping at the terminal flow volume loop may be indicating of small airways disease such as seen in early COPD or possible asthma. Consider methacholine challenge or a trial of bronchodilators. 09/13/14 0722 <Electronically signed by Gianfranco Chowdhury MD> Date Gianfranco Chowdhury MD CC: Gianfranco Chowdhury MD; DR. OLSON; Harika Olson DO Date Dictated: 09/10/14 1439 Date Transcribed: 09/10/14 1647 Electromedical Equipment Technician: TC Signed Genna Goldman Start: 08-28-2014 End: 08-29-2014 Chest without Contrast Comments: See Note; NOTES: [facility] Imaging Services [address] [place] [address] CAT Scan Report MR#: [id number] Acct: [id number] Name: MATEUSKERMIT Rep #: [id number] : 1960 54 From: Jazmin Cardoza PCP: Harika Olson DO Status: REG CLI Study: Chest without Contrast Date of Exam: 08/28/14 Exam# [id number] Ordering Dr: Harika Olson DO STUDY: CT CHEST WITHOUT CONTRAST REASON FOR EXAM: Male, 54 years old. Lung nodule followup. RADIATION DOSAGE (If Supplied By Facility): CTDIvol = ( 11.17 ) mGy, DLP = ( 1966.72 ) mGycm TECHNIQUE: High resolution transaxial imaging was performed without the administration of intravenous contrast material. COMPARISON: CT abdomen: 08/15/2014 FINDINGS: There is hyperinflation of the lungs consistent with chronic obstructive lung disease (COPD). Posteriorly in the subpleural basilar regions mild fibrotic atelectasis is demonstrated bilaterally. There is a small 5 mm pleural-based noncalcified nodule seen laterally in right lower lung lobe. There is possible mild central bronchiectasis. Biapical pleural parenchymal scarring. There is no demonstrated pleural abnormality. Normal heart and pericardium. There are calcifications of the coronary arteries. There is no significant mediastinal or hilar lymphadenopathy. Normal unenhanced pulmonary arteries. There is mild atherosclerotic calcification of the aortic arch. There are mid and lower thoracic spine degenerative changes. Limitedly obtained images through the upper abdomen are unremarkable. IMPRESSION: 1. A small 5 mm pleural-based noncalcified nodule in right lower lung lobe is seen, probably benign. 2. COPD changes with possible mild central bronchiectasis and bibasilar/biapical pleural parenchymal scarring. 3. Atherosclerotic calcifications of the coronary arteries. 4. Mid and lower thoracic endplate spondylosis. Electronically Signed: Leigh Ann Cardoza MD at 10:51 EST Tel , Service support [phone], CC: Guzman Aaron MD; Harika Olson DO Electromedical Equipment Technician: Signed Harika Olson Work Phone: Start: 08-28-2014 End: 08-29-2014 CTA Abd w/Runoff W/WO Contrast Comments: See Note; NOTES: [facility] Imaging Services [address] [place] [address] CAT Scan Report MR#: [id number] Acct: [id number] Name: KERMIT IGNACIO Rep #: [id number] : 1960 54 From: Maurice Bob MD PCP: Harika Olson DO Status: REG CLI Study: CTA Abd w/Runoff W/WO Contrast Date of Exam: 08/28/14 Exam# [id number] Ordering Dr: Harika Olson DO STUDY: CTA OF THE ABDOMINAL AORTA AND BILATERAL LOWER EXTREMITIES REASON FOR EXAM: Male, 54 years old. Right common femoral artery aneurysm and peripheral arterial disease RADIATION DOSAGE (If Supplied By Facility): CTDIvol = ( 11.17 ) mGy, DLP = ( 1966.72 ) mGycm TECHNIQUE: Axial CT angiography multi-detector data acquisition was obtained from the the diaphragmatic hiatus to the ankles following intravenous administration of 100 ml of Isovue 370 contrast. Axial images and MIP images were reconstructed from the axial data set. Post-processing of the angiographic images was performed, with multiplanar reformation and 3D reconstruction. TECHNICAL QUALITY: Good COMPARISON: CT abdomen pelvis August 15, 2014 Descriptors of Narrowing: None (0%) Mild (< 50%) Moderate (50-70%) Severe (70-90%) Subtotal/Total Occlusion (90-100%) Non-Evaluable (technically non-diagnostic FINDINGS: There is calcified plaque along the aorta and iliac branches bilaterally. Abdominal aorta: No demonstrated narrowing. Celiac and superior mesenteric arteries: No demonstrated narrowing. Inferior mesenteric artery: No demonstrated narrowing. Right renal artery(arteries): No demonstrated narrowing. Left renal artery(arteries): No demonstrated narrowing. Right common iliac artery: No demonstrated narrowing. Right external iliac artery: No demonstrated narrowing. Right internal iliac artery: No demonstrated narrowing. Left common iliac artery: No demonstrated narrowing. Left external iliac artery: No demonstrated narrowing. Left internal iliac artery: No demonstrated narrowing. RIGHT LOWER EXTREMITY Right common femoral artery: There is a fusiform aneurysm measuring 3.8 cm x 3.8 cm in diameter. There is thrombus with the patent lumen. Right profundus femoris: No demonstrated narrowing. Right superficial femoral: No demonstrated narrowing. Right popliteal artery: No demonstrated narrowing. Right tibioperoneal trunk: No demonstrated narrowing. Right anterior tibial artery: No demonstrated narrowing. Right posterior tibial artery: No demonstrated narrowing. Right peroneal artery: No demonstrated narrowing. LEFT LOWER EXTREMITY Left common femoral artery: No demonstrated narrowing. Left profundus femoris: No demonstrated narrowing. Left superficial femoral: No demonstrated narrowing. Left popliteal artery: No demonstrated narrowing. Left tibioperoneal trunk: No demonstrated narrowing. Left anterior tibial artery: No demonstrated narrowing. Left posterior tibial artery: No demonstrated narrowing. Left peroneal artery: No demonstrated narrowing. IMPRESSION: 3.8 cm isolated right common femoral artery aneurysm Electronically Signed: Maurice Bob MD at 22:29 EST , Service support [phone], CC: Guzman Aaron MD; Harika Olson DO Electromedical Equipment Technician: Signed Harika Olson Work Phone: Start: 08-19-2014 End: 08-19-2014 Spmtry w/vc expiratory lyndsay w/wo mxml vol vntj _ Harika Olson Work Phone: Comment on above: good effort and flat insp curve- Start: 08-15-2014 End: 08-15-2014 Abdomen/Pelvis without Cont Comments: See Note; NOTES: [facility] Imaging Services [address] [place] [id number] CAT Scan Report MR#: [id number] Acct: [id number] Name: KERMIT IGNACIO Rep #: [id number] : 1960 M 54 From: Marlyn Rose MD PCP: Harika Oslon DO Status: REG CLI Study: Abdomen/Pelvis without Cont Date of Exam: 08/15/14 Exam# [id number] Ordering Dr: Harika Olson DO STUDY: CT ABDOMEN AND PELVIS WITHOUT CONTRAST REASON FOR EXAM: Male, 54 years old. Intermittent gross hematuria for 2 weeks. RADIATION DOSAGE (If Supplied By Facility): CTDIvol = ( 17.93 ) mGy, DLP = ( 984.86 ) mGycm TECHNIQUE: Transaxial images were obtained from the dome of the diaphragm to the symphysis pubis without oral contrast, and without intravenous contrast. Sagittal and coronal images were reconstructed. COMPARISON: None. FINDINGS: There is mild heterogeneous groundglass attenuation within the right lower lobe and may represent sequela of atelectasis. There is a subpleural nodule on image #12 within the right lower lobe that measures approximately 5 mm in greatest dimension. The visualized portions of the heart are within normal limits. Normal liver. There is non-visualization of the gallbladder, which may be secondary to either contraction or a prior cholecystectomy. Normal spleen. Normal pancreas. Normal bilateral adrenal glands. There is a subtle area of decreased attenuation in the upper pole. This has attenuation of approximately 12 Hounsfield units and is probably a small cyst. The right kidney otherwise has a normal appearance. There is no evidence for hydronephrosis, hydroureter or radiopaque ureteral calculus. Normal left kidney. Normal visualized stomach. There is no evidence for dilated bowel, ascites or pneumoperitoneum. Stool is visible throughout the colon with scattered diverticula. The appendix is visualized and appears normal. There is diffuse atherosclerotic calcification of the abdominal aorta with elongation and mild ectasia, but without a demonstrated aneurysm. Normal inferior vena cava. Normal retroperitoneum. Normal urinary bladder. There are prostatic calcifications. There is aneurysmal dilatation of the right common femoral artery with peripheral atherosclerotic calcification. Maximum transverse dimension of this aneurysm measures approximately 4.1 cm in greatest transverse dimension. The patient may have bilateral inguinal hernias containing fat. There is mild compression fracture of L1. There is mildly exaggerated lumbar doses. There is spondylolysis of L5. The imaged thoracic and lumbar vertebral bodies have generally normal height and alignment. IMPRESSION: 1. Small right-sided renal cyst. 2. Right common femoral artery aneurysm. 3. Spondylolysis of L5. 4. Mild compression fracture of L1 is probably old. Electronically Signed: Marlyn Rose MD at 8:28 EST , Service support [phone], CC: Harika Olson DO Electromedical Equipment Technician: Signed Harika Olson Work Phone: Start: 11-03-2010 Colonoscopy Jennifer Dashawn carlos [facility] Work Phone: Gallbladder Surgery - Laparoscopic Keiry Manchak Gallbladder Surgery - Laparoscopic Sunshine L Long iliac aneurysm repai r right- 2014- diehl Keiry Manchak iliac aneurysm repai r right- 2014- diehl Sunshine L Long Plan of Treatment Date Care Activity Detail Author Start: 05-11-2021 Influenza vaccination INFLUENZ A (Season Ended) [facility] Start: 05-11-2020 Influenza vaccination Flu vaccine (# 1) [place], [place] Start: 09-02-2018 Procedure Education Eprescribe d prescriptions (G8553) [facility] Work Phone: Start: 09-02-2018 Provider Instruction s for Treatment [facility] Work Phone: Start: 09-02-2018 Hemoglobin A1c/Hemoglobin.total mass fraction (Bld) HGB A1C (31769) [facility] Work Phone: Start: 06-14-2018 Provider Instruction s for Treatment [facility] Work Phone: Start: 02-10-2016 PROSTATE CANCER SCREENING DISCUSSION PROSTATE CANCER SCREENING DISCUSSION [facility] Start: 02-02-2016 Procedure Education Eprescribe d prescriptions (G8553) [facility] Work Phone: Start: 02-02-2016 Assay of prostate specific antigen total PSA (PROSTATE SPECIFIC ANTIGEN) (V76.44) [facility] Work Phone: Start: 02-02-2016 Protein mass conc PSA (PROSTAT E SPECIFIC ANTIGEN) (V76.44) [facility] Work Phone: Start: 02-02-2016 Lipid panel LIPID PANEL (43780) [facility] Work Phone: Start: 02-02-2016 Blood count complete automated CBC (AUTO) (22099) [facility] Work Phone: Start: 02-02-2016 25 hydroxy includes fractions if performed Vitamin D Hydroxy (89358) [facility] Work Phone: Start: 02-02-2016 Comprehensive metabo lic panel METABOLIC PANEL, COMPREHENSIVE (89907) [facility] Work Phone: Start: 01-05-2016 Procedure Education Eprescribe d prescriptions (G8553) [facility] Work Phone: Start: 11-03-2015 Screening for malign ant neoplasm of colon [facility] Start: 06-29-2015 Procedure Education Eprescribe d prescriptions (G8553) [facility] Work Phone: Start: 06-29-2015 Provider Instruction s for Treatment Diet, Exercise, and Wt loss [facility] Work Phone: Start: 06-29-2015 Urnls dip stick/tabl et reagent auto microscopy URINALYSIS, W/ MICRO (49142) [facility] Work Phone: Start: 06-29-2015 Blood count complete auto&auto difrntl wbc CBC W/AUTO DIFF WBC (88509) [facility] Work Phone: Start: 06-29-2015 Comprehensive metabo lic panel METABOLIC PANEL, COMPREHENSIVE (90580) [facility] Work Phone: Start: 06-29-2015 25 hydroxy includes fractions if performed Vitamin D Hydroxy (08920) [facility] Work Phone: Start: 06-29-2015 Lipid panel LIPID PANEL (46203) [facility] Work Phone: Start: 03-31-2015 Procedure Education Eprescribe d prescriptions (G8553) [facility] Work Phone: Start: 09-21-2014 Procedure Education Eprescribe d prescriptions (G8553) [facility] Work Phone: Start: 08-14-2014 Culture bacterial quanttative colony count urine URINE ERYN CULTURE-MICHAEL COL COUNT (73207) [facility] Work Phone: Start: 08-11-2014 Procedure Education Eprescribe d prescriptions (G8553) [facility] Work Phone: Start: 08-11-2014 Provider Instruction s for Treatment Diet, Exercise, and Wt loss [facility] Work Phone: Start: 08-11-2014 Assay of prostate specific antigen total PSA (PROSTATE SPECIFIC ANTIGEN) (V76.44) [facility] Work Phone: Start: 08-11-2014 Protein mass conc PSA (PROSTAT E SPECIFIC ANTIGEN) (V76.44) [facility] Work Phone: Start: 08-11-2014 Lipid panel LIPID PANEL (25836) [facility] Work Phone: Start: 08-11-2014 Comprehensive metabo lic panel METABOLIC PANEL, COMPREHENSIVE (79098) [facility] Work Phone: Start: 03-23-2014 Procedure Education Eprescribe d prescriptions (G8553) [facility] Work Phone: Start: 11-08-2013 Comprehensive metabo lic panel METABOLIC PANEL, COMPREHENSIVE (05376) [facility] Work Phone: Start: 11-08-2013 Lipid panel LIPID PANEL (85027) [facility] Work Phone: Start: 11-08-2013 25 hydroxy includes fractions if performed Vitamin D Hydroxy (23743) [facility] Work Phone: Start: 09-01-2013 Patient Education Dietary Appr oaches to Stop Hypertension (The DASH Diet): blood pressure [facility] Work Phone: Start: 09-01-2013 Assay of nephelometr y each analyte fermin serum free light chains (71626) [facility] Work Phone: Start: 10-09-2012 Patient Education High Blood P ressure (Essential Hypertension) *: blood pressure problems [facility] Work Phone: Start: 2011 Screening for malign ant neoplasm of colon [place], [place] Start: 2011 Shingles Vaccine (1 of 2) Shingles Vaccine (1 of 2) [place] Start: 2011 SHINGRIX VACCINE (1 of 2) SHINGRIX VACCINE (1 of 2) [facility] Start: 01-02-2010 DIABETES SCREEN DIABETES SCREEN [facility] Start: 01-12-2009 LIPID SCREEN LIPID SCREEN [facility] Start: 2001 Diabetes screen Diabetes screen [place], [place] Start: 2001 Lipid panel Lipid screen [place], [place] Start: 02-10-1980 DTaP/Tdap/Td vaccine (1 - Tdap) DTaP/Tdap/Td vaccine (1 - Tdap) [place] Start: 02-10-1980 Urine microalbumin profile DTAP,TDAP,TD (1 - Tdap) [facility] Start: 1979 HEPATITIS C SCREENING HEPATITIS C [facility] Start: 1979 HIV SCREENING HIV SCREENING [facility] Start: 02-10-1976 HIV screening HIV screen [place], [place] Start: 1973 Adult depression screening assessment DEPRESSION SCREENING [facility] Start: 1961 Creatinine measurement Creatinine mo nitoring [place], [place] Start: 1961 Hepatitis C screening Hepatitis C sc reen [place], [place] Start: 1961 Potassium monitoring Potassium monit oring [place] End: 03-16-2020 VL Venous Reflux US Lower Ext Bilateral VL Venous Reflux US Lower Ext Bilateral Imaging Routine Varicose veins of left lower extremity with pain 1 Occurrences starting 03/16/2020 until 03/16/2020 [place] Comment on above: 1 Occurrences starti ng 03/16/2020 until 03/16/2020 VL Venous Reflux US Lower Ext Bilateral VL Venous Reflux US Lower Ext Bilateral Imaging Routine Varicose veins of left lower extremity with pain 03/16/2020 3:57 PM EDT [place] [facility] Work Phone: [facility] Work Phone: [facility] Work Phone: [facility] Work Phone: [facility] Work Phone: [facility] Work Phone: [facility] Work Phone: [facility] Work Phone[facility] Work Phone: [facility] Work Phone: [facility] Work Phone: [facility] Work Phone: [facility] Work Phone: Payers Date Payer Category Payer Self-pay [id number] 2021 Private Health Insurance [id number] 2019 Private Health Insurance MARIANA JERONIMO xxxxxxxxxx 2019-Present [phone] [address] [place] [address] xxxxxxxxxx [id number] 2013 Unknown [id number] 2010 Unknown DEANN ZACARIAS BC BS FEP PPO [id number] 2010-Present PPO [id number] 1961 Unknown [id number] Unknown [id number] Unknown [id number] Unknown Medical [facility] Unknown [id number] Unknown [id number] Unknown [id number] Social History Date Type Detail Facility Alcohol Use: Current every day smoker [facility] Work Phone: Caffeine Use [facility] Work Phone: Tobacco use: Current every da y smoker. [facility] Work Phone: Start: 02-23-2020 Tobacco smoking status NHIS Former smoker [place] End: 02-23-2016 History of tobacco use Current smoker [place] Start: 2011 End: 02-23-2020 Alcohol intake Current drinker of alcohol (finding) [place] Start: 02-23-2020 History SDOH Alcohol Std Drinks 1 [place] Start: 02-23-2020 Alcohol Comment chandrakantey [place], [place] Start: 1960 Sex Assigned At Not on file [place] Exposure to SARS-CoV-2 (event) Unable to assess [place], [place] Start: 2011 End: 10-11-2001 Tobacco smoking status NHIS Current every day smoker [facility] Work Phone: Start: 05-10-2007 Alcohol Comment occasionally [facility] Start: 07-01-2019 Tobacco smoking status NHIS Unknown if ever smoked [facility] Start: 07-01-2019 Occasional [facility] Start: 07-01-2019 None [facility] Start: 07-01-2019 Spouse/ Significant Other [facility] Start: 08-10-2019 Non-smoker [facility] Start: 1960 Sex Assigned At Male [facility] Functional Status Date Assessment Result Facility 06-20-2018 LP-IR Score LP-IR Score 65 [facility] Work Phone: Comment on above: INSULIN RESISTANCE Grace BROOKS <--Insulin Sensitive Insulin Resistant--> Percentile in Reference PopulationInsulin Resistance ScoreLP-IR Score Low 25th 50th 75th High <27 27 45 63 >63LP-IR Score is inaccurate if patient is non-fasting. .The LP-IR score is a laboratory developed index that has beenassociated with insulin resistance and diabetes risk and should beused as one component of a physician's clinical assessment. TheLP-IR score listed above has not been cleared by the [place] Food andDrug Administration. PATIENT WAS FASTINGP ERFORMED BY: BN [facility] [id number] [facility] [id number] BY: [facility] [id number] [facility] [id number] Note 12-31-2020 Telephone Encounter - Jennifer Palmer) - 12/31/2020 4:33 PM EDT Note Date & Type Note Facility 12-31-2020 Miscellaneous Notes Recall colonoscopy (2nd call). Pt stated he will have his own doctor schedule him for rpt colonoscopy. Refused number to schedule. documented in this encounter [facility] Note 12-16-2020 Telephone Encounter - Jennifer Palmer) - 12/16/2020 1:35 PM EDT Note Date & Type Note Facility 12-16-2020 Miscellaneous Notes Recall colonoscopy (1st call). Left a message for pt to call [phone] to schedule or call office at [phone] for questions. documented in this encounter [facility] History of Past illness Narrative 07-24-2005 Note Date & Type Note Facility 07-24-2005 History of Past i llness Narrative Problem Noted Date Resolved Date Essential hypertension, malignant 07/24/2005 06/14/2016 documented as of this encounter (statuses as of 12/31/2020) [facility] History of Past illness Narrative 07-24-2005 Note Date & Type Note Facility 07-24-2005 History of Past i llness Narrative Problem Noted Date Resolved Date Essential hypertension, malignant 07/24/2005 06/14/2016 documented as of this encounter (statuses as of 01/07/2021) [facility] Evaluation note Note Date & Type Note Facility Evaluation note [facility] Summary Purpose Family History No Family History Records FoundUnknown Family Member Name Dates Details Father Comments: age 50- my ocardial infarction Status:Active Mother Comments:living htn high cho l- dm Status:Active Unknown Family Member Name Dates Details Father Comments: age 50- my ocardial infarction Status:Active Mother Comments:living htn high cho l- dm Status:Active Relationship Condition Age at Onset Recorded Date/T samir sister Malignant neoplasm of colon Unknown grandfather Cerebrovascular accident (CVA) Unknown Advance Directives No Advanced Directives Records FoundDocuments on File Type Date Recorded 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 Advance Directives and Living Will Power of Manager Digital Instructions Name Dates Details Other hyperlipidemia : How t o access health information online Indication:Other hyperlipidemia Other hyperlipidemia : How t o access health information online - Detail Indication:Other hyperlipidemia Other hyperlipidemia : Patie nt Instructions Indication:Other hyperlipidemia Non-smoker : How to access h ealth information online Indication:Non-smoker Non-smoker : How to access h ealth information online - Detail Indication:Non-smoker Non-smoker : Patient Instruc tions Indication:Non-smoker BMI 29.0-29.9,adult : How to access health information online Indication:BMI 29.0-29.9,adult BMI 29.0-29.9,adult : How to access health information online - Detail Indication:BMI 29.0-29.9,adult BMI 29.0-29.9,adult : Patien t Instructions Indication:BMI 29.0-29.9,adult Hypertension, benign : How t o access health information online Indication:Hypertension, benign Hypertension, benign : How t o access health information online - Detail Indication:Hypertension, benign Hypertension, benign : Patie nt Instructions Indication:Hypertension, benign Acute pharyngitis : Patient Instructions Indication:Acute pharyngitis Nodule of right lung : Patie nt Instructions Indication:Nodule of right lung Hemorrhoids : Patient Instru ctions Indication:Hemorrhoids Tick bite, infected : Patien t Instructions Indication:Tick bite, infected Genital herpes : Patient Ins tructions Indication:Genital herpes Name Dates Details How to access health informa tion online Indication:Thrombophlebitis of superficial veins of left lower extremity Start:28-Apr-2019 Instruction Type:Patient Education How to access health informa tion online - Detail Indication:Thrombophlebitis of superficial veins of left lower extremity Start:28-Apr-2019 Instruction Type:Patient Education Patient Instructions Indication:Thrombophlebitis of superficial veins of left lower extremity Start:28-Apr-2019 Instruction Type:Provider Instructions for Treatment How to access health informa tion online Indication:Other hyperlipidemia Start:02-Sep-2018 Instruction Type:Patient Education How to access health informa tion online - Detail Indication:Other hyperlipidemia Start:02-Sep-2018 Instruction Type:Patient Education Patient Instructions Indication:Other hyperlipidemia Start:02-Sep-2018 Instruction Type:Provider Instructions for Treatment How to access health informa tion online Indication:Non-smoker Start:14-Jun-2018 Instruction Type:Patient Education How to access health informa tion online - Detail Indication:Non-smoker Start:14-Jun-2018 Instruction Type:Patient Education Patient Instructions Indication:Non-smoker Start:14-Jun-2018 Instruction Type:Provider Instructions for Treatment How to access health informa tion online Indication:BMI 29.0-29.9,adult Start:02-Feb-2016 Instruction Type:Patient Education How to access health informa tion online - Detail Indication:BMI 29.0-29.9,adult Start:02-Feb-2016 Instruction Type:Patient Education Patient Instructions Indication:BMI 29.0-29.9,adult Start:02-Feb-2016 Instruction Type:Provider Instructions for Treatment How to access health informa tion online Indication:Hypertension, benign Start:05-Jan-2016 Instruction Type:Patient Education How to access health informa tion online - Detail Indication:Hypertension, benign Start:05-Jan-2016 Instruction Type:Patient Education Patient Instructions Indication:Hypertension, benign Start:05-Jan-2016 Instruction Type:Provider Instructions for Treatment How to access health informa tion online Indication:Hypertension, benign Start:29-Jun-2015 Instruction Type:Patient Education How to access health informa tion online - Detail Indication:Hypertension, benign Start:29-Jun-2015 Instruction Type:Patient Education Patient Instructions Indication:Hypertension, benign Start:29-Jun-2015 Instruction Type:Provider Instructions for Treatment Patient Instructions Indication:Hypertension, benign Start:31-Mar-2015 Instruction Type:Provider Instructions for Treatment Patient Instructions Indication:Acute pharyngitis Start:21-Sep-2014 Instruction Type:Provider Instructions for Treatment Patient Instructions Indication:Nodule of right lung Start:19-Aug-2014 Instruction Type:Provider Instructions for Treatment Patient Instructions Indication:Hemorrhoids Start:11-Aug-2014 Instruction Type:Provider Instructions for Treatment How to access health informa tion online Indication:Hypertension, benign Start:23-Mar-2014 Instruction Type:Patient Education How to access health informa tion online - Detail Indication:Hypertension, benign Start:23-Mar-2014 Instruction Type:Patient Education Patient Instructions Indication:Hypertension, benign Start:23-Mar-2014 Instruction Type:Provider Instructions for Treatment Patient Instructions Indication:Tick bite, infected Start:19-Jan-2014 Instruction Type:Provider Instructions for Treatment Patient Instructions Indication:Hypertension, benign Start:24-Nov-2013 Instruction Type:Provider Instructions for Treatment Patient Instructions Indication:Genital herpes Start:01-Sep-2013 Instruction Type:Provider Instructions for Treatment Patient Instructions Indication:Hypertension, benign Start:09-Oct-2012 Instruction Type:Provider Instructions for Treatment Reason for Referral Status Reason Specialty Diagnoses / Procedures Referred By Contact Referred To Contact Pending Review Radiology Diagnoses Varicose veins of left lower extremity with pain Procedures VL Venous Reflux US Lower Ext Bilateral David Holly MD [address] [facility] [address] [place] [address] Status Reason Specialty Diagnoses / Procedures Referre d By Contact Referred To Contact Open Radiology Diagnoses Atherosclerosis of [place] arteries of extremities with intermittent claudication, left leg (HCC) Procedures VL Arterial PVR Lower w Exercise David Holly MD [address] [place] [address] Assessments Diagnosis Atherosclerosis of [place] arteries of extremities with intermittent claudication, left leg (HCC) Varicose veins of left lower extremity with pain Varicose veins of lower extremities with other complications Chief Complaint and Reason for Visit Chief Complaint LUNG NODULE Additional Source Comments (unrecognized sect ion and content) No Status Records FoundNo Status Records FoundNo Status Records FoundNo Status Records Found INFORMATION SOURCE (unrecogn ized section and content) DATE CREATED AUTHOR 08/28/2018 [facility] DATE CREATED AUTHOR AUTHOR'S ORGANIZ ATION 04/02/2020 [facility] DATE CREATED AUTHOR AUTHOR'S ORGANIZ ATION 01/09/2021 [facility] DATE CREATED AUTHOR AUTHOR'S ORGANIZ ATION 03/29/2024 [facility] Source Comments (unrecognize d section and content) In the event this informatio n is protected by the Federal Confidentiality of Alcohol and Drug Abuse Patient Records regulations: The Federal rules restrict any use of the information to criminally investigate or prosecute any alcohol or drug abuse patient.[facility] the event this information is protected by the Federal Confidentiality of Alcohol and Drug Abuse Patient Records regulations: The Federal rules restrict any use of the information to criminally investigate or prosecute any alcohol or drug abuse patient.[facility] Reason for Visit (unrecogniz ed section and content) Reason Onset Date Comments recall colonoscopy 12/31/2020 Reason Onset Date Comments recall colonoscopy 12/16/2020 Care Teams (unrecognized sec tion and content) Team Status: Active Member Role Status Dates Dr. Shay Olvera MD Family Provider Active Dr. Shay Olvera MD Primary Care Provider Active Team Status: Inactive Member Role Status Dates Dr. Shay Olvera MD Primary Care Provider, Attend ing Provider Active Team Status: Inactive Member Role Status Dates Dr. Shay Olvera MD Primary Care Pr ovider, Attending Provider, Referring Provider Active Goals (unrecognized section and content) Goals may be documented in a n alternate sectionGoals may be documented in an alternate section FOR RECORDS PERTAINING TO PATIENTS WHO ARE OR HAVE BEEN ENROLLED IN A CHEMICAL DEPENDENCY/SUBSTANCEABUSE PROGRAM, SOME INFORMATION MAY BE OMITTED. This clinical summary was aggregated from multiple sources. Caution should be exercised in using it in the provision of clinical care. This summary normalizes information from multiple sources, and as a consequence, information in this document may materially change the coding, format and clinical context of patient data. In addition, data may be omitted in some cases. CLINICAL DECISIONS SHOULD BE BASED ON THE PRIMARY CLINICAL RECORDS. [employer] provides no warranty or guarantee of the accuracy or completeness of information in this document.
== END 2025-03-03 23:59 | disposition home or self-care (01) ==
LOC: MFPLAB 09:02
PROVIDERS: PCP Family Medicine; Referring Provider Family Medicine; Visit Provider Family Medicine
DX: Z12.5 Encounter for screening for malignant neoplasm of prostate (principal); E55.9 Vitamin D deficiency, unspecified
CPT/HCPCS: 36415; 82306; 84153; G0103

== ENCOUNTER → 2025-03-19 | Outpatient (CLI) | payer OTHER, SELFPAY ==
--- NOTE | 2025-03-19 07:55 | CT_ITS ---
EXAM: CT Chest Without Intravenous Contrast CLINICAL INDICATION: NODULE, HISTORY OF SMOKING TECHNIQUE: Axial computed tomography images of the chest without intravenous contrast. This CT exam was performed using one or more of the following dose reduction techniques: automated exposure control, adjustment of the mA and/or kV according to patient size, and/or use of iterative reconstruction technique. COMPARISON: CT Chest dated 03/14/2024 FINDINGS: LUNGS AND PLEURAL SPACES: Stable 6 mm subpleural nodule of the right lower lobe. Lung emphysema with bilateral apical scarring. No consolidation. No significant effusion. No pneumothorax. HEART: Unremarkable. No cardiomegaly. No significant pericardial effusion. No significant coronary artery calcifications. BONES/JOINTS: Unremarkable. No acute fracture. SOFT TISSUES: Unremarkable. VASCULATURE: Unremarkable. No thoracic aortic aneurysm. LYMPH NODES: Unremarkable. No enlarged lymph nodes. CT/Chest without Contrast IMPRESSION: 1. Stable 6 mm subpleural nodule of the right lower lobe. 2. No significant change from the prior exam. Reading Location: [facility]
== END | disposition home or self-care (01) ==
LOC: CT 07:54
PROVIDERS: PCP Family Medicine; Referring Provider Family Medicine; Visit Provider Family Medicine
DX: R91.1 Solitary pulmonary nodule (principal)
CPT/HCPCS: 71250

== ENCOUNTER 2025-08-26 08:43 | Outpatient (CLI) | payer OTHER, SELFPAY ==
[2025-08-26 08:46] LABS: Red Blood Cells-Urine 0 SEEN /hpf (0-5)
[2025-08-26 10:17] LABS: Color, Urine Yellow (Yellow); Glucose, Dipstick Normal (Normal); Ketone-Dipstick Negative (Negative); Leukocyte Esterase-Dipstick Negative /ul (Negative); Nitrite-Dipstick Negative (Negative); Occult Blood-Urine Negative /ul (Negative); Protein-Dipstick 15 mg/dl (Negative); Specific Gravity, Urine 1.020 (1.002-1.030); Urine Bilirubin Dipstick Negative (Negative)
[2025-08-26 10:20] LABS: Hematocrit 44.1 % (40-54); Hemoglobin 14.1 g/dL (13.0-16.5); Immature Granulocytes Count 0.030 X10^3/uL (0.0-0.0); Mean Corp Hgb Conc 32.0 g/dL (32-36); Mean Corpuscular Volume 89.8 fL (80-94); Mean Platelet Vol. 10.0 fl (6.2-12.0); NRBC Flagged by Analyzer 0 % (0-5); Platelet Count 224 K/mm3 (150-450); RBC Distribution Width CV 14.2 % (11.6-14.6); RBC Distribution Width SD 46.7 fl (35.1-43.9); Red Blood Count 4.91 M/mm3 (4.6-6.2); White Blood Count 6.4 K/mm3 (4.4-11.0)
[2025-08-26 10:38] LABS: Mucous, Urine 2+ /hpf (<or=2+); Squamous Epithelial Cells - UA 0-5 SEEN /hpf (0-5)
[2025-08-26 11:04] LABS: BUN 18 mg/dL (4-19); Glucose 79 mg/dL (70-99)
[2025-08-26 11:05] LABS: AST(SGOT) 25 U/L (<=37); Alanine Aminotransfer ALT/SGPT 29 U/L (<=46); Albumin, Serum 4.2 g/dL (3.4-4.8); Alkaline Phosphatase 90 U/L (40-129); Anion Gap 9 (5-15); BUN/Creat Ratio 19.6 RATIO (10-20); Calcium,Total 9.4 mg/dL (7.6-11.0); Carbon Dioxide 26.6 mmol/L (21.0-32.0); Chloride 106 mmol/L (98-108); Cholesterol 208 mg/dL (<=200); Globulin 2.8 g/dL (2.2-4.2); Low Density Lipoprotein Calc. 150 mg/dL; Magnesium 2.3 mg/dL (1.5-2.2); Potassium 4.5 mmol/L (3.3-5.1); Triglycerides 125 mg/dL; Very Low Density Lipoprotein 25 mg/dL (5-40); Vitamin D,25 Hydroxy 75.4 ng/mL (30-100); cholesterol:hdl ratio screen 5.86
== END 2025-08-26 23:59 | disposition home or self-care (01) ==
LOC: MFPLAB 08:43
PROVIDERS: PCP Family Medicine; Visit Provider Family Medicine
DX: I10 Essential (primary) hypertension (principal)
CPT/HCPCS: 36415; 80053; 80061; 81001; 82306; 83735; 85025